=== PATIENT | male | born 1950 | race Two or more races ===

== ENCOUNTER 2023-02-08 10:30 | Outpatient (REF) | payer MEDICARE, SELFPAY ==
[2023-02-08 14:46] LABS: SARS-CoV-2 Ag NEGATIVE (NEGATIVE)
[2023-02-08 15:37] LABS: SARS-CoV-2 NAA NOT DETECTED (NOT DETECTE)
== END 2023-02-08 10:31 ==
LOC: LAB 10:30
PROVIDERS: PCP Internal Medicine; Visit Provider Internal Medicine
DX: Z20.822 Contact with and (suspected) exposure to COVID-19 (principal)
CPT/HCPCS: 87635; 87811

== ENCOUNTER 2023-02-23 19:07 | Inpatient (IN) | payer MEDICARE, SELFPAY ==
[2023-02-23 19:13] VITALS: BP 133/87; PULSE 98; RESP 20; TEMP 37.3; O2SAT 98; BMI 31.6
--- NOTE | 2023-02-23 19:54 | ED_ITS ---
HPI - Abdominal Pain General Chief Complaint: Abdominal Pain Stated Complaint: ABDOMINAL PAIN Time Seen by Provider: 02/23/23 19:45 Source: patient Mode of arrival: walk-in History of Present Illness HPI narrative: presents complaining of a headache. States similar headaches at least once a week for past several months. states upcoming appointment with his physician for the headache. today complains of abdominal pain and uncontrolled shaking chills. States chills finally stop enroute to the hospital. Emesis once enroute as well. Headache continues but has improved. Still has abdominal pain. No diarrhea. No definite fever .Does feel weak MD elicited complaint: Reports abdominal pain Onset (ago): hour(s) Related Data Home Medications Medication Instructions Recorded Confirmed latanoprost 0.005 % eye drops 1 drp ophthalmic (eye) .QHS 02/23/23 02/23/23 losartan 100 1 tab PO DAILY 02/23/23 02/23/23 mg-hydrochlorothiazide 25 mg tablet Allergies Allergy/AdvReac Type Severity Reaction Status Date / Time No Known Drug Allergies Allergy Verified 02/23/23 19:13 Review of Systems ROS Status of ROS 10 or more systems reviewed and unremarkable except as noted in history and below Exam Constitutional Vital Signs - 24 hr 02/23/23 19:13 02/23/23 19:28 02/23/23 21:21 Temperature 99.2 F 99.4 F Pulse Rate [Monitor] 98 H 101 H Respiratory Rate 20 16 Blood Pressure [Left Arm] 133/87 H 100/58 L Pulse Oximetry 98 94 L Oxygen Delivery Method Room Air Room Air Room Air 02/23/23 22:16 Temperature Pulse Rate [Monitor] 105 H Respiratory Rate 16 Blood Pressure [Left Arm] 124/72 H Pulse Oximetry 94 L Oxygen Delivery Method Room Air Common normals: average body habitus, oriented x3, no limitations and well nourished HENDE Common normals: normocephalic and head/scalp atraumatic Eye Common normals: EOMs intact bilaterally and conjunctivae normal Respiratory Common normals: normal respiratory effort, no retractions, no use of accessory muscles and clear to auscultation bilaterally Cardio Common normals: regular rhythm, S1 normal heart sound and S2 normal heart sound GI Other: epigastric tenderness. No guarding or rebound Extremity Common normals: normal to inspection, full ROM and no joint enlargement Neuro Common normals: oriented x3, CN's II-XII intact bilaterally, moves all extremities, no focal motor deficits and no sensory deficits noted Psych Appearance: grossly normal Course Vital Signs Vital signs: Vital Signs Temperature 99.2 F 02/23/23 19:13 Pulse Rate 98 H 02/23/23 19:13 Respiratory Rate 20 02/23/23 19:13 Blood Pressure 133/87 H 02/23/23 19:13 Pulse Oximetry 98 02/23/23 19:13 Oxygen Delivery Method Room Air 02/23/23 19:13 Temperature 99.4 F 02/23/23 21:21 Pulse Rate 105 H 02/23/23 22:16 Respiratory Rate 16 02/23/23 22:16 Blood Pressure 124/72 H 02/23/23 22:16 Pulse Oximetry 94 L 02/23/23 22:16 Oxygen Delivery Method Room Air 02/23/23 22:16 MDM - Abdominal Pain MDM Narrative Medical decision making narrative: patient presents with acute onset of epigastric abdominal pain. Workup reveal acute pancreatitis and also elevation of LFT including alk phos and T. bili. 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 Discussed with Surgery Dr Elam and he recommended the patient be transferred to a facility that could perform an ERCP. Patient accepted in transfer to [facility]. Discussed with the hospitalist and GI Lab Data Labs: Lab Results 02/23/23 Range/Units 19:50 WBC 8.2 (4.0-11.0) 10^3/uL RBC 4.88 (4.70-6.10) 10^6/uL Hgb 15.0 (14.0-18.0) g/dL Hct 41.6 L (42.0-54.0) % MCV 85.2 (80.0-94.0) fL MCH 30.7 (25.9-34.0) pg MCHC 36.1 H (29.9-35.2) g/dL RDW 13.0 (11.0-15.0) % Plt Count 164 (150-450) 10^3/uL MPV 10.4 (9.5-13.5) fL Neut % (Auto) 89.1 H (43.0-75.0) % Lymph % (Auto) 6.5 L (20.5-60.0) % [place] % (Auto) 3.1 (1.7-12.0) % Eos % (Auto) 0.4 L (0.9-7.0) % Baso % (Auto) 0.4 (0.2-2.0) % Neut # (Auto) 7.3 H (1.4-6.5) 10^3/uL Lymph # (Auto) 0.5 L (1.2-3.8) 10^3/uL [place] # (Auto) 0.3 (0.3-0.8) 10^3/uL Eos # (Auto) 0.0 (0.0-0.7) 10^3/uL Baso # (Auto) 0.0 (0.0-0.1) 10^3/uL Abs Immat Gran (auto) 0.04 H (0.00-0.03) 10^3/uL Imm/Tot Granulo (auto) 0.5 (0.0-0.5) % Sodium 137 (136-145) mmol/L Potassium 3.5 (3.5-5.1) mmol/L Chloride 102 (98-107) mmol/L Carbon Dioxide 27.5 (21.0-32.0) mmol/L Anion Gap 11.0 BUN 26.0 H (7.0-18.0) mg/dL Creatinine 1.20 (0.70-1.30) mg/dL Est GFR ( Amer) >60 (>=60) Est GFR (Non-Af Amer) 59 L (>=60) BUN/Creatinine Ratio 21.7 Glucose 139 H (74-106) mg/dL Lactate 1.7 (0.4-2.0) mmol/L Calcium 8.8 (8.5-10.1) mg/dL Total Bilirubin 4.7 H (0.2-1.0) mg/dL AST 107 H (15-37) U/L ALT 149 H (16-63) U/L Alkaline Phosphatase 298 H (46-116) U/L Total Protein 7.1 (6.4-8.2) g/dL Albumin 3.7 (3.4-5.0) g/dL Globulin 3.4 g/dL Albumin/Globulin Ratio 1.1 Lipase 3823.0 H* (73.0-393.0) U/L Urine Color Dk. orange (YELLOW) Urine Clarity Clear (CLEAR) Urine pH 6.0 (5.0-9.0) Ur Specific [place] >=1.030 A (1.005-1.025) Urine Protein Trace (NEG/TRACE) mg/dL Urine Glucose (UA) Negative (NEGATIVE) mg/dL Urine Ketones Trace A (NEGATIVE) mg/dL Urine Occult Blood Negative (NEGATIVE) Urine Nitrite Negative (NEGATIVE) Urine Bilirubin Moderate A (NEGATIVE) Urine Urobilinogen >=8.0 (0.2-1.0) EU/dL Ur Leukocyte Esterase Negative (NEGATIVE) Urine RBC 0-2 (0-2) #/HPF Urine WBC 0-2 A (NONE SEEN) #/HPF Ur Squamous Epith Cells Few A (NONE/RARE) #/LPF Urine Crystals None seen (None Seen) #/HPF Urine Bacteria Trace A (NONE SEEN) #/HPF Urine Casts None seen (NONE SEEN) #/LPF Urine Mucus Small A (NONE SEEN) Ur Culture Indicated? No Discharge Plan Discharge Chief Complaint: Abdominal Pain Clinical Impression: Acute pancreatitis Patient Disposition: [facility] Discharge Location: [facility] Condition: Fair Mode of Transportation: EMS
--- NOTE | 2023-02-23 19:57 | CT_ITS ---
[address] [address] Patient Name: YAEL POE MRN: [id number] date: 1950 Sex: M Assigned Patient Location: ER Current Patient Location: ER Accession/Order Number: [id number] Exam Date: 02/23/2023 20:45 Report Date: 02/23/2023 21:36 At the request of: SANTY ROBIN Procedure: CT abdomen pelvis w con EXAM: CT abdomen pelvis w con HISTORY: abdominal pain COMPARISON: 04/06/2022 TECHNIQUE: CT of abdomen and pelvis with intravenous contrast FINDINGS: TUBES AND IMPLANTS: None. LOWER CHEST: Mild cystic changes which may represent paraseptal emphysema. Mild cardiomegaly. Small hiatal hernia. ABDOMEN and PELVIS ABDOMINAL WALL AND SOFT TISSUES: Unremarkable. BONES: No suspicious lesions. Multilevel degenerative changes of the spine. ARTERIES: Mild aortoiliac atherosclerosis without aneurysm VEINS: Unremarkable. LYMPH NODES: Unremarkable. PERITONEUM/ RETROPERITONEUM: Unremarkable. BOWEL: No obstruction. Redemonstration of small bowel diverticula. Mild colonic diverticula APPENDIX: Unremarkable LIVER: No focal lesions within the [id number] GALLBLADDER: Unremarkable. BILE DUCTS: Not dilated SPLEEN: Enlarged measuring 15.5 centimeters PANCREAS: Unremarkable. ADRENALS: Unremarkable. KIDNEYS/ URETERS: Unremarkable. REPRODUCTIVE ORGANS: Unremarkable URINARY BLADDER: Unremarkable. IMPRESSION: 1. No evidence of acute abdominopelvic process. 2. Splenomegaly. 3. Mild colonic diverticulosis. Redemonstration of small bowel diverticula. 4. Small hiatal hernia. 5. Mild cardiomegaly. Electronically authenticated by: ERIKA WRIGHT Date: 02/23/2023 21:36
--- NOTE | 2023-02-23 19:57 | CT_ITS ---
The [address] [address] Patient Name: YAEL POE MRN: [id number] date: 1950 Sex: M Assigned Patient Location: ER Current Patient Location: ER Accession/Order Number: [id number] Exam Date: 02/23/2023 20:45 Report Date: 02/23/2023 21:14 At the request of: SANTY ROBIN Procedure: CT head/brain wo con EXAMINATION: CT head/brain wo con, 02/23/2023 8:45 PM EDT HISTORY: Headache COMPARISON: None. TECHNIQUE: CT scan of the head was performed without IV contrast. CT dose reduction technique was used, including Automated Exposure Control. FINDINGS: BRAIN PARENCHYMA/CSF SPACES: Ventricles are normal in size for age. There is no hemorrhage, mass effect or midline shift. Mild low attenuation in the white matter consistent with chronic microvascular ischemia. PARANASAL SINUSES: Clear. SKULL BASE AND CALVARIUM: Normal. EXTRACRANIAL SOFT TISSUES: There is scalp soft tissue swelling at the vertex. IMPRESSION: 1. No acute intracranial abnormality. 2. Scalp soft tissue swelling at the vertex. Electronically authenticated by: JIMBO RITTER Date: 02/23/2023 21:14
[2023-02-23 20:10] LABS: Basophils Percent Auto 0.4 % (0.2-2.0); Bilirubin Urine MODERATE (NEGATIVE); Blood Urine NEGATIVE (NEGATIVE); Clarity Urine CLEAR (CLEAR); Color Urine DK. ORANGE (YELLOW); Eosinophils Percent Auto 0.4 % (0.9-7.0); Glucose Urine UA NEGATIVE (NEGATIVE); Hematocrit 41.6 % (42.0-54.0); Immature Granulocytes Abs Auto 0.04 10^3/uL (0.00-0.03); Immature Granulocytes Pct Auto 0.5 % (0.0-0.5); Ketones Urine TRACE mg/dL (NEGATIVE); Leukocyte Esterase Urine NEGATIVE (NEGATIVE); Lymphocytes Absolute Auto 0.5 10^3/uL (1.2-3.8); Lymphocytes Percent Auto 6.5 % (20.5-60.0); Mean Corpuscular HGB Conc 36.1 g/dL (29.9-35.2); Mean Corpuscular Hemoglobin 30.7 pg (25.9-34.0); Mean Corpuscular Volume 85.2 fL (80.0-94.0); Mean Platelet Volume 10.4 fL (9.5-13.5); Monocytes Absolute Auto 0.3 10^3/uL (0.3-0.8); Monocytes Percent Auto 3.1 % (1.7-12.0); Neutrophils Absolute Auto 7.3 10^3/uL (1.4-6.5); Neutrophils Percent Auto 89.1 % (43.0-75.0); Nitrite Urine NEGATIVE (NEGATIVE); Platelet Count 164 10^3/uL (150-450); Protein Urine TRACE mg/dL (NEG/TRACE); Red Blood Count 4.88 10^6/uL (4.70-6.10); Specific Gravity Urine >=1.030 (1.005-1.025); Urobilinogen Urine >=8.0 EU/dL (0.2-1.0); White Blood Count 8.2 10^3/uL (4.0-11.0)
[2023-02-23 20:11] LABS: Urine Microscopic Indicated YES
[2023-02-23] MEDS: 0.9 % SODIUM CHLORIDE 1,000 ML 999 ML IV ×2 (20:16→22:33)
[2023-02-23] MEDS: METOCLOPRAMIDE HCL 10 MG/2 ML VIAL IVP (20:17)
[2023-02-23] MEDS: MORPHINE SULFATE 4 MG/ML VIAL IV (20:17)
[2023-02-23 20:31] LABS: Lactate/Lactic Acid 1.7 mmol/L (0.4-2.0)
[2023-02-23 20:33] LABS: Bacteria Urine TRACE #/HPF (NONE SEEN); Cast Seen? NONE SEEN #/LPF (NONE SEEN); Crystals Seen? None Seen #/HPF (None Seen); Mucus Urine SMALL (NONE SEEN); RBC Urine 0-2 #/HPF (0-2); Squamous Epithelial Cell Urine FEW #/LPF (NONE/RARE); WBC Urine 0-2 #/HPF (NONE SEEN)
[2023-02-23 20:34] LABS: Urine Culture Indicated NO
[2023-02-23 20:38] LABS: Alanine Aminotransferase 149 U/L (16-63); Albumin Globulin Ratio 1.1; Albumin Level 3.7 g/dL (3.4-5.0); Alkaline Phosphatase 298 U/L (46-116); Aspartate Amino Transferase 107 U/L (15-37); BUN Creatinine Ratio 21.7; Bilirubin Total 4.7 mg/dL (0.2-1.0); Calcium 8.8 mg/dL (8.5-10.1); Carbon Dioxide 27.5 mmol/L (21.0-32.0); Chloride 102 mmol/L (98-107); Estimated GFR (African America >60 (>=60); Estimated GFR (Non-African Ame 59 (>=60); Globulin 3.4 g/dL; Glucose 139 mg/dL (74-106); Potassium 3.5 mmol/L (3.5-5.1); Sodium 137 mmol/L (136-145); Total Protein 7.1 g/dL (6.4-8.2)
--- NOTE | 2023-02-23 20:55 | PC.NURSE ---
aware of the Lipase of 3823 called by Beth in lab at 2036
[2023-02-23 21:21] VITALS: BP 100/58; PULSE 101; RESP 16; TEMP 37.4; O2SAT 94
[2023-02-23 22:16] VITALS: BP 124/72; PULSE 105; RESP 16; O2SAT 94
[2023-02-23] MEDS: PIPERACILLIN SODIUM/TAZOBACTAM 3.375 GM in 0.9 % SODIUM CHLORIDE 50 ML IV (23:39)
[2023-02-24] VITALS (12 sets, daily range): BP systolic 86–131; BP diastolic 49–79; PULSE 74–103; RESP 18–20; TEMP 36.8–37.1; O2SAT 92–94; BMI 31.5
--- NOTE | 2023-02-24 10:53 | ED_ITS ---
HPI - Abdominal Pain General Chief Complaint: Abdominal Pain Stated Complaint: ABDOMINAL PAIN Time Seen by Provider: 02/23/23 19:45 Source: patient Mode of arrival: walk-in History of Present Illness HPI narrative: please see Dr. Gaitan full history and physical MD elicited complaint: Reports abdominal pain Related Data Home Medications Medication Instructions Recorded Confirmed latanoprost 0.005 % eye drops 1 drp ophthalmic (eye) .QHS 02/23/23 02/23/23 losartan 100 1 tab PO DAILY 02/23/23 02/23/23 mg-hydrochlorothiazide 25 mg tablet Allergies Allergy/AdvReac Type Severity Reaction Status Date / Time No Known Drug Allergies Allergy Verified 02/23/23 19:13 Exam Constitutional Vital Signs - 24 hr 02/23/23 19:28 02/23/23 21:21 02/23/23 22:16 Temperature 99.4 F Pulse Rate [Monitor] 101 H 105 H Respiratory Rate 16 16 Blood Pressure Blood Pressure [Left Arm] 100/58 L 124/72 H Pulse Oximetry 94 L 94 L Oxygen Delivery Method Room Air Room Air Room Air 02/24/23 01:12 02/24/23 03:01 02/24/23 04:00 Temperature 98.8 F Pulse Rate [Monitor] 103 H 96 H Respiratory Rate 20 20 Blood Pressure Blood Pressure [Left Arm] 98/65 114/71 108/66 Pulse Oximetry 94 L 94 L 92 L Oxygen Delivery Method Room Air Room Air Room Air 02/24/23 05:50 02/24/23 05:50 02/24/23 06:19 Temperature Pulse Rate [Monitor] 86 Respiratory Rate 18 Blood Pressure Blood Pressure [Left Arm] 106/64 116/66 Pulse Oximetry 94 L 94 L Oxygen Delivery Method Room Air Room Air 02/24/23 07:00 02/24/23 08:00 02/24/23 09:00 Temperature Pulse Rate [Monitor] Respiratory Rate Blood Pressure 116/49 L 113/71 86/58 L Blood Pressure [Left Arm] Pulse Oximetry 92 L 93 L 93 L Oxygen Delivery Method 02/24/23 09:00 02/24/23 09:40 02/24/23 10:00 Temperature Pulse Rate [Monitor] Respiratory Rate Blood Pressure 86/58 L 117/66 111/66 Blood Pressure [Left Arm] Pulse Oximetry 93 L 92 L 94 L Oxygen Delivery Method Course Vital Signs Vital signs: Vital Signs Temperature 99.2 F 02/23/23 19:13 Pulse Rate 98 H 02/23/23 19:13 Respiratory Rate 20 02/23/23 19:13 Blood Pressure 133/87 H 02/23/23 19:13 Pulse Oximetry 98 02/23/23 19:13 Oxygen Delivery Method Room Air 02/23/23 19:13 Temperature 98.3 F 02/24/23 18:47 Pulse Rate 79 02/24/23 18:47 Respiratory Rate 18 02/24/23 18:47 Blood Pressure 117/72 02/24/23 18:47 Pulse Oximetry 94 L 02/24/23 18:47 Oxygen Delivery Method Room Air 02/24/23 18:47 MDM - Abdominal Pain MDM Narrative Medical decision making narrative: the plan is to transfer the patient to [facility] but at this point I do not have a bed. He will be admitted here until a bed is available at [facility]. The patient is being transferred because he needs ERCP. Differential Diagnosis Differential diagnosis: Likely abdominal pain, constipation, gastroenteritis and pancreatitis Lab Data Attestation: I reviewed the patient's lab results. Labs: Lab Results 02/23/23 Range/Units 19:50 WBC 8.2 (4.0-11.0) 10^3/uL RBC 4.88 (4.70-6.10) 10^6/uL Hgb 15.0 (14.0-18.0) g/dL Hct 41.6 L (42.0-54.0) % MCV 85.2 (80.0-94.0) fL MCH 30.7 (25.9-34.0) pg MCHC 36.1 H (29.9-35.2) g/dL RDW 13.0 (11.0-15.0) % Plt Count 164 (150-450) 10^3/uL MPV 10.4 (9.5-13.5) fL Neut % (Auto) 89.1 H (43.0-75.0) % Lymph % (Auto) 6.5 L (20.5-60.0) % [place] % (Auto) 3.1 (1.7-12.0) % Eos % (Auto) 0.4 L (0.9-7.0) % Baso % (Auto) 0.4 (0.2-2.0) % Neut # (Auto) 7.3 H (1.4-6.5) 10^3/uL Lymph # (Auto) 0.5 L (1.2-3.8) 10^3/uL [place] # (Auto) 0.3 (0.3-0.8) 10^3/uL Eos # (Auto) 0.0 (0.0-0.7) 10^3/uL Baso # (Auto) 0.0 (0.0-0.1) 10^3/uL Abs Immat Gran (auto) 0.04 H (0.00-0.03) 10^3/uL Imm/Tot Granulo (auto) 0.5 (0.0-0.5) % Sodium 137 (136-145) mmol/L Potassium 3.5 (3.5-5.1) mmol/L Chloride 102 (98-107) mmol/L Carbon Dioxide 27.5 (21.0-32.0) mmol/L Anion Gap 11.0 BUN 26.0 H (7.0-18.0) mg/dL Creatinine 1.20 (0.70-1.30) mg/dL Est GFR ( Amer) >60 (>=60) Est GFR (Non-Af Amer) 59 L (>=60) BUN/Creatinine Ratio 21.7 Glucose 139 H (74-106) mg/dL Lactate 1.7 (0.4-2.0) mmol/L Calcium 8.8 (8.5-10.1) mg/dL Total Bilirubin 4.7 H (0.2-1.0) mg/dL AST 107 H (15-37) U/L ALT 149 H (16-63) U/L Alkaline Phosphatase 298 H (46-116) U/L Total Protein 7.1 (6.4-8.2) g/dL Albumin 3.7 (3.4-5.0) g/dL Globulin 3.4 g/dL Albumin/Globulin Ratio 1.1 Lipase 3823.0 H* (73.0-393.0) U/L Urine Color Dk. orange (YELLOW) Urine Clarity Clear (CLEAR) Urine pH 6.0 (5.0-9.0) Ur Specific [place] >=1.030 A (1.005-1.025) Urine Protein Trace (NEG/TRACE) mg/dL Urine Glucose (UA) Negative (NEGATIVE) mg/dL Urine Ketones Trace A (NEGATIVE) mg/dL Urine Occult Blood Negative (NEGATIVE) Urine Nitrite Negative (NEGATIVE) Urine Bilirubin Moderate A (NEGATIVE) Urine Urobilinogen >=8.0 (0.2-1.0) EU/dL Ur Leukocyte Esterase Negative (NEGATIVE) Urine RBC 0-2 (0-2) #/HPF Urine WBC 0-2 A (NONE SEEN) #/HPF Ur Squamous Epith Cells Few A (NONE/RARE) #/LPF Urine Crystals None seen (None Seen) #/HPF Urine Bacteria Trace A (NONE SEEN) #/HPF Urine Casts None seen (NONE SEEN) #/LPF Urine Mucus Small A (NONE SEEN) Ur Culture Indicated? No Discharge Plan Discharge Chief Complaint: Abdominal Pain Clinical Impression: Acute pancreatitis Patient Disposition: Admitted As Inpatient Time of Disposition Decision: 10:55 Condition: Fair Discharge Date/Time: 02/24/23 11:36
[2023-02-24] MEDS: 0.9 % SODIUM CHLORIDE 1,000 ML 100 ML IV (13:39)
[2023-02-24] MEDS: PIPERACILLIN SODIUM/TAZOBACTAM 3.375 GM in 0.9 % SODIUM CHLORIDE 50 ML IV (14:59)
--- NOTE | 2023-02-24 18:12 | P.HP_ITS ---
H&P: HPI History of Present Illness Chief complaint: Abdominal pain Narrative: 72 y/o male to ER with abdominal pain. Developed diffuse abdominal pain and in epigastric region. No radiation to other parts of abdomen or back. Severe nausea and started to have emesis. C/o cold chills but no fever. Developed s evere GU. Symptoms persisted and to ER. WBC normal and low grade temp. LFTs and TB elevated. Lipase very high at 3823. CT abdomen normal. Case discussed with surgeon who felt patient needed transferred for ERCP. Accepted for transfer but no beds available and admitted. Review of Systems ROS Constitutional Reports: chills; Denies: fever, fatigue or night sweats Cardiovascular Denies: chest pain, palpitations or edema Respiratory Denies: shortness of breath, cough or wheezing Gastrointestinal Reports: abdominal pain, nausea and vomiting; Denies: diarrhea Genitourinary Denies: painful urination Meds Home Medications and Allergies Home Medications Medication Instructions Recorded Confirmed Type latanoprost 0.005 % eye drops 1 drp ophthalmic (eye) .QHS 02/23/23 02/23/23 History losartan 100 1 tab PO DAILY 02/23/23 02/23/23 History mg-hydrochlorothiazide 25 mg tablet Allergies Allergy/AdvReac Type Severity Reaction Status Date / Time No Known Drug Allergies Allergy Verified 02/23/23 19:13 Exam Constitutional Vital Signs - 24 hr 02/23/23 19:13 02/23/23 19:28 02/23/23 21:21 Temperature 99.2 F 99.4 F Pulse Rate Pulse Rate [Monitor] 98 H 101 H Respiratory Rate 20 16 Blood Pressure Blood Pressure [Left Arm] 133/87 H 100/58 L Pulse Oximetry 98 94 L Oxygen Delivery Method Room Air Room Air Room Air 02/23/23 22:16 02/24/23 01:12 02/24/23 03:01 Temperature 98.8 F Pulse Rate Pulse Rate [Monitor] 105 H 103 H 96 H Respiratory Rate 16 20 20 Blood Pressure Blood Pressure [Left Arm] 124/72 H 98/65 114/71 Pulse Oximetry 94 L 94 L 94 L Oxygen Delivery Method Room Air Room Air Room Air 02/24/23 04:00 02/24/23 05:50 02/24/23 05:50 Temperature Pulse Rate Pulse Rate [Monitor] Respiratory Rate Blood Pressure Blood Pressure [Left Arm] 108/66 106/64 Pulse Oximetry 92 L 94 L Oxygen Delivery Method Room Air Room Air 02/24/23 06:19 02/24/23 07:00 02/24/23 08:00 Temperature Pulse Rate Pulse Rate [Monitor] 86 Respiratory Rate 18 Blood Pressure 116/49 L 113/71 Blood Pressure [Left Arm] 116/66 Pulse Oximetry 94 L 92 L 93 L Oxygen Delivery Method Room Air 02/24/23 09:00 02/24/23 09:00 02/24/23 09:40 Temperature Pulse Rate Pulse Rate [Monitor] Respiratory Rate Blood Pressure 86/58 L 86/58 L 117/66 Blood Pressure [Left Arm] Pulse Oximetry 93 L 93 L 92 L Oxygen Delivery Method 02/24/23 10:00 02/24/23 11:44 Temperature 98.3 F Pulse Rate 74 Pulse Rate [Monitor] Respiratory Rate 18 Blood Pressure 111/66 Blood Pressure [Left Arm] 131/79 H Pulse Oximetry 94 L 94 L Oxygen Delivery Method Room Air Documenting provider has reviewed patient's vital signs: yes Common normals: no apparent distress, oriented x3 and alert HENMT Common normals: normocephalic Eye Common normals: PERRL and EOMs intact bilaterally Respiratory Common normals: clear to auscultation bilaterally Cardio Common normals: regular rate, regular rhythm, no gallops, no murmurs and no rub GI Common normals: soft to palpation Auscultation: normoactive bowel sounds Palpation: tender (Diffuse TTP); no guarding and no rebound tenderness present Extremity General: no edema Results Labs Labs: Short CBC 02/23/23 Range/Units 19:50 WBC 8.2 (4.0-11.0) 10^3/uL Hgb 15.0 (14.0-18.0) g/dL Hct 41.6 L (42.0-54.0) % Plt Count 164 (150-450) 10^3/uL BMP 02/23/23 19:50 Sodium 137 Potassium 3.5 Chloride 102 Carbon Dioxide 27.5 BUN 26.0 H Creatinine 1.20 Glucose 139 H Calcium 8.8 Liver Function 02/23/23 Range/Units 19:50 Total Bilirubin 4.7 H (0.2-1.0) mg/dL AST 107 H (15-37) U/L ALT 149 H (16-63) U/L Alkaline Phosphatase 298 H (46-116) U/L Albumin 3.7 (3.4-5.0) g/dL Urine 02/23/23 Range/Units 19:50 Urine Color Dk. orange (YELLOW) Urine Clarity Clear (CLEAR) Urine pH 6.0 (5.0-9.0) Ur Specific [place] >=1.030 A (1.005-1.025) Urine Protein Trace (NEG/TRACE) mg/dL Urine Glucose (UA) Negative (NEGATIVE) mg/dL Imaging CT scan - abdomen: Attestation: I have reviewed the pertinent imaging results. Assessment and Plan Assessment and Plan (1) Acute pancreatitis: (2) Elevated liver enzymes: (3) Benign essential hypertension: Plan Start zosyn for concern of sepsis due to ascending cholangitis. Likely stone causing pancreatitis as evidenced by elevated LFTs and bilirubin. Patient likely needs ERCP. Continue IV fluids. Will transfer to [facility] once bed available.
[2023-02-24] MEDS: ENOXAPARIN SODIUM 40 MG/0.4 ML SYRINGE SUBQ (19:24)
== END 2023-02-24 19:57 | disposition short-term general hospital (02) | DRG 439 ==
LOC: ER 02-24 10:55 → MS 02-24 11:02
PROVIDERS: Admitting Provider Family Medicine; Emergency Provider Internal Medicine; PCP Internal Medicine; Visit Provider Family Medicine
DX: K85.90 Acute pancreatitis without necrosis or infection, unspecified (principal); K80.30 Calculus of bile duct with cholangitis, unspecified, without obstruction; R74.01 Elevation of levels of liver transaminase levels; I10 Essential (primary) hypertension; Z79.899 Other long term (current) drug therapy
CPT/HCPCS: 36415; 70450; 74177; 80053; 81003; 81015; 83605; 83690; 85025; 96365; 96366; 96372; 96375; 99285; Q9967

== ENCOUNTER 2023-06-29 14:27 | Outpatient (OUT) | payer MEDICARE, SELFPAY ==
[2023-06-29 14:54] LABS: Basophils Percent Auto 0.6 % (0.2-2.0); Eosinophils Absolute Auto 0.1 10^3/uL (0.0-0.7); Eosinophils Percent Auto 1.5 % (0.9-7.0); Hematocrit 44.2 % (42.0-54.0); Hemoglobin 15.3 g/dL (14.0-18.0); Immature Granulocytes Abs Auto 0.02 10^3/uL (0.00-0.03); Immature Granulocytes Pct Auto 0.3 % (0.0-0.5); Lymphocytes Absolute Auto 1.9 10^3/uL (1.2-3.8); Lymphocytes Percent Auto 28.7 % (20.5-60.0); Mean Corpuscular HGB Conc 34.6 g/dL (29.9-35.2); Mean Corpuscular Hemoglobin 30.9 pg (25.9-34.0); Mean Corpuscular Volume 89.3 fL (80.0-94.0); Mean Platelet Volume 10.6 fL (9.5-13.5); Monocytes Absolute Auto 0.4 10^3/uL (0.3-0.8); Monocytes Percent Auto 5.8 % (1.7-12.0); Neutrophils Absolute Auto 4.1 10^3/uL (1.4-6.5); Neutrophils Percent Auto 63.1 % (43.0-75.0); Platelet Count 158 10^3/uL (150-450); Red Blood Count 4.95 10^6/uL (4.70-6.10); Red Cell Distribution Width 12.7 % (11.0-15.0); White Blood Count 6.5 10^3/uL (4.0-11.0)
[2023-06-29 14:58] LABS: BUN Creatinine Ratio 20.6; Calcium 8.7 mg/dL (8.5-10.1); Carbon Dioxide 31.4 mmol/L (21.0-32.0); Chloride 104 mmol/L (98-107); Estimated GFR (African America >60 (>=60); Estimated GFR (Non-African Ame >60 (>=60); Glucose 124 mg/dL (74-106); Potassium 3.4 mmol/L (3.5-5.1); Sodium 142 mmol/L (136-145)
[2023-06-29 15:18] LABS: Percent Iron Saturation 19.1 %
[2023-06-30 12:12] LABS: Transferrin 267 mg/dL (177-329)
--- OUTSIDE RECORDS SUMMARY | 2023-08-09 15:47 | XMS_ITS | CCD ---
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 Name Role Phone MD Frank Rivas Attending Provider MD Kindra Rosales Primary Care Provider [phone] SHAIKH Colby ROSALES Primary Care Unavailable KIMBERLY, DR GALEAS Admitting Unavailable KIMBERLY, DR GALEAS Attending Unavailable AVEL, DR RAFAELA Pierson Consulting Unavailable KIMBERLY, DR GALEAS Consulting Unavailable BOBBY, JIMENES H Admitting Unavailable FASHAIKH Colby BUENO Attending Unavailable BOBBY, JIMENES H Primary Care Unavailable RAFAELA CALL Consulting Unavailable FAMYLES, SHAIKH Colby Consulting Unavailable FAMYLES, JIMENES H Admitting Unavailable SHAIKH Colby ROSALES Attending Unavailable BOBBY, JIMENES H Primary Care Unavailable FAWGRETCEHN, JIMENES H Consulting Unavailable FAMYLES, JIMENES H Primary Care Unavailable KIMBERLY, DR GALEAS Admitting Unavailable KIMBERLY, DR GALEAS Attending Unavailable SANDY COBOS Consulting Unavailable Gordo Pinto Unavailable Unavailable Primary Care Provider UnavailLUCAS Palmer Consulting Unavailable NORA DE ANDA Attending Unavailable TOMÁS LOPEZ Admitting Unavailable SANTY DO Referring Unavailable ARLIN HANNHA Consulting Unavailable NATASHA WHITNEY Consulting Unavailable SANTO WOODRUFF Consulting Unavail able Allergies Allergy Classification Reported Allergen(s) Allergy Type Date of Onset Reaction(s) Facility (1 source) Penicillin Drug Allergy 12-13-2021 [facility] Repository Medications Current Medications Medication Drug Class(es) Dates Sig (Normalized) Sig (Original) acetaminophen 500 mg oral tablet (2 sources) Start: 3 End: 3 acetaminophen (TYLENOL) tablet 1,000 mg dicyclomine hydrochloride 10 mg oral capsule (1 source) Anticholinergic Start: 3 dicyclomine (BENTYL) capsule 20 mg 0.4 ml enoxaparin sodium 100 mg/ml prefilled syringe (1 source) Low Molecular Weight Heparin Start: 3 enoxaparin (LOVENOX) injection 40 mg hydroCHLOROthiazide 25 mg / losartan potassium 100 mg oral tablet (1 source) Thiazide Diuretic, Angiotensin 2 Receptor Shaji Start: 2 take 1 tablet by mouth once daily Losartan-Hydrochlo rothiazide Active 25 - 100 TAB PO Daily January 13, 2022 1:46pm 100 ml magnesium sulfate 10 mg/ml injection (1 source) Start: 3 magnesium sulfate 1000 mg in dextrose 5% 100 mL IVPB methocarbamol 750 mg oral tablet (1 source) Muscle Relaxant Start: 3 methocarbamol (ROBAXIN) tablet 750 mg ondansetron 4 mg disintegrating oral tablet (1 source) Serotonin-3 Receptor Antagonist Start: 2 Ondansetron Active 4 MG PO As Directed January 13, 2022 1:46pm ondansetron (ZOFRAN-ODT) disintegrating tablet 4 mg (1 source) Start: 3 ondansetron (ZOFRAN-ODT) disintegrating tablet 4 mg oxyCODONE hydrochloride 5 mg oral tablet (2 sources) Opioid Agonist Start: 3 End: 3 take 1 tablet by mouth every six hours as needed for pain oxyCODONE (ROXICODONE) 5 MG immediate release tablet Indications: Acute cholecystitis due to biliary calculus Take 1 tablet by mouth every 6 hours as needed for Pain for up to 5 days. Max Daily Amount: 20 mg 20 tablet 0 03/02/2023 03/07/2023 Active Completed/Discontinued Medications Medication Drug Class(es) Dates Sig (Normalized) Sig (Original) hydroCHLOROthiazide 25 mg oral tablet (2 sources) Thiazide Diuretic Start: 02-27-2023 take 25 mg by mouth once daily 25 mg, Oral, DAILY, First dose on 02/27/23 at 2115, Until Discontinued 1 ml HYDROmorphone hydrochloride 1 mg/ml cartridge (2 sources) Opioid Agonist Start: 02-28-2023 End: 02-28-2023 HYDROmorphone (DILAUDID) injection 0.5 mg Start: 02-28-2023 End: 02-28-2023 HYDROmorphone (DILAUDID) inj ection 0.25 mg losartan potassium 50 mg oral tablet (2 sources) Angiotensin 2 Receptor Shaji Start: 02-27-2023 take 100 mg by mouth once daily 100 mg, Oral, DAILY, First dose on 02/27/23 at 2115, Until Discontinued take 1 tablet by mouth once samantha y losartan (COZAAR) 100 MG tablet Take 1 tablet by mouth daily 0 Active piperacillin-tazobactam (ZOS YN) 3,375 mg in sodium chloride 0.9 % 50 mL IVPB (mini-bag) (1 source) Start: 02-28-2023 End: 03-03-2023 piperacillin-tazobactam (ZOS YN) 3,375 mg in sodium chloride 0.9 % 50 mL IVPB (mini-bag) microencapsulated potassium chloride 20 meq extended release oral tablet (4 sources) Start: 02-27-2023 End: 02-27-2023 potassium chloride (KLOR-CON M) extended release tablet 20 mEq Start: 02-24-2023 End: 02-27-2023 potassium chloride 10 mEq/10 0 mL IVPB (Peripheral Line) 1000 ml sodium chloride 9 mg /ml injection (4 sources) Start: 02-24-2023 sodium chlorid e flush 0.9 % injection 5-40 mL Start: 02-24-2023 End: 03-01-2023 0.9 % sodium chloride infusi on Problems Active Problems Problem Classification Problem Date Documented Date Episodic/Chronic Abdominal pain (4 sources) Unspecified abdominal pain; Translations: [UNSPECIFIED ABDOMINAL PAIN] Onset: 04-06-2022 Episodic Biliary tract disease (3 sources) Acute cholecystitis due to biliary calculus; Translations: [Calculus of gallbladder with acute cholecystitis without obstruction] Onset: 02-24-2023 Episodic Essential hypertension (2 sources) Essential hypertension; Translations: [Essential (primary) hypertension] Onset: 02-25-2023 Chronic Fluid and electrolyte disorders (2 sources) Hypokalemia; Translations: [Dehydration] Onset: 12-15-2021 Episodic Other ear and sense organ disorders (2 sources) Hearing loss; Translations: [Unspecified hearing loss, unspecified ear] Onset: 02-25-2023 Chronic Other liver diseases (4 sources) Abnormal levels of other serum enzymes; Translations: [ABNORMAL LEVELS OTHER SERUM ENZYMES] Onset: 04-15-2022 Episodic Other liver diseases (2 sources) Enzyme level - finding; Translations: [Transaminitis] Onset: 02-25-2023 Episodic Other liver diseases (2 sources) Alkaline phosphatase raised; Translations: [Abnormal levels of other serum enzymes] Onset: 02-25-2023 Episodic Other nutritional; endocrine; and metabolic disorders (2 sources) Hyperbilirubinemia; Translations: [Other disorders of bilirubin metabolism] Onset: 02-25-2023 Chronic Pancreatic disorders (not diabetes) (2 sources) Acute pancreatitis; Translations: [Acute pancreatitis without necrosis or infection, unspecified] Onset: 02-24-2023 Episodic Past or Other Problems Problem Classification Problem Date Documented Da te Episodic/Chronic Acute and unspecified renal failure (4 sources) Acute kidney failure, unspecified; Translations: [ACUTE KIDNEY FAILURE UNSPECIFIED] Onset: 12-16-2021 Episodic Malaise and fatigue (3 sources) Weakness; Translations: [WEAKNESS] Onset: 12-13-2021 Episodic Other aftercare (1 source) Other buttermaker helper (current) drug therapy; Translations: [OTH GROUP HOME CURRENT DRUG THERAPY] Onset: 12-15-2021 Episodic Screening and history of mental health and substance abuse codes (1 source) Personal history of nicotine dependence; Translations: [PERSONAL HISTORY OF NICOTINE DEPEND] Onset: 12-15-2021 Episodic Urinary tract infections (1 source) Urinary tract infection, site not specified; Translations: [UTI SITE NOT SPECIFIED] Onset: 12-15-2021 Episodic Results Test Name Value Interpretation Reference Range [facility] Hepatic Function Panelon Albumin [Mass/Vol] 2.8 g/dL Low 3.5 - 5.2 g/dL [facility] [employer] Albumin/Globulin [Mass ratio] 0.8 {ratio} Low 1.0 - 2.5 [facility] ALP [Catalytic activity/Vol] 182 U/L High 40 - 12 9 U/L [facility] ALT [Catalytic activity/Vol] 92 U/L High 5 - 41 U/L [facility] AST [Catalytic activity/Vol] 54 U/L High NINF - 40 U/L [facility] Bilirubin [Mass/Vol] 4.4 mg/dL High 0.3 - 1.2 mg/dL [facility] Bilirubin.direct [Mass/Vol] 2.9 mg/dL High NINF - 0 .3 mg/dL [facility] Bilirubin.indirect [Mass/Vol] 1.5 mg/dL High 0.0 - 1.0 mg/dL [facility] Interpretation and review of laboratory results Abnormal [facility] Protein [Mass/Vol] 6.1 g/dL Low 6.4 - 8.3 g/dL [facility] Liver Profileon 03-03-2023 Albumin [Mass/Vol] 2.8 g/dL Low 3.5-5.2 [facility] Comment on above: Performed By: #### C P, PJ, IOCAL, PT, TRIG, MG, LIP, CDP #### [facility] [address] [place] [id number] Iron Caster: Prabhjot Gross MD Albumin/Glob Ratio 0.8 Low 1.0-2.5 [facility] Comment on above: Performed By: #### C P, PJ, IOCAL, PT, TRIG, MG, LIP, CDP #### [facility] [employer] [address] [place] [address] [id number] Iron Caster: Prabhjot Gross MD Alkaline Phos 182 U/L High 40-129 [facility] Comment on above: Performed By: #### C P, PJ, IOCAL, PT, TRIG, MG, LIP, CDP #### [facility] [employer] [address] [place] [id number] Iron Caster: Prabhjot Gross MD ALT [Catalytic activity/Vol] 92 U/L High 5-41 [facility] Comment on above: Performed By: #### C P, PJ, IOCAL, PT, TRIG, MG, LIP, CDP #### [address] [address] Iron Caster: Prabhjot Gross MD AST [Catalytic activity/Vol] 54 U/L High <40 [facility] Comment on above: Performed By: #### C P, PJ, IOCAL, PT, TRIG, MG, LIP, CDP #### [address] [address] Iron Caster: Prabhjot Gross MD Bilirubin [Mass/Vol] 4.4 mg/dL High 0.3-1.2 [facility] Comment on above: Performed By: #### C P, PJ, IOCAL, PT, TRIG, MG, LIP, CDP #### [address] [address] Iron Caster: Prabhjot Gross MD Bilirubin, Indirect 1.5 mg/dL High 0.0-1.0 [facility] Comment on above: Performed By: #### C P, PJ, IOCAL, PT, TRIG, MG, LIP, CDP #### [address] [address] Iron Caster: Prabhjot Gross MD Bilirubin.indirect [Mass/Vol] 2.9 mg/dL High <0.3 [facility] Comment on above: Performed By: #### C P, PJ, IOCAL, PT, TRIG, MG, LIP, CDP #### [address] [address] Iron Caster: Prabhjot Gross MD Protein [Mass/Vol] 6.1 g/dL Low 6.4-8.3 [facility] Comment on above: Performed By: #### C P, PJ, IOCAL, PT, TRIG, MG, LIP, CDP #### [address] [address] Iron Caster: Prabhjot Gross MD CBC with Auto Differentialon 03-02-2023 Basophils (Bld) [#/Vol] 0.03 10*3/uL [facility] Basophils/100 WBC (Bld) 0 % 0 - 2 % B [facility] Eosinophils (Bld) [#/Vol] 0.11 10*3/uL [facility] Eosinophils/100 WBC (Bld) 2 % 1 - 4 % [facility] Erythrocyte distribution width (RBC) [Ratio] 13.7 % 11.8 - 14.4 % [facility] Hematocrit (Bld) [Volume fraction] 36.5 % Low 40.7 - 50.3 % [facility] Hemoglobin (Bld) [Mass/Vol] 12.7 g/dL Low 13.0 - 17.0 g/dL [facility] Immature granulocytes (Bld) [#/Vol] 0.06 10*3/uL [facility] Immature granulocytes/100 WBC (Bld) 1 % High 0 [facility] Interpretation and review of laboratory results Abnormal [facility] Lymphocytes/100 WBC (Bld) 18 % Low 24 - 43 % [facility] Lymphocytes/100 WBC (Bld) 1.34 % [facility] MCH (RBC) [Entitic mass] 30.6 pg 25.2 - 33.5 pg [facility] MCHC (RBC) [Mass/Vol] 34.8 g/dL 28.4 - 34.8 g/dL [facility] MCV (RBC) [Entitic vol] 88.0 fL 82.6 - 102.9 fL [facility] Monocytes/100 WBC (Bld) 9 % 3 - 12 % [facility] Monocytes/100 WBC (Bld) 0.69 % [facility] Neutrophils/100 WBC (Bld) 70 % High 36 - 65 % [facility] Nucleated RBC/100 WBC (Bld) [Ratio] 0.0 % 0.0 per 100 WBC [facility] Platelet, Fluorescence 129 Low [facility] Platelets (Bld) [#/Vol] See Reflexed IPF Result [facility] Platelets reticulated/100 platelets Auto (Bld) 4.5 % 1.1 - 10.3 % [facility] RBC (Bld) [#/Vol] 4.15 10*6/uL Low 4.21 - 5.7 7 m/uL [facility] Segmented neutrophils/100 WBC (Bld) 5.18 % [facility] WBC other (Bld) [#/Vol] 7.4 B ON [facility] CBC with Diffon 03-02-2023 Platelet, Fluoresc. 129 k/uL Low 138-453 [facility] Comment on above: Performed By: #### C P, PJ, IOCAL, PT, TRIG, MG, LIP, CDP #### [place] [address] Iron Caster: Prabhjot Gross MD PLT, Immature Fract. 4.5 % Normal 1.1-10.3 [facility] Comment on above: Performed By: #### C P, PJ, IOCAL, PT, TRIG, MG, LIP, CDP #### [place] [address] Iron Caster: Prabhjot Gross MD Abs. Basophil 0.03 k/uL Normal 0.00-0.20 [facility] Comment on above: Performed By: #### C P, PJ, IOCAL, PT, TRIG, MG, LIP, CDP #### [facility] [employer] [address] [place] [address] Iron Caster: Prabhjot Gross MD Abs.Imm.Granulocyte 0.06 k/uL Normal 0.00-0.30 [facility] Comment on above: Performed By: #### C P, PJ, IOCAL, PT, TRIG, MG, LIP, CDP #### [facility] [employer] [address] [place] [address] Iron Caster: Prabhjot Gross MD Abs.Neutrophil (Seg) 5.18 k/uL Normal 1.50-8.10 [facility] Comment on above: Performed By: #### C P, PJ, IOCAL, PT, TRIG, MG, LIP, CDP #### [address] [address] Iron Caster: Prabhjot Gross MD Basophils/100 WBC (Bld) 0 % Normal 0-2 M [facility] Comment on above: Performed By: #### C P, PJ, IOCAL, PT, TRIG, MG, LIP, CDP #### [address] [address] Iron Caster: Prabhjot Gross MD Eosinophils (Bld) [#/Vol] 0.11 10*3/uL Normal 0.00-0.4 4 [facility] Comment on above: Performed By: #### C P, PJ, IOCAL, PT, TRIG, MG, LIP, CDP #### [address] [address] Iron Caster: Prabhjot Gross MD Eosinophils/100 WBC (Bld) 2 % Normal 1-4 [facility] Comment on above: Performed By: #### C P, PJ, IOCAL, PT, TRIG, MG, LIP, CDP #### [address] [address] Iron Caster: Prabhjot Gross MD Erythrocyte distribution wid th (RBC) [Ratio] 13.7 % Normal 11.8-14.4 [facility] Comment on above: Performed By: #### C P, PJ, IOCAL, PT, TRIG, MG, LIP, CDP #### [address] [address] Iron Caster: Prabhjot Gross MD Hematocrit (Bld) [Volume fraction] 36.5 % Low 4 0.7-50.3 [facility] Comment on above: Performed By: #### C P, PJ, IOCAL, PT, TRIG, MG, LIP, CDP #### [address] [address] Iron Caster: Prabhjot Gross MD Hemoglobin (Bld) [Mass/Vol] 12.7 g/dL Low 13.0-17. 0 [facility] Comment on above: Performed By: #### C P, PJ, IOCAL, PT, TRIG, MG, LIP, CDP #### [address] [address] Iron Caster: Prabhjot Gross MD Immature granulocytes/100 WBC (Bld) 1 % High 0 [facility] Comment on above: Performed By: #### C P, PJ, IOCAL, PT, TRIG, MG, LIP, CDP #### [place] [address] Iron Caster: Prabhjot Gross MD Lymphocytes (Bld) [#/Vol] 1.34 10*3/uL Normal 1.10-3.7 0 [facility] Comment on above: Performed By: #### C P, PJ, IOCAL, PT, TRIG, MG, LIP, CDP #### [place] [address] Iron Caster: Prabhjot Gross MD Lymphocytes/100 WBC (Bld) 18 % Low 24-43 [facility] Comment on above: Performed By: #### C P, PJ, IOCAL, PT, TRIG, MG, LIP, CDP #### [place] [address] Iron Caster: Prabhjot Gross MD MCH (RBC) [Entitic mass] 30.6 pg Normal 25.2-33.5 [facility] Comment on above: Performed By: #### C P, PJ, IOCAL, PT, TRIG, MG, LIP, CDP #### [address] [address] Iron Caster: Prabhjot Gross MD MCHC (RBC) [Mass/Vol] 34.8 g/dL Normal 28.4-34.8 [facility] Comment on above: Performed By: #### C P, PJ, IOCAL, PT, TRIG, MG, LIP, CDP #### [address] [address] Iron Caster: Prabhjot Gross MD MCV (RBC) [Entitic vol] 88.0 fL Normal 82.6-102.9 M [facility] Comment on above: Performed By: #### C P, PJ, IOCAL, PT, TRIG, MG, LIP, CDP #### [address] [address] Iron Caster: Prabhjot Gross MD Monocytes (Bld) [#/Vol] 0.69 10*3/uL Normal 0.10-1.20 [facility] Comment on above: Performed By: #### C P, PJ, IOCAL, PT, TRIG, MG, LIP, CDP #### [address] [address] Iron Caster: Prabhjot Gross MD Monocytes/100 WBC (Bld) 9 % Normal 3-12 M [facility] Comment on above: Performed By: #### C P, PJ, IOCAL, PT, TRIG, MG, LIP, CDP #### [address] [address] Iron Caster: Prabhjot Gross MD Neutrophil (Seg) 70 % High 36-65 [facility] Comment on above: Performed By: #### C P, PJ, IOCAL, PT, TRIG, MG, LIP, CDP #### [address] [address] Iron Caster: Prabhjot Gross MD NRBC Automated 0.0 per 100 WBC Normal 0.0 [facility] Comment on above: Performed By: #### C P, PJ, IOCAL, PT, TRIG, MG, LIP, CDP #### [address] [address] Iron Caster: Prabhjot Gross MD Platelet Count See Reflexed IPF Result Normal 138-453 [facility] Comment on above: Performed By: #### C P, PJ, IOCAL, PT, TRIG, MG, LIP, CDP #### [address] [address] Iron Caster: Prabhjot Gross MD RBC (Bld) [#/Vol] 4.15 10*6/uL Low 4.21-5.77 [facility] Comment on above: Performed By: #### C P, PJ, IOCAL, PT, TRIG, MG, LIP, CDP #### [address] [id number] Iron Caster: Prabhjot Gross MD WBC (Bld) [#/Vol] 7.4 10*3/uL Normal 3.5-11.3 [facility] Comment on above: Performed By: #### C P, PJ, IOCAL, PT, TRIG, MG, LIP, CDP #### [address] [address] Iron Caster: Prabhjot Gross MD Comp Met+Bili/rfx MGon 03-02 Creatinine [Mass/Vol] 0.8 mg/dL Normal 0.7-1.2 [facility] Comment on above: Result Comment: ICTE FORTINO SPECIMEN Performed By: #### C P, PJ, IOCAL, PT, TRIG, MG, LIP, CDP #### [address] [address] Iron Caster: Prabhjot Gross MD GFR/1.73 sq M.predicted umer g non-blacks MDRD (S/P/Bld) [Vol rate/Area] mL/min/{1.73_m2} Normal >60 [facility] Comment on above: Result Comment: These results are not intended for use in patients <18 years of age. eGFR results are calculated without a race factor using the 2020 CKD-EPI equation. Careful clinical correlation is recommended, particularly when comparing to results calculated using previous equations. The CKD-EPI equation is less accurate in patients with extremes of muscle mass, extra-renal metabolism of creatine, excessive creatine ingestion, or following therapy that affects renal tubular secretion. Performed By: #### C P, PJ, IOCAL, PT, TRIG, MG, LIP, CDP #### [address] [address] Iron Caster: Prabhjot Gross MD Potassium [Moles/Vol] 3.5 mmol/L Low 3.7-5.3 [facility] Comment on above: Performed By: #### C P, PJ, IOCAL, PT, TRIG, MG, LIP, CDP #### [place] [address] Iron Caster: Prabhjot Gross MD Albumin [Mass/Vol] 3.1 g/dL Low 3.5-5.2 [facility] Comment on above: Performed By: #### C P, PJ, IOCAL, PT, TRIG, MG, LIP, CDP #### [facility] [employer] [address] [place] [address] Iron Caster: Prabhjot Gross MD Albumin/Glob Ratio 1.3 Normal 1.0-2.5 [facility] Comment on above: Performed By: #### C P, PJ, IOCAL, PT, TRIG, MG, LIP, CDP #### [place] [address] Iron Caster: Prabhjot Gross MD Alkaline Phos 181 U/L High 40-129 [facility] Comment on above: Performed By: #### C P, PJ, IOCAL, PT, TRIG, MG, LIP, CDP #### [address] [address] Iron Caster: Prabhjot Gross MD ALT [Catalytic activity/Vol] 117 U/L High 5-41 [facility] Comment on above: Performed By: #### C P, PJ, IOCAL, PT, TRIG, MG, LIP, CDP #### [address] [address] Iron Caster: Prabhjot Gross MD Anion gap [Moles/Vol] 10 mmol/L Normal 9-17 [facility] Comment on above: Performed By: #### C P, PJ, IOCAL, PT, TRIG, MG, LIP, CDP #### [address] [address] Iron Caster: Prabhjot Gross MD AST [Catalytic activity/Vol] 89 U/L High <40 [facility] Comment on above: Performed By: #### C P, PJ, IOCAL, PT, TRIG, MG, LIP, CDP #### [address] [address] Iron Caster: Prabhjot Gross MD Bilirubin [Mass/Vol] 5.3 mg/dL High 0.3-1.2 [facility] Comment on above: Performed By: #### C P, PJ, IOCAL, PT, TRIG, MG, LIP, CDP #### [address] [address] Iron Caster: Prabhjot Gross MD Bilirubin, Indirect 1.5 mg/dL High 0.0-1.0 [facility] Comment on above: Performed By: #### C P, PJ, IOCAL, PT, TRIG, MG, LIP, CDP #### [address] [address] Iron Caster: Prabhjot Gross MD Bilirubin.indirect [Mass/Vol] 3.8 mg/dL High <0.3 [facility] Comment on above: Performed By: #### C P, PJ, IOCAL, PT, TRIG, MG, LIP, CDP #### [address] [address] Iron Caster: Prabhjot Gross MD Calcium [Mass/Vol] 8.6 mg/dL Normal 8.6-10.4 [facility] Comment on above: Performed By: #### C P, PJ, IOCAL, PT, TRIG, MG, LIP, CDP #### [address] [address] Iron Caster: Prabhjot Gross MD Chloride [Moles/Vol] 100 mmol/L Normal 98-107 [facility] Comment on above: Performed By: #### C P, PJ, IOCAL, PT, TRIG, MG, LIP, CDP #### [address] [address] Iron Caster: Prabhjot Gross MD CO2 [Moles/Vol] 27 mmol/L Normal 20-31 [facility] Comment on above: Performed By: #### C P, PJ, IOCAL, PT, TRIG, MG, LIP, CDP #### [address] [address] Iron Caster: Prabhjot Gross MD Glucose [Mass/Vol] 106 mg/dL High 70-99 [facility] Comment on above: Performed By: #### C P, PJ, IOCAL, PT, TRIG, MG, LIP, CDP #### [address] [address] Iron Caster: Prabhjot Gross MD Protein [Mass/Vol] 5.5 g/dL Low 6.4-8.3 [facility] Comment on above: Performed By: #### C P, PJ, IOCAL, PT, TRIG, MG, LIP, CDP #### [address] [address] Iron Caster: Prabhjot Gross MD Sodium [Moles/Vol] 137 mmol/L Normal 135-144 [facility] Comment on above: Performed By: #### C P, PJ, IOCAL, PT, TRIG, MG, LIP, CDP #### [address] [id number] Iron Caster: Prbahjot Gross MD Urea nitrogen [Mass/Vol] 10 mg/dL Normal 8-23 [facility] Comment on above: Performed By: #### C P, PJ, IOCAL, PT, TRIG, MG, LIP, CDP #### [facility] [address] [place], [place] [id number] Iron Caster: Prabhjot Gross MD Comprehensive Metabolic w/ B valeri Profile w/ Reflex to MGon 03-02-2023 Albumin [Mass/Vol] 3.1 g/dL Low 3.5 - 5.2 g/dL [facility] Albumin/Globulin [Mass ratio] 1.3 {ratio} 1.0 - 2.5 [facility] ALP [Catalytic activity/Vol] 181 U/L High 40 - 129 U/L [facility] ALT [Catalytic activity/Vol] 117 U/L High 5 - 41 U/L [facility] Anion gap [Moles/Vol] 10 mmol/L 9 - 17 mmol/L [facility] AST [Catalytic activity/Vol] 89 U/L High NINF - 40 U/L [facility] Bilirubin [Mass/Vol] 5.3 mg/dL High 0.3 - 1.2 mg/dL [facility] Bilirubin.direct [Mass/Vol] 3.8 mg/dL High NINF - 0 .3 mg/dL [facility] Bilirubin.indirect [Mass/Vol] 1.5 mg/dL High 0.0 - 1.0 mg/dL [facility] Calcium [Mass/Vol] 8.6 mg/dL 8.6 - 10.4 mg/dL [facility] Chloride [Moles/Vol] 100 mmol/L 98 - 107 mmol/L [facility] CO2 [Moles/Vol] 27 mmol/L 20 - 31 mmol/L [facility] Creatinine [Mass/Vol] 0.8 mg/dL 0.7 - 1.2 mg/d L [facility] Comment on above: ICTERIC SPECIMEN GFR/1.73 sq M.predicted MDRD (S/P/Bld) [Vol rate/Area] - PINF [facility] Comment on above: These results are not intended for use in patients <18 years of age. eGFR results are calculated without a race factor using the 2020 CKD-EPI equation. Careful clinical correlation is recommended, particularly when comparing to results calculated using previous equations. The CKD-EPI equation is less accurate in patients with extremes of muscle mass, extra-renal metabolism of creatine, excessive creatine ingestion, or following therapy that affects renal tubular secretion. Glucose [Mass/Vol] 106 mg/dL High 70 - 99 mg/dL [facility] Interpretation and review of laboratory results Abnormal [facility] Potassium [Moles/Vol] 3.5 mmol/L Low 3.7 - 5.3 mmol /L [facility] Protein [Mass/Vol] 5.5 g/dL Low 6.4 - 8.3 g/dL [facility] Sodium [Moles/Vol] 137 mmol/L 135 - 144 mmol/L [facility] Urea nitrogen [Mass/Vol] 10 mg/dL 8 - 23 mg/d L [facility] Magnesiumon 03-02-2023 Magnesium [Mass/Vol] 1.9 mg/dL Normal 1.6-2.6 [facility] Comment on above: Performed By: #### C P, PJ, IOCAL, PT, TRIG, MG, LIP, CDP #### [facility] [place] [address] Iron Caster: Prabhjot Gross MD Magnesium [Mass/Vol] 1.9 mg/dL 1.6 - 2.6 mg/dL [facility] SURGICAL PATHOLOGY REPORTon 03-02-2023 Surgical Pathology Report Path Number: [id number] -- Diagnosis -- GALLBLADDER, CHOLECYSTECTOMY:-CHRONIC CHOLECYSTITIS WITH CHOLELITHIASIS. Ale Ponce Electronically Signed Out /03/02/2023 Clinical Information Pre-Op Diagnosis: ACUTE CHOLECYSTITIS DUE TO BILIARY CALCULUS Operative Findings: GALLBLADDER AND CONTENTS Operation Performed: CHOLECYSTECTOMY LAPAROSCOPIC ROBOTIC, CHOLANGIOGRAM cd Source of Specimen A: GALLBLADDER Gross Description YAEL CONTRERAS, GALLBLADDER AND CONTENTS Received in formalin is a 6.5 x 4.2 x 2.5 cm intact gallbladder with a 1.8 cm long x 0.5 cm in diameter cystic duct. The serosa is fatty, and the liver bed is coarse delong-brown. The wall is 0.1 cm in thickness, and the lumen contains approximately 15 cc of tenacious green bile with gritty brown-black calculi flecks. The mucosa is delong and velvety. Cystic duct margin and sections of gallbladder mucosa 1cs. tm Microscopic Description Microscopic examination performed. Processing Lab: [address] [id number] Interpretation Performed at [address] [id number] SURGICAL PATHOLOGY CONSULTATION Patient Name: YAEL CONTRERAS [facility] Rec: [id number] [facility] ANATOMIC PATHOLOGY [address] [place] [address]. [place], [place] [address] [facility] Basic Metab w/rfx MGon 03-01 Creatinine [Mass/Vol] 0.8 mg/dL Normal 0.7-1.2 [facility] Comment on above: Result Comment: ICTE FORTINO SPECIMEN Performed By: #### C P, PJ, IOCAL, PT, TRIG, MG, LIP, CDP #### [facility] [address] [place] [address] Iron Caster: Prabhjot Gross MD GFR/1.73 sq M.predicted umer g non-blacks MDRD (S/P/Bld) [Vol rate/Area] mL/min/{1.73_m2} Normal >60 [facility] Comment on above: Result Comment: These results are not intended for use in patients <18 years of age. eGFR results are calculated without a race factor using the 2020 CKD-EPI equation. Careful clinical correlation is recommended, particularly when comparing to results calculated using previous equations. The CKD-EPI equation is less accurate in patients with extremes of muscle mass, extra-renal metabolism of creatine, excessive creatine ingestion, or following therapy that affects renal tubular secretion. Performed By: #### C P, PJ, IOCAL, PT, TRIG, MG, LIP, CDP #### [address] [address] Iron Caster: Prabhjot Gross MD Anion gap [Moles/Vol] 9 mmol/L Normal 9-17 [facility] Comment on above: Performed By: #### C P, PJ, IOCAL, PT, TRIG, MG, LIP, CDP #### [address] [address] Iron Caster: Prabhjot Gross MD Calcium [Mass/Vol] 8.8 mg/dL Normal 8.6-10.4 [facility] Comment on above: Performed By: #### C P, PJ, IOCAL, PT, TRIG, MG, LIP, CDP #### [address] [address] Iron Caster: Prabhjot Gross MD Chloride [Moles/Vol] 101 mmol/L Normal 98-107 [facility] Comment on above: Performed By: #### C P, PJ, IOCAL, PT, TRIG, MG, LIP, CDP #### [address] [address] Iron Caster: Prabhjot Gross MD CO2 [Moles/Vol] 26 mmol/L Normal 20-31 [facility] Comment on above: Performed By: #### C P, PJ, IOCAL, PT, TRIG, MG, LIP, CDP #### [address] [address] Iron Caster: Prabhjot Gross MD Glucose [Mass/Vol] 111 mg/dL High 70-99 [facility] Comment on above: Performed By: #### C P, PJ, IOCAL, PT, TRIG, MG, LIP, CDP #### [address] [address] Iron Caster: Prabhjot Gross MD Potassium [Moles/Vol] 4.0 mmol/L Normal 3.7-5.3 [facility] Comment on above: Performed By: #### C P, PJ, IOCAL, PT, TRIG, MG, LIP, CDP #### [facility] [place] [address] Iron Caster: Prabhjot Gross MD Sodium [Moles/Vol] 136 mmol/L Normal 135-144 [facility] Comment on above: Performed By: #### C P, PJ, IOCAL, PT, TRIG, MG, LIP, CDP #### [facility] [place], [place] [id number] Iron Caster: Prabhjot Gross MD Urea nitrogen [Mass/Vol] 10 mg/dL Normal 8-23 [facility] Comment on above: Performed By: #### C P, PJ, IOCAL, PT, TRIG, MG, LIP, CDP #### [employer] [address] [place] [address] Iron Caster: Prabhjot Gross MD Basic Metabolic Panel w/ Ref aurelio to MGon 03-01-2023 Anion gap [Moles/Vol] 9 mmol/L 9 - 17 mmol/L [facility] Calcium [Mass/Vol] 8.8 mg/dL 8.6 - 10.4 mg/dL [facility] Chloride [Moles/Vol] 101 mmol/L 98 - 107 mmol/L [facility] CO2 [Moles/Vol] 26 mmol/L 20 - 31 mmol/L [facility] Creatinine [Mass/Vol] 0.8 mg/dL 0.7 - 1.2 mg/d L [facility] Comment on above: ICTERIC SPECIMEN GFR/1.73 sq M.predicted MDRD (S/P/Bld) [Vol rate/Area] - PINF [facility] Comment on above: These results are not intended for use in patients <18 years of age. eGFR results are calculated without a race factor using the 2020 CKD-EPI equation. Careful clinical correlation is recommended, particularly when comparing to results calculated using previous equations. The CKD-EPI equation is less accurate in patients with extremes of muscle mass, extra-renal metabolism of creatine, excessive creatine ingestion, or following therapy that affects renal tubular secretion. Glucose [Mass/Vol] 111 mg/dL High 70 - 99 mg/dL [facility] Interpretation and review of laboratory results Abnormal [facility] Potassium [Moles/Vol] 4.0 mmol/L 3.7 - 5.3 mmol /L [facility] Sodium [Moles/Vol] 136 mmol/L 135 - 144 mmol/L [facility] Urea nitrogen [Mass/Vol] 10 mg/dL 8 - 23 mg/d L [facility] CBC with Auto Differentialon 03-01-2023 Basophils (Bld) [#/Vol] [facility] Basophils/100 WBC (Bld) 0 % 0 - 2 % [facility] Eosinophils (Bld) [#/Vol] [facility] Eosinophils/100 WBC (Bld) 0 % Low 1 - 4 % [facility] Erythrocyte distribution width (RBC) [Ratio] 13.6 % 11.8 - 14.4 % [facility] Hematocrit (Bld) [Volume fraction] 39.3 % Low 40.7 - 50.3 % [facility] Hemoglobin (Bld) [Mass/Vol] 13.4 g/dL 13.0 - 17.0 g/dL [facility] Immature granulocytes (Bld) [#/Vol] 0.05 10*3/uL [facility] Immature granulocytes/100 WBC (Bld) 1 % High 0 [facility] Interpretation and review of laboratory results Abnormal [facility] Lymphocytes/100 WBC (Bld) 13 % Low 24 - 43 % [facility] Lymphocytes/100 WBC (Bld) 1.04 % Low [facility] MCH (RBC) [Entitic mass] 30.9 pg 25.2 - 33.5 pg [facility] MCHC (RBC) [Mass/Vol] 34.1 g/dL 28.4 - 34.8 g/dL [facility] MCV (RBC) [Entitic vol] 90.6 fL 82.6 - 102.9 fL [facility] Monocytes/100 WBC (Bld) 10 % 3 - 12 % [facility] Monocytes/100 WBC (Bld) 0.81 % [facility] Neutrophils/100 WBC (Bld) 77 % High 36 - 65 % [facility] Nucleated RBC/100 WBC (Bld) [Ratio] 0.0 % 0.0 per 100 WBC [facility] Platelet, Fluorescence 130 Low [facility] Platelets (Bld) [#/Vol] See Reflexed IPF Result [facility] Platelets reticulated/100 platelets Auto (Bld) 4.7 % 1.1 - 10.3 % [facility] RBC (Bld) [#/Vol] 4.34 10*6/uL 4.21 - 5.7 7 m/uL [facility] Segmented neutrophils/100 WBC (Bld) 6.35 % [facility] WBC other (Bld) [#/Vol] 8.3 [facility] CBC with Diffon 03-01-2023 Platelet, Fluoresc. 130 k/uL Low 138-453 [facility] Comment on above: Performed By: #### C P, PJ, IOCAL, PT, TRIG, MG, LIP, CDP #### [facility] [address] [place] [address] Iron Caster: Prabhjot Gross MD PLT, Immature Fract. 4.7 % Normal 1.1-10.3 [facility] Comment on above: Performed By: #### C P, PJ, IOCAL, PT, TRIG, MG, LIP, CDP #### [facility] [address] [place] [address] Iron Caster: Prabhjot Gross MD Abs. Basophil <0.03 Normal 0.00-0.20 [facility] Comment on above: Performed By: #### C P, PJ, IOCAL, PT, TRIG, MG, LIP, CDP #### [facility] [address] [place] [address] Iron Caster: Prabhjot Gross MD Abs. Eosinophil <0.03 Normal 0.00-0.44 [facility] Comment on above: Performed By: #### C P, PJ, IOCAL, PT, TRIG, MG, LIP, CDP #### [address] [address] Iron Caster: Prabhjot Gross MD Abs.Imm.Granulocyte 0.05 k/uL Normal 0.00-0.30 [facility] Comment on above: Performed By: #### C P, PJ, IOCAL, PT, TRIG, MG, LIP, CDP #### [place] [address] Iron Caster: Prabhjot Gross MD Abs.Neutrophil (Seg) 6.35 k/uL Normal 1.50-8.10 [facility] Comment on above: Performed By: #### C P, PJ, IOCAL, PT, TRIG, MG, LIP, CDP #### [place] [address] Iron Caster: Prabhjot Gross MD Basophils/100 WBC (Bld) 0 % Normal 0-2 M [facility] Comment on above: Performed By: #### C P, PJ, IOCAL, PT, TRIG, MG, LIP, CDP #### [place] [address] Iron Caster: Prabhjot Gross MD Eosinophils/100 WBC (Bld) 0 % Low 1-4 [facility] Comment on above: Performed By: #### C P, PJ, IOCAL, PT, TRIG, MG, LIP, CDP #### [address] [address] Iron Caster: Prabhjot Gross MD Erythrocyte distribution wid th (RBC) [Ratio] 13.6 % Normal 11.8-14.4 [facility] Comment on above: Performed By: #### C P, PJ, IOCAL, PT, TRIG, MG, LIP, CDP #### [address] [address] Iron Caster: Prabhjot Gross MD Hematocrit (Bld) [Volume fraction] 39.3 % Low 4 0.7-50.3 [facility] Comment on above: Performed By: #### C P, PJ, IOCAL, PT, TRIG, MG, LIP, CDP #### [place] [address] Iron Caster: Prabhjot Gross MD Hemoglobin (Bld) [Mass/Vol] 13.4 g/dL Normal 13.0-17. 0 [facility] Comment on above: Performed By: #### C P, PJ, IOCAL, PT, TRIG, MG, LIP, CDP #### [place] [address] Iron Caster: Prabhjot Gross MD Immature granulocytes/100 WBC (Bld) 1 % High 0 [facility] Comment on above: Performed By: #### C P, PJ, IOCAL, PT, TRIG, MG, LIP, CDP #### [place] [address] Iron Caster: Prabhjot Gross MD Lymphocytes (Bld) [#/Vol] 1.04 10*3/uL Low 1.10-3.7 0 [facility] Comment on above: Performed By: #### C P, PJ, IOCAL, PT, TRIG, MG, LIP, CDP #### [address] [address] Iron Caster: Prabhjot Gross MD Lymphocytes/100 WBC (Bld) 13 % Low 24-43 [facility] Comment on above: Performed By: #### C P, PJ, IOCAL, PT, TRIG, MG, LIP, CDP #### [place] [address] Iron Caster: Prabhjot Gross MD MCH (RBC) [Entitic mass] 30.9 pg Normal 25.2-33.5 [facility] Comment on above: Performed By: #### C P, PJ, IOCAL, PT, TRIG, MG, LIP, CDP #### [address] [address] Iron Caster: Prabhjot Gross MD MCHC (RBC) [Mass/Vol] 34.1 g/dL Normal 28.4-34.8 [facility] Comment on above: Performed By: #### C P, PJ, IOCAL, PT, TRIG, MG, LIP, CDP #### [address] [address] Iron Caster: Prabhjot Gross MD MCV (RBC) [Entitic vol] 90.6 fL Normal 82.6-102.9 [facility] Comment on above: Performed By: #### C P, PJ, IOCAL, PT, TRIG, MG, LIP, CDP #### [address] [address] Iron Caster: Prabhjot Gross MD Monocytes (Bld) [#/Vol] 0.81 10*3/uL Normal 0.10-1.20 [facility] Comment on above: Performed By: #### C P, PJ, IOCAL, PT, TRIG, MG, LIP, CDP #### [place] [address] Iron Caster: Prabhjot Gross MD Monocytes/100 WBC (Bld) 10 % Normal 3-12 [facility] Comment on above: Performed By: #### C P, PJ, IOCAL, PT, TRIG, MG, LIP, CDP #### [address] [address] Iron Caster: Prabhjot Gross MD Neutrophil (Seg) 77 % High 36-65 [facility] Comment on above: Performed By: #### C P, PJ, IOCAL, PT, TRIG, MG, LIP, CDP #### [facility] [address] [place] [address] Iron Caster: Prabhjot Gross MD NRBC Automated 0.0 per 100 WBC Normal 0.0 [facility] Comment on above: Performed By: #### C P, PJ, IOCAL, PT, TRIG, MG, LIP, CDP #### [facility] [address] [place] [address] Iron Caster: Prabhjot Gross MD Platelet Count See Reflexed IPF Result Normal 138-453 [facility] Comment on above: Performed By: #### C P, PJ, IOCAL, PT, TRIG, MG, LIP, CDP #### [facility] [address] [place] [address] Iron Caster: Prabhjot Gross MD RBC (Bld) [#/Vol] 4.34 10*6/uL Normal 4.21-5.77 [facility] Comment on above: Performed By: #### C P, PJ, IOCAL, PT, TRIG, MG, LIP, CDP #### [facility] [address] [place] [address] Iron Caster: Prabhjot Gross MD WBC (Bld) [#/Vol] 8.3 10*3/uL Normal 3.5-11.3 [facility] Comment on above: Performed By: #### C P, PJ, IOCAL, PT, TRIG, MG, LIP, CDP #### [facility] [address] [place] [address] Iron Caster: Prabhjot Gross MD Hepatic Function Panelon Albumin [Mass/Vol] 3.3 g/dL Low 3.5 - 5.2 g/dL [facility] Albumin/Globulin [Mass ratio] 1.3 {ratio} 1.0 - 2.5 [facility] ALP [Catalytic activity/Vol] 207 U/L High 40 - 12 9 U/L [facility] ALT [Catalytic activity/Vol] 145 U/L High 5 - 41 U/L [facility] AST [Catalytic activity/Vol] 139 U/L High NINF - 40 U/L [facility] Bilirubin [Mass/Vol] 5.7 mg/dL High 0.3 - 1.2 mg/dL [facility] Bilirubin.direct [Mass/Vol] 4.1 mg/dL High NINF - 0 .3 mg/dL [facility] Bilirubin.indirect [Mass/Vol] 1.6 mg/dL High 0.0 - 1.0 mg/dL [facility] Interpretation and review of laboratory results Abnormal [facility] Protein [Mass/Vol] 5.8 g/dL Low 6.4 - 8.3 g/dL [facility] Lipaseon 03-01-2023 Lipase [Catalytic activity/Vol] 28 U/L Normal 13-6 0 [facility] Comment on above: Performed By: #### C P, PJ, IOCAL, PT, TRIG, MG, LIP, CDP #### [employer] [address] [place] [phone] Iron Caster: Prabhjot Gross MD Lipase [Catalytic activity/Vol] 28 U/L 13 - 60 U/L [facility] Liver Profileon 03-01-2023 Albumin [Mass/Vol] 3.3 g/dL Low 3.5-5.2 [facility] Comment on above: Performed By: #### C P, PJ, IOCAL, PT, TRIG, MG, LIP, CDP #### [facility] [facility] [place] [address] Iron Caster: Prabhjot Gross MD Albumin/Glob Ratio 1.3 Normal 1.0-2.5 [facility] Comment on above: Performed By: #### C P, PJ, IOCAL, PT, TRIG, MG, LIP, CDP #### [employer] [address] [place] [address] Iron Caster: Prabhjot Gross MD Alkaline Phos 207 U/L High 40-129 [facility] Comment on above: Performed By: #### C P, PJ, IOCAL, PT, TRIG, MG, LIP, CDP #### [address] [address] Iron Caster: Prabhjot Gross MD ALT [Catalytic activity/Vol] 145 U/L High 5-41 [facility] Comment on above: Performed By: #### C P, PJ, IOCAL, PT, TRIG, MG, LIP, CDP #### [address] [address] Iron Caster: Prabhjot Gross MD AST [Catalytic activity/Vol] 139 U/L High <40 [facility] Comment on above: Performed By: #### C P, PJ, IOCAL, PT, TRIG, MG, LIP, CDP #### [address] [address] Iron Caster: Prabhjot Gross MD Bilirubin [Mass/Vol] 5.7 mg/dL High 0.3-1.2 [facility] Comment on above: Performed By: #### C P, PJ, IOCAL, PT, TRIG, MG, LIP, CDP #### [address] [address] Iron Caster: Prabhjot Gross MD Bilirubin, Indirect 1.6 mg/dL High 0.0-1.0 [facility] Comment on above: Performed By: #### C P, PJ, IOCAL, PT, TRIG, MG, LIP, CDP #### [address] [address] Iron Caster: Prabhjot Gross MD Bilirubin.indirect [Mass/Vol] 4.1 mg/dL High <0.3 [facility] Comment on above: Performed By: #### C P, PJ, IOCAL, PT, TRIG, MG, LIP, CDP #### [facility] [address] [place], [place] [id number] Iron Caster: Prabhjot Gross MD Protein [Mass/Vol] 5.8 g/dL Low 6.4-8.3 [facility] Comment on above: Performed By: #### C P, PJ, IOCAL, PT, TRIG, MG, LIP, CDP #### [facility] [address] [place], [place] [phone] Iron Caster: Prabhjot Gross MD CBC with Auto Differentialon 02-28-2023 Basophils (Bld) [#/Vol] 0.03 10*3/uL [facility] Basophils/100 WBC (Bld) 1 % 0 - 2 % [facility] Eosinophils (Bld) [#/Vol] 0.13 10*3/uL [facility] Eosinophils/100 WBC (Bld) 3 % 1 - 4 % [facility] Erythrocyte distribution width (RBC) [Ratio] 13.0 % 11.8 - 14.4 % [facility] Hematocrit (Bld) [Volume fraction] 40.2 % Low 40.7 - 50.3 % [facility] Hemoglobin (Bld) [Mass/Vol] 14.2 g/dL 13.0 - 17.0 g/dL [facility] Immature granulocytes (Bld) [#/Vol] 0.05 10*3/uL [facility] Immature granulocytes/100 WBC (Bld) 1 % High 0 [facility] Interpretation and review of laboratory results Abnormal [facility] Lymphocytes/100 WBC (Bld) 33 % 24 - 43 % [facility] Lymphocytes/100 WBC (Bld) 1.53 % [facility] MCH (RBC) [Entitic mass] 30.3 pg 25.2 - 33.5 pg [facility] MCHC (RBC) [Mass/Vol] 35.3 g/dL High 28.4 - 34.8 g/dL [facility] MCV (RBC) [Entitic vol] 85.7 fL 82.6 - 102.9 fL [facility] Monocytes/100 WBC (Bld) 9 % 3 - 12 % [facility] Monocytes/100 WBC (Bld) 0.40 % [facility] Neutrophils/100 WBC (Bld) 54 % 36 - 65 % [facility] Nucleated RBC/100 WBC (Bld) [Ratio] 0.0 % 0.0 per 100 WBC [facility] Platelet, Fluorescence 139 [facility] Platelets (Bld) [#/Vol] See Reflexed IPF Result [facility] Platelets reticulated/100 platelets Auto (Bld) 4.9 % 1.1 - 10.3 % [facility] RBC (Bld) [#/Vol] 4.69 10*6/uL 4.21 - 5.7 7 m/uL [facility] Segmented neutrophils/100 WBC (Bld) 2.48 % [facility] WBC other (Bld) [#/Vol] 4.6 [facility] CBC with Diffon 02-28-2023 Platelet, Fluoresc. 139 k/uL Normal 138-453 [facility] Comment on above: Performed By: #### C P, PJ, IOCAL, PT, TRIG, MG, LIP, CDP #### [facility] [address] [place] [address] Iron Caster: Prabhjot Gross MD PLT, Immature Fract. 4.9 % Normal 1.1-10.3 [facility] Comment on above: Performed By: #### C P, PJ, IOCAL, PT, TRIG, MG, LIP, CDP #### [employer] [address] [place] [address] Iron Caster: Prabhjot Gross MD Abs. Basophil 0.03 k/uL Normal 0.00-0.20 [facility] Comment on above: Performed By: #### C P, PJ, IOCAL, PT, TRIG, MG, LIP, CDP #### [employer] [facility] [address] [place] [address] Iron Caster: Prabhjot Gross MD Abs.Imm.Granulocyte 0.05 k/uL Normal 0.00-0.30 [facility] Comment on above: Performed By: #### C P, PJ, IOCAL, PT, TRIG, MG, LIP, CDP #### [place] [address] Iron Caster: Prabhjot Gross MD Abs.Neutrophil (Seg) 2.48 k/uL Normal 1.50-8.10 [facility] Comment on above: Performed By: #### C P, PJ, IOCAL, PT, TRIG, MG, LIP, CDP #### [place] [address] Iron Caster: Prabhjot Gross MD Basophils/100 WBC (Bld) 1 % Normal 0-2 [facility] Comment on above: Performed By: #### C P, PJ, IOCAL, PT, TRIG, MG, LIP, CDP #### [place] [address] Iron Caster: Prabhjot Gross MD Eosinophils (Bld) [#/Vol] 0.13 10*3/uL Normal 0.00-0.4 4 [facility] Comment on above: Performed By: #### C P, PJ, IOCAL, PT, TRIG, MG, LIP, CDP #### [address] [address] Iron Caster: Prabhjot Gross MD Eosinophils/100 WBC (Bld) 3 % Normal 1-4 [facility] Comment on above: Performed By: #### C P, PJ, IOCAL, PT, TRIG, MG, LIP, CDP #### [address] [address] Iron Caster: Prabhjot Gross MD Erythrocyte distribution wid th (RBC) [Ratio] 13.0 % Normal 11.8-14.4 [facility] Comment on above: Performed By: #### C P, PJ, IOCAL, PT, TRIG, MG, LIP, CDP #### [place] [address] Iron Caster: Prabhjot Gross MD Hematocrit (Bld) [Volume fraction] 40.2 % Low 4 0.7-50.3 [facility] Comment on above: Performed By: #### C P, PJ, IOCAL, PT, TRIG, MG, LIP, CDP #### [place] [address] Iron Caster: Prabhjot Gross MD Hemoglobin (Bld) [Mass/Vol] 14.2 g/dL Normal 13.0-17. 0 [facility] Comment on above: Performed By: #### C P, PJ, IOCAL, PT, TRIG, MG, LIP, CDP #### [place] [address] Iron Caster: Prabhjot Gross MD Immature granulocytes/100 WBC (Bld) 1 % High 0 [facility] Comment on above: Performed By: #### C P, PJ, IOCAL, PT, TRIG, MG, LIP, CDP #### [place] [address] Iron Caster: Prabhjot Gross MD Lymphocytes (Bld) [#/Vol] 1.53 10*3/uL Normal 1.10-3.7 0 [facility] Comment on above: Performed By: #### C P, PJ, IOCAL, PT, TRIG, MG, LIP, CDP #### [place] [address] Iron Caster: Prabhjot Gross MD Lymphocytes/100 WBC (Bld) 33 % Normal 24-43 [facility] Comment on above: Performed By: #### C P, PJ, IOCAL, PT, TRIG, MG, LIP, CDP #### [address] [address] Iron Caster: Prabhjot Gross MD MCH (RBC) [Entitic mass] 30.3 pg Normal 25.2-33.5 [facility] Comment on above: Performed By: #### C P, PJ, IOCAL, PT, TRIG, MG, LIP, CDP #### [address] [address] Iron Caster: Prabhjot Gross MD MCHC (RBC) [Mass/Vol] 35.3 g/dL High 28.4-34.8 [facility] Comment on above: Performed By: #### C P, PJ, IOCAL, PT, TRIG, MG, LIP, CDP #### [address] [address] Iron Caster: Prabhjot Gross MD MCV (RBC) [Entitic vol] 85.7 fL Normal 82.6-102.9 [facility] Comment on above: Performed By: #### C P, PJ, IOCAL, PT, TRIG, MG, LIP, CDP #### [place] [address] Iron Caster: Prabhjot Gross MD Monocytes (Bld) [#/Vol] 0.40 10*3/uL Normal 0.10-1.20 [facility] Comment on above: Performed By: #### C P, PJ, IOCAL, PT, TRIG, MG, LIP, CDP #### [address] [address] Iron Caster: Prabhjot Gross MD Monocytes/100 WBC (Bld) 9 % Normal 3-12 M [facility] Comment on above: Performed By: #### C P, PJ, IOCAL, PT, TRIG, MG, LIP, CDP #### [address] [address] Iron Caster: Prabhjot Gross MD Neutrophil (Seg) 54 % Normal 36-65 [facility] Comment on above: Performed By: #### C P, PJ, IOCAL, PT, TRIG, MG, LIP, CDP #### [address] [address] Iron Caster: Prabhjot Gross MD NRBC Automated 0.0 per 100 WBC Normal 0.0 [facility] Comment on above: Performed By: #### C P, PJ, IOCAL, PT, TRIG, MG, LIP, CDP #### [address] [address] Iron Caster: Prabhjot Gross MD Platelet Count See Reflexed IPF Result Normal 138-453 [facility] Comment on above: Performed By: #### C P, PJ, IOCAL, PT, TRIG, MG, LIP, CDP #### [address] [address] Iron Caster: Prabhjot Gross MD RBC (Bld) [#/Vol] 4.69 10*6/uL Normal 4.21-5.77 [facility] [facility] Comment on above: Performed By: #### C P, PJ, IOCAL, PT, TRIG, MG, LIP, CDP #### [address] [address] Iron Caster: Prabhjot Gross MD WBC (Bld) [#/Vol] 4.6 10*3/uL Normal 3.5-11.3 [facility] Comment on above: Performed By: #### C P, PJ, IOCAL, PT, TRIG, MG, LIP, CDP #### [address] [address] Iron Caster: Prabhjot Gross MD Comp Met+Bili/rfx MGon 02-28 Creatinine [Mass/Vol] 0.7 mg/dL Normal 0.70-1.20 [facility] Comment on above: Result Comment: ICTE FORTINO SPECIMEN Performed By: #### C P, PJ, IOCAL, PT, TRIG, MG, LIP, CDP #### [address] [id number] Iron Caster: Prabhjot Gross MD GFR/1.73 sq M.predicted umer g non-blacks MDRD (S/P/Bld) [Vol rate/Area] mL/min/{1.73_m2} Normal >60 [facility] Comment on above: Result Comment: These results are not intended for use in patients <18 years of age. eGFR results are calculated without a race factor using the 2020 CKD-EPI equation. Careful clinical correlation is recommended, particularly when comparing to results calculated using previous equations. The CKD-EPI equation is less accurate in patients with extremes of muscle mass, extra-renal metabolism of creatine, excessive creatine ingestion, or following therapy that affects renal tubular secretion. Performed By: #### C P, PJ, IOCAL, PT, TRIG, MG, LIP, CDP #### [place] [address] Iron Caster: Prabhjot Gross MD Albumin [Mass/Vol] 3.4 g/dL Low 3.5-5.2 [facility] Comment on above: Performed By: #### C P, PJ, IOCAL, PT, TRIG, MG, LIP, CDP #### [place] [address] Iron Caster: Prabhjot Gross MD Albumin/Glob Ratio 1.3 Normal 1.0-2.5 [facility] Comment on above: Performed By: #### C P, PJ, IOCAL, PT, TRIG, MG, LIP, CDP #### [address] [phone] Iron Caster: Prabhjot Gross MD Alkaline Phos 228 U/L High 40-129 [facility] Comment on above: Performed By: #### C P, PJ, IOCAL, PT, TRIG, MG, LIP, CDP #### [address] [place] [address] Iron Caster: Prabhjot Gross MD ALT [Catalytic activity/Vol] 80 U/L High 5-41 [facility] Comment on above: Performed By: #### C P, PJ, IOCAL, PT, TRIG, MG, LIP, CDP #### [address] [address] Iron Caster: Prabhjot Gross MD Anion gap [Moles/Vol] 12 mmol/L Normal 9-17 [facility] Comment on above: Performed By: #### C P, PJ, IOCAL, PT, TRIG, MG, LIP, CDP #### [address] [address] Iron Caster: Prabhjot Gross MD AST [Catalytic activity/Vol] 64 U/L High <40 [facility] Comment on above: Performed By: #### C P, PJ, IOCAL, PT, TRIG, MG, LIP, CDP #### [address] [address] Iron Caster: Prabhjot Gross MD Bilirubin [Mass/Vol] 5.4 mg/dL High 0.3-1.2 [facility] Comment on above: Performed By: #### C P, PJ, IOCAL, PT, TRIG, MG, LIP, CDP #### [address] [address] Iron Caster: Prabhjot Gross MD Bilirubin, Indirect 1.6 mg/dL High 0.0-1.0 [facility] Comment on above: Performed By: #### C P, PJ, IOCAL, PT, TRIG, MG, LIP, CDP #### [address] [address] Iron Caster: Prabhjot Gross MD Bilirubin.indirect [Mass/Vol] 3.8 mg/dL High <0.3 [facility] Comment on above: Performed By: #### C P, PJ, IOCAL, PT, TRIG, MG, LIP, CDP #### [address] [address] Iron Caster: Prabhjot Gross MD Calcium [Mass/Vol] 9.0 mg/dL Normal 8.6-10.4 [facility] Comment on above: Performed By: #### C P, PJ, IOCAL, PT, TRIG, MG, LIP, CDP #### [address] [address] Iron Caster: Prabhjot Gross MD Chloride [Moles/Vol] 103 mmol/L Normal 98-107 [facility] Comment on above: Performed By: #### C P, PJ, IOCAL, PT, TRIG, MG, LIP, CDP #### [address] [address] Iron Caster: Prabhjot Gross MD CO2 [Moles/Vol] 21 mmol/L Normal 20-31 [facility] Comment on above: Performed By: #### C P, PJ, IOCAL, PT, TRIG, MG, LIP, CDP #### [address] [address] Iron Caster: Prabhjot Gross MD Glucose [Mass/Vol] 100 mg/dL High 70-99 [facility] Comment on above: Performed By: #### C P, PJ, IOCAL, PT, TRIG, MG, LIP, CDP #### [address] [address] Iron Caster: Prabhjot Gross MD Potassium [Moles/Vol] 3.9 mmol/L Normal 3.7-5.3 [facility] Comment on above: Performed By: #### C P, PJ, IOCAL, PT, TRIG, MG, LIP, CDP #### [address] [address] Iron Caster: Prabhjot Gross MD Protein [Mass/Vol] 6.1 g/dL Low 6.4-8.3 [facility] Comment on above: Performed By: #### C P, PJ, IOCAL, PT, TRIG, MG, LIP, CDP #### [facility] [address] [place], [place] [phone] Iron Caster: Prabhjot Gross MD Sodium [Moles/Vol] 136 mmol/L Normal 135-144 [facility] Comment on above: Performed By: #### C P, PJ, IOCAL, PT, TRIG, MG, LIP, CDP #### [facility] [address], [place] [id number] Iron Caster: Prabhjot Gross MD Urea nitrogen [Mass/Vol] 9 mg/dL Normal 8-23 [facility] Comment on above: Performed By: #### C P, PJ, IOCAL, PT, TRIG, MG, LIP, CDP #### [facility] [address] [place], [place] [id number] Iron Caster: Prabhjot Gross MD Comprehensive Metabolic w/ B valeri Profile w/ Reflex to on 02-28-2023 Albumin [Mass/Vol] 3.4 g/dL Low 3.5 - 5.2 g/dL [facility] Albumin/Globulin [Mass ratio] 1.3 {ratio} 1.0 - 2.5 [facility] [employer] ALP [Catalytic activity/Vol] 228 U/L High 40 - 129 U/L [facility] ALT [Catalytic activity/Vol] 80 U/L High 5 - 41 U/L [facility] Anion gap [Moles/Vol] 12 mmol/L 9 - 17 mmol/L [facility] [employer] AST [Catalytic activity/Vol] 64 U/L High NINF - 40 U/L [facility] [employer] Bilirubin [Mass/Vol] 5.4 mg/dL High 0.3 - 1.2 mg/dL [facility] Bilirubin.direct [Mass/Vol] 3.8 mg/dL High NINF - 0 .3 mg/dL [facility] Bilirubin.indirect [Mass/Vol] 1.6 mg/dL High 0.0 - 1.0 mg/dL [facility] Calcium [Mass/Vol] 9.0 mg/dL 8.6 - 10.4 mg/dL [facility] Chloride [Moles/Vol] 103 mmol/L 98 - 107 mmol/L [facility] CO2 [Moles/Vol] 21 mmol/L 20 - 31 mmol/L [facility] Creatinine [Mass/Vol] 0.7 mg/dL 0.70 - 1.20 mg /dL [facility] Comment on above: ICTERIC SPECIMEN GFR/1.73 sq M.predicted MDRD (S/P/Bld) [Vol rate/Area] - PINF [facility] Comment on above: These results are not intended for use in patients <18 years of age. eGFR results are calculated without a race factor using the 2020 CKD-EPI equation. Careful clinical correlation is recommended, particularly when comparing to results calculated using previous equations. The CKD-EPI equation is less accurate in patients with extremes of muscle mass, extra-renal metabolism of creatine, excessive creatine ingestion, or following therapy that affects renal tubular secretion. Glucose [Mass/Vol] 100 mg/dL High 70 - 99 mg/dL [facility] Interpretation and review of laboratory results Abnormal [facility] Potassium [Moles/Vol] 3.9 mmol/L 3.7 - 5.3 mmol /L [facility] Protein [Mass/Vol] 6.1 g/dL Low 6.4 - 8.3 g/dL [facility] Sodium [Moles/Vol] 136 mmol/L 135 - 144 mmol/L [facility] Urea nitrogen [Mass/Vol] 9 mg/dL 8 - 23 mg/d L [facility] FLUORO FOR SURGICAL PROCEDUR ESon 02-28-2023 FLUORO FOR SURGICAL PROCEDURES Radiology exam is complete. No Radiologist dictation. Please follow up with ordering provider. Final result Normal [facility] FLUORO FOR SURGICAL PROCEDURES Radiology exam is complete. No Radiologist dictation. Please follow up with ordering provider. Final result Normal [facility] Radiology exam is complete. No Radiologist dictation. Please follow up with ordering provider. [facility] RIS CONSOLIDATE D Radiology exam is complete. No Radiologist dictation. Please follow up with ordering provider. [facility] D Surgical Pathologyon 023 Surgical Pathology (NOTE) Path Number: [id number] -- Diagnosis -- GALLBLADDER, CHOLECYSTECTOMY:-CHRONIC CHOLECYSTITIS WITH CHOLELITHIASIS. Ale Ponce Electronically Signed Out ag/03/02/2023 Clinical Information Pre-Op Diagnosis: ACUTE CHOLECYSTITIS DUE TO BILIARY CALCULUS Operative Findings: GALLBLADDER AND CONTENTS Operation Performed: CHOLECYSTECTOMY LAPAROSCOPIC ROBOTIC, CHOLANGIOGRAM cd Source of Specimen A: GALLBLADDER Gross Description YAEL CONTRERAS GALLBLADDER AND CONTENTS Received in formalin is a 6.5 x 4.2 x 2.5 cm intact gallbladder with a 1.8 cm long x 0.5 cm in diameter cystic duct. The serosa is fatty, and the liver bed is coarse delong-brown. The wall is 0.1 cm in thickness, and the lumen contains approximately 15 cc of tenacious green bile with gritty brown-black calculi flecks. The mucosa is delong and velvety. Cystic duct margin and sections of gallbladder mucosa 1cs. tm Microscopic Description Microscopic examination performed. Processing Lab: [address] [id number] Interpretation Performed at [address] [phone] SURGICAL PATHOLOGY CONSULTATION Patient Name: YAEL CONTRERAS [facility] Rec: [id number] [employer] [facility] ANATOMIC PATHOLOGY [address] [place] [phone] Normal [facility] Comment on above: Performed By: #### C P, PJ, IOCAL, PT, TRIG, MG, LIP, CDP #### [employer] [address] [place] [id number] Iron Caster: Prabhjot Gross MD CBC with Auto Differentialon 02-27-2023 Basophils (Bld) [#/Vol] B ON [employer] Basophils/100 WBC (Bld) 0 % 0 - 2 % B ON [facility] Eosinophils (Bld) [#/Vol] 0.10 10*3/uL [facility] Eosinophils/100 WBC (Bld) 3 % 1 - 4 % [facility] Erythrocyte distribution width (RBC) [Ratio] 13.1 % 11.8 - 14.4 % [facility] Hematocrit (Bld) [Volume fraction] 36.3 % Low 40.7 - 50.3 % [facility] Hemoglobin (Bld) [Mass/Vol] 12.7 g/dL Low 13.0 - 17.0 g/dL [facility] Immature granulocytes (Bld) [#/Vol] 0.03 10*3/uL [facility] Immature granulocytes/100 WBC (Bld) 1 % High 0 [facility] Interpretation and review of laboratory results Abnormal [facility] Lymphocytes/100 WBC (Bld) 28 % 24 - 43 % [facility] Lymphocytes/100 WBC (Bld) 1.08 % Low [facility] MCH (RBC) [Entitic mass] 30.8 pg 25.2 - 33.5 pg [facility] MCHC (RBC) [Mass/Vol] 35.0 g/dL High 28.4 - 34.8 g/dL [facility] MCV (RBC) [Entitic vol] 88.1 fL 82.6 - 102.9 fL [facility] Monocytes/100 WBC (Bld) 11 % 3 - 12 % B ON [facility] Monocytes/100 WBC (Bld) 0.42 % B ON [facility] Neutrophils/100 WBC (Bld) 58 % 36 - 65 % [facility] Nucleated RBC/100 WBC (Bld) [Ratio] 0.0 % 0.0 per 100 WBC [facility] Platelet, Fluorescence 121 Low [facility] Platelets (Bld) [#/Vol] See Reflexed IPF Result [facility] Platelets reticulated/100 platelets Auto (Bld) 4.0 % 1.1 - 10.3 % [facility] RBC (Bld) [#/Vol] 4.12 10*6/uL Low 4.21 - 5.7 7 m/uL [facility] Segmented neutrophils/100 WBC (Bld) 2.29 % [facility] WBC other (Bld) [#/Vol] 3.9 B ON [facility] CBC with Diffon 02-27-2023 Platelet, Fluoresc. 121 k/uL Low 138-453 [facility] Comment on above: Performed By: #### C DP, MG, CPBILX #### [facility] [employer] [address] [place] [address] Iron Caster: Prabhjot Gross MD PLT, Immature Fract. 4.0 % Normal 1.1-10.3 [facility] Comment on above: Performed By: #### C DP, MG, CPBILX #### [facility] [employer] [address] [place] [address] Iron Caster: Prabhjot Gross MD Abs. Basophil <0.03 Normal 0.00-0.20 [facility] Comment on above: Performed By: #### C DP, MG, CPBILX #### [facility] [employer] [address] [place] [address] Iron Caster: Prabhjot Gross MD Abs.Imm.Granulocyte 0.03 k/uL Normal 0.00-0.30 [facility] Comment on above: Performed By: #### C DP, MG, CPBILX #### [facility] [employer] [address] [place] [address] Iron Caster: Prabhjot Gross MD Abs.Neutrophil (Seg) 2.29 k/uL Normal 1.50-8.10 [facility] Comment on above: Performed By: #### C DP, MG, CPBILX #### [facility] [employer] [address] [place] [address] Iron Caster: Prabhjot Gross MD Basophils/100 WBC (Bld) 0 % Normal 0-2 M [facility] Comment on above: Performed By: #### C DP, MG, CPBILX #### [address] [address] Iron Caster: Prabhjot Gross MD Eosinophils (Bld) [#/Vol] 0.10 10*3/uL Normal 0.00-0.4 4 [facility] Comment on above: Performed By: #### C DP, MG, CPBILX #### [address] [address] Iron Caster: Prabhjot Gross MD Eosinophils/100 WBC (Bld) 3 % Normal 1-4 [facility] Comment on above: Performed By: #### C DP, MG, CPBILX #### [address] [address] Iron Caster: Prabhjot Gross MD Erythrocyte distribution wid th (RBC) [Ratio] 13.1 % Normal 11.8-14.4 [facility] Comment on above: Performed By: #### C DP, MG, CPBILX #### [address] [address] Iron Caster: Prabhjot Gross MD Hematocrit (Bld) [Volume fraction] 36.3 % Low 4 0.7-50.3 [facility] Comment on above: Performed By: #### C DP, MG, CPBILX #### [place] [address] Iron Caster: Prabhjot Gross MD Hemoglobin (Bld) [Mass/Vol] 12.7 g/dL Low 13.0-17. 0 [facility] Comment on above: Performed By: #### C DP, MG, CPBILX #### [address] [address] Iron Caster: Prabhjot Gross MD Immature granulocytes/100 WBC (Bld) 1 % High 0 [facility] Comment on above: Performed By: #### C DP, MG, CPBILX #### [address] [address] Iron Caster: Prabhjot Gross MD Lymphocytes (Bld) [#/Vol] 1.08 10*3/uL Low 1.10-3.7 0 [facility] Comment on above: Performed By: #### C DP, MG, CPBILX #### [place] [address] Iron Caster: Prabhjot Gross MD Lymphocytes/100 WBC (Bld) 28 % Normal 24-43 [facility] Comment on above: Performed By: #### C DP, MG, CPBILX #### [place] [address] Iron Caster: Prabhjot Gross MD MCH (RBC) [Entitic mass] 30.8 pg Normal 25.2-33.5 [facility] Comment on above: Performed By: #### C DP, MG, CPBILX #### [place] [address] Iron Caster: Prabhjot Gross MD MCHC (RBC) [Mass/Vol] 35.0 g/dL High 28.4-34.8 [facility] Comment on above: Performed By: #### C DP, MG, CPBILX #### [place] [address] Iron Caster: Prabhjot Gross MD MCV (RBC) [Entitic vol] 88.1 fL Normal 82.6-102.9 M [facility] Comment on above: Performed By: #### C DP, MG, CPBILX #### [place] [address] Iron Caster: Prabhjot Gross MD Monocytes (Bld) [#/Vol] 0.42 10*3/uL Normal 0.10-1.20 [facility] Comment on above: Performed By: #### C DP, MG, CPBILX #### [address] [address] Iron Caster: Prabhjot Gross MD Monocytes/100 WBC (Bld) 11 % Normal 3-12 M [facility] Comment on above: Performed By: #### C DP, MG, CPBILX #### [address] [address] Iron Caster: Prabhjot Gross MD Neutrophil (Seg) 58 % Normal 36-65 [facility] Comment on above: Performed By: #### C DP, MG, CPBILX #### [address] [address] Iron Caster: Prabhjot Gross MD NRBC Automated 0.0 per 100 WBC Normal 0.0 [facility] Comment on above: Performed By: #### C DP, MG, CPBILX #### [address] [address] Iron Caster: Prabhjot Gross MD Platelet Count See Reflexed IPF Result Normal 138-453 [facility] Comment on above: Performed By: #### C DP, MG, CPBILX #### [address] [address] Iron Caster: Prabhjot Gross MD RBC (Bld) [#/Vol] 4.12 10*6/uL Low 4.21-5.77 [facility] Comment on above: Performed By: #### C DP, MG, CPBILX #### [address] [address] Iron Caster: Prabhjot Gross MD WBC (Bld) [#/Vol] 3.9 10*3/uL Normal 3.5-11.3 [facility] Comment on above: Performed By: #### C DP, MG, CPBILX #### [address] [place] [address] Iron Caster: Prabhjot Gross MD Comp Met+Bili/rfx MGon 02-27 Creatinine [Mass/Vol] 0.60 mg/dL Low 0.70-1.20 [facility] Comment on above: Result Comment: ICTE FORTINO SPECIMEN Performed By: #### C DP, MG, CPBILX #### [facility] [employer] [address] [place] [address] Iron Caster: Prabhjot Gross MD GFR/1.73 sq M.predicted umer g non-blacks MDRD (S/P/Bld) [Vol rate/Area] mL/min/{1.73_m2} Normal >60 [facility] Comment on above: Result Comment: These results are not intended for use in patients <18 years of age. eGFR results are calculated without a race factor using the 2020 CKD-EPI equation. Careful clinical correlation is recommended, particularly when comparing to results calculated using previous equations. The CKD-EPI equation is less accurate in patients with extremes of muscle mass, extra-renal metabolism of creatine, excessive creatine ingestion, or following therapy that affects renal tubular secretion. Performed By: #### C DP, MG, CPBILX #### [address] [address] Iron Caster: Prabhjot Gross MD Albumin [Mass/Vol] 2.8 g/dL Low 3.5-5.2 [facility] Comment on above: Performed By: #### C DP, MG, CPBILX #### [facility] [employer] [address] [place] [address] Iron Caster: Prabhjot Gross MD Albumin/Glob Ratio 1.2 Normal 1.0-2.5 [facility] Comment on above: Performed By: #### C DP, MG, CPBILX #### [facility] [employer] [address] [place] [address] Iron Caster: Prabhjot Gross MD Alkaline Phos 199 U/L High 40-129 [facility] Comment on above: Performed By: #### C DP, MG, CPBILX #### [facility] [employer] [address] [place] [address] Iron Caster: Prabhjot Gross MD ALT [Catalytic activity/Vol] 71 U/L High 5-41 [facility] Comment on above: Performed By: #### C DP, MG, CPBILX #### [facility] [employer] [address] [place] [address] Iron Caster: Prabhjot Gross MD Anion gap [Moles/Vol] 9 mmol/L Normal 9-17 [facility] Comment on above: Performed By: #### C DP, MG, CPBILX #### [facility] [employer] [address] [place] [address] Iron Caster: Prabhjot Gross MD AST [Catalytic activity/Vol] 52 U/L High <40 [facility] Comment on above: Performed By: #### C DP, MG, CPBILX #### [facility] [employer] [address] [place] [address] Iron Caster: Prabhjot Gross MD Bilirubin [Mass/Vol] 5.1 mg/dL High 0.3-1.2 [facility] Comment on above: Performed By: #### C DP, MG, CPBILX #### [facility] [employer] [address] [place] [address] Iron Caster: Prabhjot Gross MD Bilirubin, Indirect 1.5 mg/dL High 0.0-1.0 [facility] Comment on above: Performed By: #### C DP, MG, CPBILX #### [facility] [address] [place] [address] Iron Caster: Prabhjot Gross MD Bilirubin.indirect [Mass/Vol] 3.6 mg/dL High <0.3 [facility] Comment on above: Performed By: #### C DP, MG, CPBILX #### [address] [address] Iron Caster: Prabhjot Gross MD Calcium [Mass/Vol] 8.2 mg/dL Low 8.6-10.4 [facility] Comment on above: Performed By: #### C DP, MG, CPBILX #### [address] [address] Iron Caster: Prabhjot Gross MD Chloride [Moles/Vol] 108 mmol/L High 98-107 [facility] Comment on above: Performed By: #### C DP, MG, CPBILX #### [facility] [employer] [address] [place] [address] Iron Caster: Prabhjot Gross MD CO2 [Moles/Vol] 19 mmol/L Low 20-31 [facility] Comment on above: Performed By: #### C DP, MG, CPBILX #### [facility] [address] [place] [address] Iron Caster: Prabhjot Gross MD Glucose [Mass/Vol] 107 mg/dL High 70-99 [facility] Comment on above: Performed By: #### C DP, MG, CPBILX #### [facility] [address] [place] [address] Iron Caster: Prabhjot Gross MD Potassium [Moles/Vol] 3.5 mmol/L Low 3.7-5.3 [facility] Comment on above: Performed By: #### C DP, MG, CPBILX #### [facility] [employer] [address] [place] [address] Iron Caster: Prabhjot Gross MD Protein [Mass/Vol] 5.2 g/dL Low 6.4-8.3 [facility] Comment on above: Performed By: #### C DP, MG, CPBILX #### [facility] [address] [place], [place] [id number] Iron Caster: Prabhjot Gross MD Sodium [Moles/Vol] 136 mmol/L Normal 135-144 [facility] Comment on above: Performed By: #### C DP, MG, CPBILX #### [facility] [address] [place] [address] Iron Caster: Prabhjot Gross MD Urea nitrogen [Mass/Vol] 11 mg/dL Normal 8-23 [facility] Comment on above: Performed By: #### C DP, MG, CPBILX #### [facility] [address] [place], [place] [phone] Iron Caster: Prabhjot Gross MD Comprehensive Metabolic w/ B valeri Profile w/ Reflex to MGon 02-27-2023 Albumin [Mass/Vol] 2.8 g/dL Low 3.5 - 5.2 g/dL [facility] [employer] Albumin/Globulin [Mass ratio] 1.2 {ratio} 1.0 - 2.5 [facility] ALP [Catalytic activity/Vol] 199 U/L High 40 - 129 U/L [facility] ALT [Catalytic activity/Vol] 71 U/L High 5 - 41 U/L [facility] Anion gap [Moles/Vol] 9 mmol/L 9 - 17 mmol/L [facility] AST [Catalytic activity/Vol] 52 U/L High NINF - 40 U/L [facility] Bilirubin [Mass/Vol] 5.1 mg/dL High 0.3 - 1.2 mg/dL [facility] Bilirubin.direct [Mass/Vol] 3.6 mg/dL High NINF - 0 .3 mg/dL [facility] [employer] Bilirubin.indirect [Mass/Vol] 1.5 mg/dL High 0.0 - 1.0 mg/dL [facility] Calcium [Mass/Vol] 8.2 mg/dL Low 8.6 - 10.4 mg/dL [facility] Chloride [Moles/Vol] 108 mmol/L High 98 - 107 mmol/L [facility] CO2 [Moles/Vol] 19 mmol/L Low 20 - 31 mmol/L [facility] Creatinine [Mass/Vol] 0.60 mg/dL Low 0.70 - 1.20 mg /dL [facility] Comment on above: ICTERIC SPECIMEN GFR/1.73 sq M.predicted MDRD (S/P/Bld) [Vol rate/Area] - PINF [facility] Comment on above: These results are not intended for use in patients <18 years of age. eGFR results are calculated without a race factor using the 2020 CKD-EPI equation. Careful clinical correlation is recommended, particularly when comparing to results calculated using previous equations. The CKD-EPI equation is less accurate in patients with extremes of muscle mass, extra-renal metabolism of creatine, excessive creatine ingestion, or following therapy that affects renal tubular secretion. Glucose [Mass/Vol] 107 mg/dL High 70 - 99 mg/dL [facility] Interpretation and review of laboratory results Abnormal [facility] Potassium [Moles/Vol] 3.5 mmol/L Low 3.7 - 5.3 mmol /L [facility] Protein [Mass/Vol] 5.2 g/dL Low 6.4 - 8.3 g/dL [facility] Sodium [Moles/Vol] 136 mmol/L 135 - 144 mmol/L [facility] Urea nitrogen [Mass/Vol] 11 mg/dL 8 - 23 mg/d L [facility] Magnesiumon 02-27-2023 Magnesium [Mass/Vol] 2.0 mg/dL Normal 1.6-2.6 [facility] Comment on above: Performed By: #### C P, PJ, IOCAL, PT, TRIG, MG, LIP, CDP #### [facility] [facility] [id number] Iron Caster: Prabhjot Gross MD Magnesium [Mass/Vol] 2.0 mg/dL 1.6 - 2.6 mg/dL [facility] CBC with Auto Differentialon 02-26-2023 Basophils (Bld) [#/Vol] B ON [facility] Basophils/100 WBC (Bld) 0 % 0 - 2 % B ON [facility] Eosinophils (Bld) [#/Vol] 0.08 10*3/uL [facility] Eosinophils/100 WBC (Bld) 2 % 1 - 4 % [facility] Erythrocyte distribution width (RBC) [Ratio] 13.2 % 11.8 - 14.4 % [facility] Hematocrit (Bld) [Volume fraction] 38.2 % Low 40.7 - 50.3 % [facility] Hemoglobin (Bld) [Mass/Vol] 13.2 g/dL 13.0 - 1 7.0 g/dL [facility] Immature granulocytes (Bld) [#/Vol] [facility] Immature granulocytes/100 WB C (Bld) 0 % 0 [facility] Interpretation and review of laboratory results Abnormal [facility] Lymphocytes/100 WBC (Bld) 21 % Low 24 - 43 % [facility] Lymphocytes/100 WBC (Bld) 0.99 % Low [facility] MCH (RBC) [Entitic mass] 30.5 pg 25.2 - 33.5 pg [facility] MCHC (RBC) [Mass/Vol] 34.6 g/dL 28.4 - 34.8 g/ dL [facility] MCV (RBC) [Entitic vol] 88.2 fL 82.6 - 102.9 fL [facility] Monocytes/100 WBC (Bld) 8 % 3 - 12 % B ON [facility] Monocytes/100 WBC (Bld) 0.36 % B ON [facility] Neutrophils/100 WBC (Bld) 69 % High 36 - 65 % [facility] Nucleated RBC/100 WBC (Bld) [Ratio] 0.0 % 0.0 per 100 WBC [facility] Platelet, Fluorescence 124 Low [facility] Comment on above: CDP Platelets (Bld) [#/Vol] See Reflexed IPF Result [facility] Platelets reticulated/100 platelets Auto (Bld) 4.3 % 1.1 - 10.3 % [facility] Comment on above: CDP RBC (Bld) [#/Vol] 4.33 10*6/uL 4.21 - 5.77 m/uL [facility] Segmented neutrophils/100 WBC (Bld) 3.16 % [facility] WBC other (Bld) [#/Vol] 4.6 B ON [facility] CBC with Diffon 02-26-2023 Platelet, Fluoresc. 124 k/uL Low 138-453 [facility] Comment on above: Result Comment: CDP Performed By: #### C P, PJ, IOCAL, PT, TRIG, MG, LIP, CDP #### [place] [address] Iron Caster: Prabhjot Gross MD PLT, Immature Fract. 4.3 % Normal 1.1-10.3 [facility] Comment on above: Result Comment: CDP Performed By: #### C P, PJ, IOCAL, PT, TRIG, MG, LIP, CDP #### [place] [address] Iron Caster: Prabhjot Gross MD Abs. Basophil <0.03 Normal 0.00-0.20 [facility] Comment on above: Performed By: #### C P, PJ, IOCAL, PT, TRIG, MG, LIP, CDP #### [facility] [employer] [address] [place] [address] Iron Caster: Prabhjot Gross MD Abs.Imm.Granulocyte <0.03 Normal 0.00-0.30 [facility] Comment on above: Performed By: #### C P, PJ, IOCAL, PT, TRIG, MG, LIP, CDP #### [facility] [address] [place] [address] Iron Caster: Prabhjot Gross MD Abs.Neutrophil (Seg) 3.16 k/uL Normal 1.50-8.10 [facility] Comment on above: Performed By: #### C P, PJ, IOCAL, PT, TRIG, MG, LIP, CDP #### [address] [address] Iron Caster: Prabhjot Gross MD Basophils/100 WBC (Bld) 0 % Normal 0-2 M [facility] Comment on above: Performed By: #### C P, PJ, IOCAL, PT, TRIG, MG, LIP, CDP #### [address] [address] Iron Caster: Prabhjot Gross MD Eosinophils (Bld) [#/Vol] 0.08 10*3/uL Normal 0.00-0.4 4 [facility] Comment on above: Performed By: #### C P, PJ, IOCAL, PT, TRIG, MG, LIP, CDP #### [address] [address] Iron Caster: Prabhjot Gross MD Eosinophils/100 WBC (Bld) 2 % Normal 1-4 [facility] Comment on above: Performed By: #### C P, PJ, IOCAL, PT, TRIG, MG, LIP, CDP #### [address] [address] Iron Caster: Prabhjot Gross MD Erythrocyte distribution wid th (RBC) [Ratio] 13.2 % Normal 11.8-14.4 [facility] Comment on above: Performed By: #### C P, PJ, IOCAL, PT, TRIG, MG, LIP, CDP #### [address] [address] Iron Caster: Prabhjot Gross MD Hematocrit (Bld) [Volume fraction] 38.2 % Low 4 0.7-50.3 [facility] Comment on above: Performed By: #### C P, PJ, IOCAL, PT, TRIG, MG, LIP, CDP #### [address] [address] Iron Caster: Prabhjot Gross MD Hemoglobin (Bld) [Mass/Vol] 13.2 g/dL Normal 13.0-17. 0 [facility] Comment on above: Performed By: #### C P, PJ, IOCAL, PT, TRIG, MG, LIP, CDP #### [address] [address] Iron Caster: Prabhjot Gross MD Immature granulocytes/100 WBC (Bld) 0 % Normal 0 [facility] Comment on above: Performed By: #### C P, PJ, IOCAL, PT, TRIG, MG, LIP, CDP #### [address] [address] Iron Caster: Prabhjot Gross MD Lymphocytes (Bld) [#/Vol] 0.99 10*3/uL Low 1.10-3.7 0 [facility] Comment on above: Performed By: #### C P, PJ, IOCAL, PT, TRIG, MG, LIP, CDP #### [place] [address] Iron Caster: Prabhjot Gross MD Lymphocytes/100 WBC (Bld) 21 % Low 24-43 [facility] Comment on above: Performed By: #### C P, PJ, IOCAL, PT, TRIG, MG, LIP, CDP #### [address] [address] Iron Caster: Prabhjot Gross MD MCH (RBC) [Entitic mass] 30.5 pg Normal 25.2-33.5 [facility] Comment on above: Performed By: #### C P, PJ, IOCAL, PT, TRIG, MG, LIP, CDP #### [address] [address] Iron Caster: Prabhjot Gross MD [facility] [Mass/Vol] 34.6 g/dL Normal 28.4-34.8 [facility] Comment on above: Performed By: #### C P, PJ, IOCAL, PT, TRIG, MG, LIP, CDP #### [address] [address] Iron Caster: Prabhjot Gross MD MCV (RBC) [Entitic vol] 88.2 fL Normal 82.6-102.9 M [facility] Comment on above: Performed By: #### C P, PJ, IOCAL, PT, TRIG, MG, LIP, CDP #### [address] [address] Iron Caster: Prabhjot Gross MD Monocytes (Bld) [#/Vol] 0.36 10*3/uL Normal 0.10-1.20 [facility] Comment on above: Performed By: #### C P, PJ, IOCAL, PT, TRIG, MG, LIP, CDP #### [address] [address] Iron Caster: Prabhjot Gross MD Monocytes/100 WBC (Bld) 8 % Normal 3-12 M [facility] Comment on above: Performed By: #### C P, PJ, IOCAL, PT, TRIG, MG, LIP, CDP #### [address] [address] Iron Caster: Prabhjot Gross MD Neutrophil (Seg) 69 % High 36-65 [facility] Comment on above: Performed By: #### C P, PJ, IOCAL, PT, TRIG, MG, LIP, CDP #### [address] [address] Iron Caster: Prabhjot Gross MD NRBC Automated 0.0 per 100 WBC Normal 0.0 [facility] Comment on above: Performed By: #### C P, PJ, IOCAL, PT, TRIG, MG, LIP, CDP #### [address] [address] Iron Caster: Prabhjot Gross MD Platelet Count See Reflexed IPF Result Normal 138-453 [facility] Comment on above: Performed By: #### C P, PJ, IOCAL, PT, TRIG, MG, LIP, CDP #### [address] [address] Iron Caster: Prabhjot Gross MD RBC (Bld) [#/Vol] 4.33 10*6/uL Normal 4.21-5.77 [facility] Comment on above: Performed By: #### C P, PJ, IOCAL, PT, TRIG, MG, LIP, CDP #### [address] [address] Iron Caster: Prabhjot Gross MD WBC (Bld) [#/Vol] 4.6 10*3/uL Normal 3.5-11.3 [facility] Comment on above: Performed By: #### C P, PJ, IOCAL, PT, TRIG, MG, LIP, CDP #### [address] [address] Iron Caster: Prabhjot Gross MD Comp Metabolic Pr/rfx MGon 0 02-26-2023 Creatinine [Mass/Vol] 0.54 mg/dL Low 0.70-1.20 [facility] Comment on above: Result Comment: ICTE FORTINO SPECIMEN Performed By: #### C P, PJ, IOCAL, PT, TRIG, MG, LIP, CDP #### [address] [address] Iron Caster: Prabhjot Gross MD GFR/1.73 sq M.predicted umer g non-blacks MDRD (S/P/Bld) [Vol rate/Area] mL/min/{1.73_m2} Normal >60 [facility] Comment on above: Result Comment: These results are not intended for use in patients <18 years of age. eGFR results are calculated without a race factor using the 2020 CKD-EPI equation. Careful clinical correlation is recommended, particularly when comparing to results calculated using previous equations. The CKD-EPI equation is less accurate in patients with extremes of muscle mass, extra-renal metabolism of creatine, excessive creatine ingestion, or following therapy that affects renal tubular secretion. Performed By: #### C P, PJ, IOCAL, PT, TRIG, MG, LIP, CDP #### [address] [address] Iron Caster: Prabhjot Gross MD Albumin [Mass/Vol] 3.0 g/dL Low 3.5-5.2 [facility] Comment on above: Performed By: #### C P, PJ, IOCAL, PT, TRIG, MG, LIP, CDP #### [address] [address] Iron Caster: Prabhjot Gross MD Albumin/Glob Ratio 1.2 Normal 1.0-2.5 [facility] Comment on above: Performed By: #### C P, PJ, IOCAL, PT, TRIG, MG, LIP, CDP #### [address] [address] Iron Caster: Prabhjot Gross MD Alkaline Phos 219 U/L High 40-129 [facility] Comment on above: Performed By: #### C P, PJ, IOCAL, PT, TRIG, MG, LIP, CDP #### [address] [address] Iron Caster: Prabhjot Gross MD ALT [Catalytic activity/Vol] 88 U/L High 5-41 [facility] Comment on above: Performed By: #### C P, PJ, IOCAL, PT, TRIG, MG, LIP, CDP #### [address] [address] Iron Caster: Prabhjot Gross MD Anion gap [Moles/Vol] 12 mmol/L Normal 9-17 [facility] Comment on above: Performed By: #### C P, PJ, IOCAL, PT, TRIG, MG, LIP, CDP #### [facility] [employer] [address] [place] [address] Iron Caster: Prabhjot Gross MD AST [Catalytic activity/Vol] 62 U/L High <40 [facility] Comment on above: Performed By: #### C P, PJ, IOCAL, PT, TRIG, MG, LIP, CDP #### [address] [address] Iron Caster: Prabhjot rGoss MD Bilirubin [Mass/Vol] 7.5 mg/dL High 0.3-1.2 [facility] Comment on above: Performed By: #### C P, PJ, IOCAL, PT, TRIG, MG, LIP, CDP #### [address] [address] Iron Caster: Prabhjot Gross MD Calcium [Mass/Vol] 8.3 mg/dL Low 8.6-10.4 [facility] Comment on above: Performed By: #### C P, PJ, IOCAL, PT, TRIG, MG, LIP, CDP #### [address] [address] Iron Caster: Prabhjot Gross MD Chloride [Moles/Vol] 107 mmol/L Normal 98-107 [facility] Comment on above: Performed By: #### C P, PJ, IOCAL, PT, TRIG, MG, LIP, CDP #### [address] [address] Iron Caster: Prabhjot Gross MD CO2 [Moles/Vol] 18 mmol/L Low 20-31 [facility] Comment on above: Performed By: #### C P, PJ, IOCAL, PT, TRIG, MG, LIP, CDP #### [address] [address] Iron Caster: Prabhjot Gross MD Glucose [Mass/Vol] 78 mg/dL Normal 70-99 [facility] Comment on above: Performed By: #### C P, PJ, IOCAL, PT, TRIG, MG, LIP, CDP #### [facility] [employer] [address] [place] [address] Iron Caster: Prabhjot Gross MD Potassium [Moles/Vol] 3.6 mmol/L Low 3.7-5.3 [facility] Comment on above: Performed By: #### C P, PJ, IOCAL, PT, TRIG, MG, LIP, CDP #### [facility] [address] [place] [address] Iron Caster: Prabhjot Gross MD Protein [Mass/Vol] 5.6 g/dL Low 6.4-8.3 [facility] Comment on above: Performed By: #### C P, PJ, IOCAL, PT, TRIG, MG, LIP, CDP #### [address] [address] Iron Caster: Prabhjot Gross MD Sodium [Moles/Vol] 137 mmol/L Normal 135-144 [facility] Comment on above: Performed By: #### C P, PJ, IOCAL, PT, TRIG, MG, LIP, CDP #### [facility] [address] [place] [address] Iron Caster: Prabhjot Gross MD Urea nitrogen [Mass/Vol] 17 mg/dL Normal 8-23 [facility] Comment on above: Performed By: #### C P, PJ, IOCAL, PT, TRIG, MG, LIP, CDP #### [facility] [address] [place] [address] Iron Caster: Prabhjot Gross MD Comprehensive Metabolic Pane l w/ Reflex to MGon 02-26-2023 Albumin [Mass/Vol] 3.0 g/dL Low 3.5 - 5.2 g/dL [facility] Albumin/Globulin [Mass ratio] 1.2 {ratio} 1.0 - 2.5 [facility] ALP [Catalytic activity/Vol] 219 U/L High 40 - 129 U/L [facility] ALT [Catalytic activity/Vol] 88 U/L High 5 - 41 U/L [facility] Anion gap [Moles/Vol] 12 mmol/L 9 - 17 mmol/L [facility] AST [Catalytic activity/Vol] 62 U/L High NINF - 40 U/L [facility] Bilirubin [Mass/Vol] 7.5 mg/dL High 0.3 - 1.2 mg/dL [facility] Calcium [Mass/Vol] 8.3 mg/dL Low 8.6 - 10.4 mg/dL [facility] Chloride [Moles/Vol] 107 mmol/L 98 - 107 mmol/L [facility] CO2 [Moles/Vol] 18 mmol/L Low 20 - 31 mmol/L [facility] Creatinine [Mass/Vol] 0.54 mg/dL Low 0.70 - 1.20 mg /dL [facility] Comment on above: ICTERIC SPECIMEN GFR/1.73 sq M.predicted MDRD (S/P/Bld) [Vol rate/Area] - PINF [facility] Comment on above: These results are not intended for use in patients <18 years of age. eGFR results are calculated without a race factor using the 2020 CKD-EPI equation. Careful clinical correlation is recommended, particularly when comparing to results calculated using previous equations. The CKD-EPI equation is less accurate in patients with extremes of muscle mass, extra-renal metabolism of creatine, excessive creatine ingestion, or following therapy that affects renal tubular secretion. Glucose [Mass/Vol] 78 mg/dL 70 - 99 mg/dL [facility] Interpretation and review of laboratory results Abnormal [facility] Potassium [Moles/Vol] 3.6 mmol/L Low 3.7 - 5.3 mmol /L [facility] Protein [Mass/Vol] 5.6 g/dL Low 6.4 - 8.3 g/dL [facility] Sodium [Moles/Vol] 137 mmol/L 135 - 144 mmol/L [facility] Urea nitrogen [Mass/Vol] 17 mg/dL 8 - 23 mg/d L [facility] PTon 02-26-2023 INR Coag (PPP) [Relative time] 1.0 {INR} Normal [facility] Comment on above: Result Comment: Therapeutic Range: Moderate Anticoagulant Intensity: INR = 2.0-3.0 High Anticoagulant Intensity: INR = 2.5-3.5 Performed By: #### C P, PJ, IOCAL, PT, TRIG, MG, LIP, CDP #### [employer] [facility] [place] [address] Iron Caster: Prabhjot Gross MD PT Coag (PPP) [Time] 13.1 s Normal 11.7-14.9 [facility] Comment on above: Performed By: #### C P, PJ, IOCAL, PT, TRIG, MG, LIP, CDP #### [facility] [place] [address] Iron Caster: Prabhjot Gross MD Protime-INRon 02-26-2023 INR Coag (PPP) [Relative time] 1.0 {INR} [facility] Comment on above: Therapeutic Range: Moderate Anticoagulant Intensity: INR = 2.0-3.0 High Anticoagulant Intensity: INR = 2.5-3.5 PT Coag (PPP) [Time] 13.1 s [facility] CBC with Auto Differentialon 02-25-2023 Basophils (Bld) [#/Vol] 0.00 10*3/uL [facility] Basophils/100 WBC (Bld) 0 % 0 - 2 % B [facility] Eosinophils (Bld) [#/Vol] 0.00 10*3/uL [facility] Eosinophils/100 WBC (Bld) 0 % Low 1 - 4 % [facility] Erythrocyte distribution width (RBC) [Ratio] 13.2 % 11.8 - 14.4 % [facility] Hematocrit (Bld) [Volume fraction] 37.4 % Low 40.7 - 50.3 % [facility] Hemoglobin (Bld) [Mass/Vol] 12.8 g/dL Low 13.0 - 1 7.0 g/dL [facility] Immature granulocytes (Bld) [#/Vol] 0.06 10*3/uL [facility] Immature granulocytes/100 WB C (Bld) 1 % High 0 [facility] Interpretation and review of laboratory results Abnormal [facility] Lymphocytes/100 WBC (Bld) 11 % Low 24 - 43 % [facility] Lymphocytes/100 WBC (Bld) 0.69 % Low [facility] MCH (RBC) [Entitic mass] 30.9 pg 25.2 - 33.5 pg [facility] MCHC (RBC) [Mass/Vol] 34.2 g/dL 28.4 - 34.8 g/ dL [facility] MCV (RBC) [Entitic vol] 90.3 fL 82.6 - 102.9 fL [facility] Monocytes/100 WBC (Bld) 8 % 3 - 12 % B ON [facility] Monocytes/100 WBC (Bld) 0.50 % B ON [facility] Morphology Too (Bld) [Interp] Normal [facility] Neutrophils/100 WBC (Bld) 80 % High 36 - 65 % [facility] Nucleated RBC/100 WBC (Bld) [Ratio] 0.0 % 0.0 per 100 WBC [facility] Platelet mean volume (Bld) [Entitic vol] 11.6 fL 8.1 - 13.5 fL [facility] Platelets (Bld) [#/Vol] 124 10*3/uL Low [facility] RBC (Bld) [#/Vol] 4.14 10*6/uL Low 4.21 - 5.77 m/uL [facility] Segmented neutrophils/100 WB C (Bld) 5.05 % [facility] WBC other (Bld) [#/Vol] 6.3 B ON [facility] CBC with Diffon 02-25-2023 Abs. Basophil 0.00 k/uL Normal 0.00-0.20 [facility] Comment on above: Performed By: #### C P, PJ, IOCAL, PT, TRIG, MG, LIP, CDP #### [address] [address] Iron Caster: Prabhjot Gross MD Abs.Imm.Granulocyte 0.06 k/uL Normal 0.00-0.30 [facility] Comment on above: Performed By: #### C P, PJ, IOCAL, PT, TRIG, MG, LIP, CDP #### [address] [address] Iron Caster: Prabhjot Gross MD Abs.Neutrophil (Seg) 5.05 k/uL Normal 1.50-8.10 [facility] Comment on above: Performed By: #### C P, PJ, IOCAL, PT, TRIG, MG, LIP, CDP #### [place] [address] Iron Caster: Prabhjot Gross MD Basophils/100 WBC (Bld) 0 % Normal 0-2 [facility] Comment on above: Performed By: #### C P, PJ, IOCAL, PT, TRIG, MG, LIP, CDP #### [place] [address] Iron Caster: Prabhjot Gross MD Eosinophils (Bld) [#/Vol] 0.00 10*3/uL Normal 0.00-0.4 4 [facility] Comment on above: Performed By: #### C P, PJ, IOCAL, PT, TRIG, MG, LIP, CDP #### [address] [address] Iron Caster: Prabhjot Gross MD Eosinophils/100 WBC (Bld) 0 % Low 1-4 [facility] Comment on above: Performed By: #### C P, PJ, IOCAL, PT, TRIG, MG, LIP, CDP #### [address] [address] Iron Caster: Prabhjot Gross MD Immature granulocytes/100 WBC (Bld) 1 % High 0 [facility] Comment on above: Performed By: #### C P, PJ, IOCAL, PT, TRIG, MG, LIP, CDP #### [address] [address] Iron Caster: Prabhjot Gross MD Lymphocytes (Bld) [#/Vol] 0.69 10*3/uL Low 1.10-3.7 0 [facility] Comment on above: Performed By: #### C P, PJ, IOCAL, PT, TRIG, MG, LIP, CDP #### [address] [address] Iron Caster: Prabhjot Gross MD Lymphocytes/100 WBC (Bld) 11 % Low 24-43 [facility] Comment on above: Performed By: #### C P, PJ, IOCAL, PT, TRIG, MG, LIP, CDP #### [address] [address] Iron Caster: Prabhjot Gross MD Monocytes (Bld) [#/Vol] 0.50 10*3/uL Normal 0.10-1.20 [facility] Comment on above: Performed By: #### C P, PJ, IOCAL, PT, TRIG, MG, LIP, CDP #### [address] [address] Iron Caster: Prabhjot Gross MD Monocytes/100 WBC (Bld) 8 % Normal 3-12 M [facility] Comment on above: Performed By: #### C P, PJ, IOCAL, PT, TRIG, MG, LIP, CDP #### [address] [address] Iron Caster: Prabhjot Gross MD Morphology Too (Bld) [Interp] Normal Normal [facility] Comment on above: Performed By: #### C P, PJ, IOCAL, PT, TRIG, MG, LIP, CDP #### [address] [address] Iron Caster: Prabhjot Gross MD Neutrophil (Seg) 80 % High 36-65 [facility] Comment on above: Performed By: #### C P, PJ, IOCAL, PT, TRIG, MG, LIP, CDP #### [address] [address] Iron Caster: Prabhjot Gross MD Erythrocyte distribution wid th (RBC) [Ratio] 13.2 % Normal 11.8-14.4 [facility] Comment on above: Performed By: #### C P, PJ, IOCAL, PT, TRIG, MG, LIP, CDP #### [address] [address] Iron Caster: Prabhjot Gross MD Hematocrit (Bld) [Volume fraction] 37.4 % Low 4 0.7-50.3 [facility] Comment on above: Performed By: #### C P, PJ, IOCAL, PT, TRIG, MG, LIP, CDP #### [facility] [employer] [address] [place] [address] Iron Caster: Prabhjot Gross MD Hemoglobin (Bld) [Mass/Vol] 12.8 g/dL Low 13.0-17. 0 [facility] Comment on above: Performed By: #### C P, PJ, IOCAL, PT, TRIG, MG, LIP, CDP #### [facility] [employer] [address] [place] [address] Iron Caster: Prabhjot Gross MD MCH (RBC) [Entitic mass] 30.9 pg Normal 25.2-33.5 [facility] Comment on above: Performed By: #### C P, PJ, IOCAL, PT, TRIG, MG, LIP, CDP #### [facility] [employer] [address] [place] [address] Iron Caster: Prabhjot Gross MD MCHC (RBC) [Mass/Vol] 34.2 g/dL Normal 28.4-34.8 [facility] Comment on above: Performed By: #### C P, PJ, IOCAL, PT, TRIG, MG, LIP, CDP #### [address] [address] Iron Caster: Prabhjot Gross MD MCV (RBC) [Entitic vol] 90.3 fL Normal 82.6-102.9 [facility] Comment on above: Performed By: #### C P, PJ, IOCAL, PT, TRIG, MG, LIP, CDP #### [place] [address] Iron Caster: Prabhjot Gross MD NRBC Automated 0.0 per 100 WBC Normal 0.0 [facility] Comment on above: Performed By: #### C P, PJ, IOCAL, PT, TRIG, MG, LIP, CDP #### [place] [address] Iron Caster: Prabhjot Gross MD Platelet mean volume (Bld) [Entitic vol] 11.6 fL Normal 8.1-13.5 [facility] Comment on above: Performed By: #### C P, PJ, IOCAL, PT, TRIG, MG, LIP, CDP #### [place] [address] Iron Caster: Prabhjot Gross MD Platelets (Bld) [#/Vol] 124 10*3/uL Low 138-453 [facility] Comment on above: Performed By: #### C P, PJ, IOCAL, PT, TRIG, MG, LIP, CDP #### [place] [address] Iron Caster: Prabhjot Gross MD RBC (Bld) [#/Vol] 4.14 10*6/uL Low 4.21-5.77 [facility] Comment on above: Performed By: #### C P, PJ, IOCAL, PT, TRIG, MG, LIP, CDP #### [address] [id number] Iron Caster: Prabhjot Gross MD WBC (Bld) [#/Vol] 6.3 10*3/uL Normal 3.5-11.3 [facility] Comment on above: Performed By: #### C P, PJ, IOCAL, PT, TRIG, MG, LIP, CDP #### [address] [address] Iron Caster: Prabhjot Gross MD Calcium, Ionicon 0 Calcium [Moles/Vol] 1.05 mmol/L Low 1.13-1.33 [facility] Comment on above: Performed By: #### C P, PJ, IOCAL, PT, TRIG, MG, LIP, CDP #### [address] [address] Iron Caster: Prabhjot Gross MD Calcium, Ionizedon 3 Calcium.ionized (Bld) [Moles/Vol] 1.05 mmol/L Low 1.13 - 1.33 mmol/L [facility] Interpretation and review of laboratory results Abnormal [facility] Comp Metabolic Profon 2022 Creatinine [Mass/Vol] 0.64 mg/dL Low 0.70-1.20 [facility] Comment on above: Result Comment: ICTE FORTINO SPECIMEN Performed By: #### C P, PJ, IOCAL, PT, TRIG, MG, LIP, CDP #### [address] [id number] [employer] Caster: Prabhjot Gross MD GFR/1.73 sq M.predicted umer g non-blacks MDRD (S/P/Bld) [Vol rate/Area] mL/min/{1.73_m2} Normal >60 [facility] Comment on above: Result Comment: These results are not intended for use in patients <18 years of age. eGFR results are calculated without a race factor using the 2020 CKD-EPI equation. Careful clinical correlation is recommended, particularly when comparing to results calculated using previous equations. The CKD-EPI equation is less accurate in patients with extremes of muscle mass, extra-renal metabolism of creatine, excessive creatine ingestion, or following therapy that affects renal tubular secretion. Performed By: #### C P, PJ, IOCAL, PT, TRIG, MG, LIP, CDP #### [address] [id number] [employer] Caster: Prabhjot Gross MD Albumin [Mass/Vol] 3.0 g/dL Low 3.5-5.2 [facility] Comment on above: Performed By: #### C P, PJ, IOCAL, PT, TRIG, MG, LIP, CDP #### [address] [id number] [employer] Caster: Prabhjot Gross MD Albumin/Glob Ratio 1.3 Normal 1.0-2.5 [facility] Comment on above: Performed By: #### C P, PJ, IOCAL, PT, TRIG, MG, LIP, CDP #### [address] [id number] [place] Caster: Prabhjot Gross MD Alkaline Phos 208 U/L High 40-129 [facility] Comment on above: Performed By: #### C P, PJ, IOCAL, PT, TRIG, MG, LIP, CDP #### [address] [address] Iron Caster: Prabhjot Gross MD ALT [Catalytic activity/Vol] 105 U/L High 5-41 [facility] Comment on above: Performed By: #### C P, PJ, IOCAL, PT, TRIG, MG, LIP, CDP #### [address] [address] Iron Caster: Prabhjot Gross MD Anion gap [Moles/Vol] 10 mmol/L Normal 9-17 [facility] Comment on above: Performed By: #### C P, PJ, IOCAL, PT, TRIG, MG, LIP, CDP #### [address] [address] Iron Caster: Prabhjot Gross MD AST [Catalytic activity/Vol] 71 U/L High <40 [facility] Comment on above: Performed By: #### C P, PJ, IOCAL, PT, TRIG, MG, LIP, CDP #### [address] [address] Iron Caster: Prabhjot Gross MD Bilirubin [Mass/Vol] 8.1 mg/dL High 0.3-1.2 [facility] Comment on above: Performed By: #### C P, PJ, IOCAL, PT, TRIG, MG, LIP, CDP #### [address] [address] Iron Caster: Prabhjot Gross MD Calcium [Mass/Vol] 8.1 mg/dL Low 8.6-10.4 [facility] Comment on above: Performed By: #### C P, JP, IOCAL, PT, TRIG, MG, LIP, CDP #### [address] [address] Iron Caster: Prabhjot Gross MD Chloride [Moles/Vol] 105 mmol/L Normal 98-107 [facility] Comment on above: Performed By: #### C P, PJ, IOCAL, PT, TRIG, MG, LIP, CDP #### [address] [address] Iron Caster: Prabhjot Gross MD CO2 [Moles/Vol] 21 mmol/L Normal 20-31 [facility] Comment on above: Performed By: #### C P, PJ, IOCAL, PT, TRIG, MG, LIP, CDP #### [address] [address] Iron Caster: Prabhjot Gross MD Glucose [Mass/Vol] 112 mg/dL High 70-99 [facility] Comment on above: Performed By: #### C P, PJ, IOCAL, PT, TRIG, MG, LIP, CDP #### [facility] [address] [place] [id number] Iron Caster: Prabhjot Gross MD Potassium [Moles/Vol] 3.7 mmol/L Normal 3.7-5.3 [facility] Comment on above: Performed By: #### C P, PJ, IOCAL, PT, TRIG, MG, LIP, CDP #### [facility] [employer] [address] [place] [id number] Iron Caster: Prabhjot Gross MD Protein [Mass/Vol] 5.3 g/dL Low 6.4-8.3 [facility] Comment on above: Performed By: #### C P, PJ, IOCAL, PT, TRIG, MG, LIP, CDP #### [facility] [employer] [address] [place] [id number] Iron Caster: Prabhjot Gross MD Sodium [Moles/Vol] 136 mmol/L Normal 135-144 [facility] Comment on above: Performed By: #### C P, PJ, IOCAL, PT, TRIG, MG, LIP, CDP #### [facility] [employer] [address] [place] [phone] Iron Caster: Prabhjot Gross MD Urea nitrogen [Mass/Vol] 20 mg/dL Normal 8-23 [facility] Comment on above: Performed By: #### C P, PJ, IOCAL, PT, TRIG, MG, LIP, CDP #### [facility] [employer] [address] [place] [id number] Iron Caster: Prabhjot Gross MD Comprehensive Metabolic Pane [facility] 02-25-2023 Albumin [Mass/Vol] 3.0 g/dL Low 3.5 - 5.2 g/dL [facility] Albumin/Globulin [Mass ratio] 1.3 {ratio} 1.0 - 2.5 [facility] ALP [Catalytic activity/Vol] 208 U/L High 40 - 129 U/L [facility] ALT [Catalytic activity/Vol] 105 U/L High 5 - 41 U/L [facility] Anion gap [Moles/Vol] 10 mmol/L 9 - 17 mmol/L [facility] AST [Catalytic activity/Vol] 71 U/L High NINF - 40 U/L [facility] Bilirubin [Mass/Vol] 8.1 mg/dL High 0.3 - 1.2 mg/dL [facility] Calcium [Mass/Vol] 8.1 mg/dL Low 8.6 - 10.4 mg/dL [facility] Chloride [Moles/Vol] 105 mmol/L 98 - 107 mmol/L [facility] CO2 [Moles/Vol] 21 mmol/L 20 - 31 mmol/L [facility] Creatinine [Mass/Vol] 0.64 mg/dL Low 0.70 - 1.20 mg /dL [facility] Comment on above: ICTERIC SPECIMEN GFR/1.73 sq M.predicted MDRD (S/P/Bld) [Vol rate/Area] - PINF [facility] Comment on above: These results are not intended for use in patients <18 years of age. eGFR results are calculated without a race factor using the 2020 CKD-EPI equation. Careful clinical correlation is recommended, particularly when comparing to results calculated using previous equations. The CKD-EPI equation is less accurate in patients with extremes of muscle mass, extra-renal metabolism of creatine, excessive creatine ingestion, or following therapy that affects renal tubular secretion. Glucose [Mass/Vol] 112 mg/dL High 70 - 99 mg/dL [facility] Interpretation and review of laboratory results Abnormal [facility] Potassium [Moles/Vol] 3.7 mmol/L 3.7 - 5.3 mmol /L [facility] Protein [Mass/Vol] 5.3 g/dL Low 6.4 - 8.3 g/dL [facility] Sodium [Moles/Vol] 136 mmol/L 135 - 144 mmol/L [facility] Urea nitrogen [Mass/Vol] 20 mg/dL 8 - 23 mg/d L [facility] Lipaseon 02-25-2023 Lipase [Catalytic activity/Vol] 902 U/L High 13-6 0 [facility] Comment on above: Performed By: #### C P, PJ, IOCAL, PT, TRIG, MG, LIP, CDP #### [facility] [place] [address] Iron Caster: Prabhjot Gross MD Interpretation and review of laboratory results Abnormal [facility] Lipase [Catalytic activity/Vol] 902 U/L High 13 - 60 U/L [facility] MRI ABDOMEN WO CONTRAST MRCP on 02-25-2023 MRI ABDOMEN WO CONTRAST MRCP EXAMINATION: MRI OF THE ABDOMEN WITHOUT CONTRAST AND MRCP 02/25/2023 11:27 am TECHNIQUE: Multiplanar multisequence MRI of the abdomen was performed without the administration of intravenous contrast. After initial T2 axial and coronal images, thick slab, thin slab and 3D coronal MRCP sequences were obtained without the administration of intravenous contrast. MIP images are provided for review. COMPARISON: None HISTORY: ORDERING SYSTEM PROVIDED HISTORY: Transaminitis/pancreatitis/rule out biliary stone TECHNOLOGIST PROVIDED HISTORY: Transaminitis/pancreatitis/rule out biliary stone Reason for Exam: Transaminitis/pancreatitis/rule out biliary stone FINDINGS: MRCP images are limited due to respiratory motion contributing to artifact on reconstructed sequences. Gallbladder: The gallbladder is normally distended. No evidence of cholelithiasis. No inflammation. Bile Ducts: The intrahepatic biliary ducts appear normal. The common bile duct is also normal measuring 8 mm in diameter. No intraluminal filling defect or underlying stricture. Pancreatic Duct: Normal pancreatic duct. Other: None IMPRESSION: Unremarkable MRCP. Interpreted by: Chaitanya Trevino IV, MD Signed by: Chaitanya Trevino IV, MD 02/25/23 Final result Normal [facility] Unremarkable MRCP. [facility] RIS CONSOLIDATED EXAMINATION: MRI OF THE ABDOMEN WITHOUT CONTRAST AND MRCP 02/25/2023 11:27 am TECHNIQUE: Multiplanar multisequence MRI of the abdomen was performed without the administration of intravenous contrast. After initial T2 axial and coronal images, thick slab, thin slab and 3D coronal MRCP sequences were obtained without the administration of intravenous contrast. MIP images are provided for review. COMPARISON: None HISTORY: ORDERING SYSTEM PROVIDED HISTORY: Transaminitis/pancreatitis/rule out biliary stone TECHNOLOGIST PROVIDED HISTORY: Transaminitis/pancreatitis/rule out biliary stone Reason for Exam: Transaminitis/pancreatitis/rule out biliary stone FINDINGS: MRCP images are limited due to respiratory motion contributing to artifact on reconstructed sequences. Gallbladder: The gallbladder is normally distended. No evidence of cholelithiasis. No inflammation. Bile Ducts: The intrahepatic biliary ducts appear normal. The common bile duct is also normal measuring 8 mm in diameter. No intraluminal filling defect or underlying stricture. Pancreatic Duct: Normal pancreatic duct. Other: None [facility] Chaitanya Omalley IV, MD - 02/25/2023 EXAMINATION: MRI OF THE ABDOMEN WITHOUT CONTRAST AND MRCP 02/25/2023 11:27 am TECHNIQUE: Multiplanar multisequence MRI of the abdomen was performed without the administration of intravenous contrast. After initial T2 axial and coronal images, thick slab, thin slab and 3D coronal MRCP sequences were obtained without the administration of intravenous contrast. MIP images are provided for review. COMPARISON: None HISTORY: ORDERING SYSTEM PROVIDED HISTORY: Transaminitis/pancreatitis/rule out biliary stone TECHNOLOGIST PROVIDED HISTORY: Transaminitis/pancreatitis/rule out biliary stone Reason for Exam: Transaminitis/pancreatitis/rule out biliary stone FINDINGS: MRCP images are limited due to respiratory motion contributing to artifact on reconstructed sequences. Gallbladder: The gallbladder is normally distended. No evidence of cholelithiasis. No inflammation. Bile Ducts: The intrahepatic biliary ducts appear normal. The common bile duct is also normal measuring 8 mm in diameter. No intraluminal filling defect or underlying stricture. Pancreatic Duct: Normal pancreatic duct. Other: None IMPRESSION: Unremarkable MRCP. [facility] Radiology Study observation (narrative) [facility] MRI ABDOMEN WO CONTRAST MRCP Ordered By: Chaitanya Trevino on 02-25-2023 [facility] [employer] Work Phone: Magnesiumon 02-25-2023 Magnesium [Mass/Vol] 2.0 mg/dL Normal 1.6-2.6 [facility] Comment on above: Performed By: #### C P, PJ, IOCAL, PT, TRIG, MG, LIP, CDP #### [facility] [address] [place] [phone] Iron Caster: Prabhjot Gross MD Magnesium [Mass/Vol] 2.0 mg/dL 1.6 - 2.6 mg/dL [facility] No Panel Informationon 02-25 [facility] PTon 02-25-2023 INR Coag (PPP) [Relative time] 1.1 {INR} Normal [facility] Comment on above: Result Comment: Therapeutic Range: Moderate Anticoagulant Intensity: INR = 2.0-3.0 High Anticoagulant Intensity: INR = 2.5-3.5 Performed By: #### C P, PJ, IOCAL, PT, TRIG, MG, LIP, CDP #### [facility] [employer] [address] [place], [place] [id number] Iron Caster: Prabhjot Gross MD PT Coag (PPP) [Time] 14.1 s Normal 11.7-14.9 [facility] Comment on above: Performed By: #### C P, PJ, IOCAL, PT, TRIG, MG, LIP, CDP #### [facility] [employer] [address] [place], [place] [phone] Iron Caster: Prabhjot Gross MD Phosphoruson 02-25-2023 Phosphate [Mass/Vol] 2.6 mg/dL 2.5 - 4.5 mg/dL [facility] Phosphorus, Inorg.on 023 Phosphorus, Inorg. 2.6 mg/dL Normal 2.5-4.5 [facility] Comment on above: Performed By: #### C P, PJ, IOCAL, PT, TRIG, MG, LIP, CDP #### [facility] [employer] [address] [place] [phone] Iron Caster: Prabhjot Gross MD Protime-INRon 02-25-2023 INR Coag (PPP) [Relative time] 1.1 {INR} [facility] Comment on above: Therapeutic Range: Moderate Anticoagulant Intensity: INR = 2.0-3.0 High Anticoagulant Intensity: INR = 2.5-3.5 PT Coag (PPP) [Time] 14.1 s [facility] Triglycerideon 02-25-2023 Interpretation and review of laboratory results Abnormal [facility] Triglyceride [Mass/Vol] 159 mg/dL High NINF - 150 m g/dL [facility] Comment on above: Triglyceride Guidelines: <150 Desirable 150-199 Borderline 200-499 High >499 Very high Based on AHA Guidelines for fasting triglyceride, May 2012. Triglycerideson 02-25-2023 Triglyceride [Mass/Vol] 159 mg/dL High <150 [facility] Comment on above: Result Comment: Triglyceride Guidelines: <150 Desirable 150-199 Borderline 200-499 High >499 Very high Based on AHA Guidelines for fasting triglyceride, May 2012. Performed By: #### C P, PJ, IOCAL, PT, TRIG, MG, LIP, CDP #### [employer] [facility] [place] [id number] Iron Caster: Prabhjot Gross MD ED Note-Physicianon 04-19-20 ED Note-Physician [id number]:[address] [facility] Physician Referralon 022 Physician Referral [id number]:[address] [facility] RAD - CT Reporton 04-19-2022 RAD - CT Report [id number]:[address] [facility] US SINGLE QUAD RT UPPERon US SINGLE QUAD RT UPPER EXAM: Ultrasound of the right upper quadrant HISTORY: High enzyme level in serum . COMPARISON: None. TECHNIQUE: Hahn scale and color imaging was performed FINDINGS: The pancreas appears normal. Scanning of the liver demonstrates mild increased echogenicity of liver consistent with fatty infiltration of liver. Grossly no masses are noted. Color-flow is noted in the portal and hepatic veins. Common bile duct is normal measuring 5 mm. There is a small amount of sludge within the gallbladder. Small subcentimeter hyperechoic foci are noted within the gallbladder with shadowing consistent with small gallstones. Gallbladder wall measures 4 mm. Patient had no pain upon scanning over the gallbladder. Right kidney measures 11.7 x 5.9 x 4.8 cm. Color-flow is noted. No solid renal cortical masses or hydronephrosis is noted. No fluid is noted in the right upper quadrant. IMPRESSION: 1. Small amount of sludge within the gallbladder along with small sand-like gallstones. Gallbladder wall measures 4 mm. Patient had no pain upon scanning over the gallbladder. 2. Slight increased echogenicity of liver suggesting fatty infiltration of the liver. 3. The remainder the right upper quadrant was unremarkable. Electronically authenticated by: RAFAELA CALL Date: 2022-04-15 08:36 Normal [facility] l CBC AUTO DIFFon 04-06-2022 BASO # 0.0 103/ul Normal 0.0-0.1 [facility] Comment on above: Performed By: #### C BC #### [facility] [address] [place] [address] Dr. Nancy Gillis Basophils/100 WBC (Bld) 0.4 % Normal 0.2-2.0 [facility] Comment on above: Performed By: #### C BC #### [facility] [address] [place] [address] Dr. Nancy Gillis EO # 0.2 103/ul Normal 0.0-0.7 The [facility] Comment on above: Performed By: #### C BC #### [facility] [address] [place] [address] Dr. Nancy Gillis Eosinophils/100 WBC (Bld) 2.3 % Normal 0.9-7.0 [facility] Comment on above: Performed By: #### C BC #### [facility] [address] [place] [address] Dr. Nancy Gillis Erythrocyte distribution wid th (RBC) [Ratio] 13.2 % Normal 11.0-15.0 The [facility] Comment on above: Performed By: #### C BC #### [facility] [address] [place] [address] Dr. Nancy Gillis Hematocrit (Bld) [Volume fraction] 46.3 % Normal 4 2.0-54.0 [facility] Comment on above: Performed By: #### C BC #### [facility] [address] [place] [address] Dr. Nancy Gillis Hemoglobin (Bld) [Mass/Vol] 16.5 g/dL Normal 14.0-18. 0 [facility] Comment on above: Performed By: #### C BC #### [facility] [address] [place] [address] Dr. Nancy Gillis IG # 0.01 10e3/ul Normal 0.00-0.03 [facility] Comment on above: Performed By: #### C BC #### [facility] [address] [place] [address] Dr. Nancy Gillis IG % 0.1 % Normal 0.0-0.5 [facility] Comment on above: Performed By: #### C BC #### [facility] [address] [place] [address] Dr. Nancy Gillis LYMPH # 1.7 103/ul Normal 1.2-3.8 [facility] Comment on above: Performed By: #### C BC #### [facility] [address] [place] [address] Dr. Nancy Gillis Lymphocytes/100 WBC (Bld) 22.3 % Normal 20.5-60.0 [facility] Comment on above: Performed By: #### C BC #### [facility] [address] [place] [address] Dr. Nancy Gillis MANUAL DIFF REQ NO Normal [facility] [place] Comment on above: Performed By: #### C BC #### [facility] [address] [place] [address] Dr. Nancy Gillis MCH (RBC) [Entitic mass] 30.0 pg Normal 25.9-34.0 [facility] Comment on above: Performed By: #### C BC #### [facility] [address] [place] [address] Dr. Nancy Gillis MCHC (RBC) [Mass/Vol] 35.6 g/dL Critically high 29.9-35.2 [facility] Comment on above: Performed By: #### C BC #### [facility] [address] [place] [address] Dr. Nancy Gillis MCV (RBC) [Entitic vol] 84.2 fL Normal 80.0-94.0 [facility] Comment on above: Performed By: #### C BC #### [facility] [address] [place] [address] Dr. Nancy Gillis MONO # 0.5 103/ul Normal 0.3-0.8 [facility] Comment on above: Performed By: #### C BC #### [facility] [address] [place] [address] Dr. Nancy Gillis Monocytes/100 WBC (Bld) 6.2 % Normal 1.7-12.0 [facility] Comment on above: Performed By: #### C BC #### [facility] [address] [place] [address] Dr. Nancy Gillis NEUT # 5.2 103/ul Normal 1.4-6.5 [facility] Comment on above: Performed By: #### C BC #### [facility] [address] [place] [address] Dr. Nancy Gillis Neutrophils/100 WBC (Bld) 68.7 % Normal 43.0-75.0 [facility] Comment on above: Performed By: #### C BC #### [facility] [address] [place] [address] Dr. Nancy Gillis Platelet mean volume (Bld) [Entitic vol] 9.9 fL Normal 9.5-13.5 [facility] Comment on above: Performed By: #### C BC #### [facility] [address] [place] [address] Dr. Nancy Gillis PLT 185 103/ul Normal 150-450 [facility] Comment on above: Performed By: #### C BC #### [facility] [address] [place] [address] Dr. Nancy Gillis RBC 5.50 106/ul Normal 4.70-6.10 [facility] Comment on above: Performed By: #### C BC #### [facility] [address] [place], [place] [address] Dr. Nancy Gillis WBC 7.5 103/ul Normal 4.0-11.0 [facility] Comment on above: Performed By: #### C BC #### [facility] [address] [place], [place] [address] ABD/PELV W CONon 04-06-[address] ABD/PELV W CON CT ABDOMEN AND PELVI S WITH CONTRAST: INDICATION: Bilateral upper abdominal pain starting this morning. COMPARISON: None. TECHNIQUE: Helical CT images of the abdomen and pelvis were obtained after the administration of intravenous contrast. Dose reduction techniques were achieved by using automated exposure control and/or adjustment of mA and/or kV according to patient size and/or use of iterative reconstruction technique. FINDINGS: LOWER CHEST: Mild emphysematous changes. LIVER: Normal in size and attenuation. No focal lesions. GALLBLADDER AND BILIARY SYSTEM: Normal. SPLEEN: Mildly enlarged measuring 14 cm craniocaudad. PANCREAS: Normal. ADRENAL GLANDS: Normal. KIDNEYS AND URETERS: Normal. VASCULATURE: Normal. RETROPERITONEUM AND LYMPH NODES: Normal, with no lymphadenopathy. GASTROINTESTINAL TRACT/MESENTERY: There is a small amount of small bowel feces in the right lower abdomen but the bowel is normal in caliber. There is a moderate diverticulum off of a loop of small bowel in the right midabdomen on image 62 measuring 2.8 x 3 cm. A few additional diverticula are seen within the loop of small bowel in the right lower abdomen measuring up to 2.2 cm in size. Multiple diverticula are seen throughout the colon with no acute diverticulitis. Normal mesentery/peritoneum. Normal appendix. BLADDER: Underdistended but no significant abnormality. REPRODUCTIVE SYSTEM: Normal prostate. BODY WALL: Normal. BONES: Moderate to severe multilevel degenerative changes of the thoracolumbar spine. There is evidence of DISH in the lower thoracic and upper lumbar spine with bridging anterior osteophytes. IMPRESSION: 1. No acute process in the abdomen or pelvis. 2. Several small bowel diverticula. Mild small bowel feces is also noted but the small bowel is normal in caliber. 3. Colonic diverticulosis with no acute diverticulitis. 4. Emphysematous changes at the lung bases. 5. Splenomegaly. Electronically authenticated by: GORDO PINTO Date: 2022-04-06 18:02 Normal [facility] ER URINE PROFILEon 2 Bilirubin Ql (U) Negative Normal NEGATIVE [facility] Comment on above: Performed By: #### E RUR #### [facility] [address] [place] [address] Dr. Nancy Gillis Clarity (U) CLEAR Normal CLEAR [facility] Comment on above: Performed By: #### E RUR #### [facility] [address] [place] [address] Dr. Nancy Gillis Color (U) YELLOW Normal YELLOW [facility] Comment on above: Performed By: #### E RUR #### [facility] [address] [place] [address] Dr. Nancy Gillis ERUAHD A micrscopic examina tion will be performed if indicated. Normal [facility] l Comment on above: Performed By: #### E RUR #### [facility] [address] [place] [address] Dr. Nancy Gillis Glucose Ql (U) Negative Normal NEGATIVE [facility] Comment on above: Performed By: #### E RUR #### [facility] [address] [place] [address] Dr. Nancy Gillis Hemoglobin Ql (U) Negative Normal NEGATIVE [facility] Comment on above: Performed By: #### E RUR #### [facility] [address] [place] [address] Dr. Nancy Gillis Ketones Ql (U) Negative Normal NEGATIVE [facility] Comment on above: Performed By: #### E RUR #### [facility] [address] [place] [address] Dr. Nancy Gillis LEUKOCYTES Negative Normal NEGATIVE [facility] Comment on above: Performed By: #### E RUR #### [facility] [address] [place] [address] Dr. Nancy Gillis Nitrite Ql (U) Negative Normal NEGATIVE [facility] Comment on above: Performed By: #### E RUR #### [facility] [address] [place] [address] Dr. Nancy Gillis pH (U) 6.0 [pH] Normal 5-9 [facility] Comment on above: Performed By: #### E RUR #### [facility] [address] [place] [address] Dr. Nancy Gillis SPEC GRAVITY 1.025 Normal 1.005-<=1.025 [facility] Comment on above: Performed By: #### E RUR #### [facility] [address] [place] [address] Dr. Nancy Gillis UA PROTEIN Negative Normal NEGATIVE/ TRACE [facility] Comment on above: Performed By: #### E RUR #### [facility] [address] [place] [address] Dr. Nancy Gillis UR MICRO IND NOT INDICATED Normal [facility] Comment on above: Performed By: #### E RUR #### [facility] [address] [place] [address] Dr. Nancy Gillis Urobilinogen Qn (U) 8 {Lora'U}/dL Abnormal 0.2 - 1.0 [facility] Comment on above: Performed By: #### E RUR #### [facility] [address] [place] [address] Dr. Nancy Gillis LIPASEon 04-06-2022 Lipase [Catalytic activity/Vol] 84.0 U/L Normal 73.0 -393.0 [facility] Comment on above: Performed By: #### C MP, LIPA #### [facility] [address] [place] [address] Dr. Nancy Gillis PROF 14(COMP METB)on Albumin [Mass/Vol] 4.0 g/dL Normal 3.4-5.0 [facility] Comment on above: Performed By: #### C MP, LIPA #### [facility] [address] [place] [address] Dr. Nancy Gillis Albumin/Globulin [Mass ratio] 1.1 {ratio} Normal [facility] Comment on above: Performed By: #### C MP, LIPA #### [facility] [address] [address] [address] Nancy Gillis ALP [Catalytic activity/Vol] 117 U/L Critically high 46 -116 [facility] Comment on above: Performed By: #### C MP, LIPA #### [facility] [address] [address] [address] Nancy Gillis ALT [Catalytic activity/Vol] 30 U/L Normal 16-63 [facility] Comment on above: Performed By: #### C MP, LIPA #### [facility] [address] [place] [address] Dr. Nancy Gillis Anion gap [Moles/Vol] 10.6 mmol/L Normal [facility] Comment on above: Performed By: #### C MP, LIPA #### [facility] [address] [place] [address] Dr. Nancy Gillis AST [Catalytic activity/Vol] 27 U/L Normal 15-37 [facility] Comment on above: Performed By: #### C MP, LIPA #### [facility] [address] [address] [address] Nancy Gillis Bilirubin [Mass/Vol] 1.6 mg/dL Critically high 0.2-1.0 [facility] Comment on above: Performed By: #### C MP, LIPA #### [facility] [address] [place] [address] Dr. Nancy Gillis Calcium [Mass/Vol] 8.7 mg/dL Normal 8.5-10.1 [facility] Comment on above: Performed By: #### C MP, LIPA #### [facility] [address] [place] [address] Dr. Nancy Gillis Chloride [Moles/Vol] 98 mmol/L Normal 98-107 [facility] Comment on above: Performed By: #### C MP, LIPA #### [facility] [address] [place] [address] Dr. Nancy Gillis CO2 [Moles/Vol] 29.6 mmol/L Normal 21.0-32.0 [facility] Comment on above: Performed By: #### C MP, LIPA #### [facility] [address] [address] [address] Nancy Gillis Creatinine [Mass/Vol] 0.97 mg/dL Normal 0.70-1.30 [facility] Comment on above: Performed By: #### C MP, LIPA #### [facility] [address] [address] [address] Nancy Gillis EGFR-AF PERUVIAN >60 Normal >=60 [facility] Comment on above: Performed By: #### C MP, LIPA #### [facility] [address] [address] [address] Nancy Gillis EGFR-NON AF PERUVIAN >60 Normal >=60 [facility] Comment on above: Performed By: #### C MP, LIPA #### [facility] [address] [address] [address] Nancy Gillis Globulin (S) [Mass/Vol] 3.5 g/dL Normal [facility] Comment on above: Performed By: #### C MP, LIPA #### [facility] [address] [address] [address] Nancy Gillis Glucose [Mass/Vol] 158 mg/dL Critically high 74-106 [facility] Comment on above: Performed By: #### C MP, LIPA #### [facility] [address] [address] [address] Nancy Gillis Potassium [Moles/Vol] 3.2 mmol/L Critically low 3.5-5.1 [facility] Comment on above: Performed By: #### C MP, LIPA #### [facility] [address] [address] [address] Nancy Gillis Protein [Mass/Vol] 7.5 g/dL Normal 6.4-8.2 [facility] Comment on above: Performed By: #### C MP, LIPA #### [facility] [address] [address] [address] Nancy Gillis Sodium [Moles/Vol] 135 mmol/L Critically low 136-145 [facility] Comment on above: Performed By: #### C MP, LIPA #### [facility] [address] [place] [address] Dr. Nancy Gillis Urea nitrogen [Mass/Vol] 21.0 mg/dL Critically high 7.0-18 .0 [facility] Comment on above: Performed By: #### C MP, LIPA #### [facility] [address] [address] [address] Nancy Gillis Urea nitrogen/Creatinine [Mass ratio] 21.6 mg/mg Normal [facility] Comment on above: Performed By: #### C MARGAUX, LIPA #### [facility] [address] [address] [address] Nancy Deleon 01-14-2022 L Specimen: [id number] Received: 01/14/22 Status: JONO James Num: [id number] Spec Type: Surgical Subm Dr: Frank Rivas MD Tissues: A Colon - Polyp (SIGMOID POLYPS) Procedures: HE Stain/6, Gross/Micro L4 Patient Age/Sex Location Account Attending Physician Yael Contreras 71/M [id number] Frank Rivas MD SPEC NUM: [id number] RECD: 01/14/22 STATUS: JONO JAMES NUM: [id number] PAULA: 01/14/22 [facility] DR: Frank Rivas MD ENTERED: 01/14/[address] [facility] DR: WILLIAN TYPE: Surgical DEPT: S ORDERED: HE Stain/6, Gross/Micro L4 ORDERED: HE Stain/6, Gross/Micro L4 Pathological Diagnosis Sigmoid colon, biopsy: - Tubular adenoma Clinical Information STACIA Gross Description Received in 10% neutral buffered formalin, labeled with the patient's name, number and sigmoid polyps are 3 red tissue fragments ranging from 0.6 cm to 1.3 cm. The resection margins on the 2 largest tissue fragments are inked black and each fragment is bisected. Entirely submitted in three cassettes labeled A1-A3. (SM/JS) Microscopic Description Six glass slides with H E stained material have been examined. The microscopic findings support the above pathologic diagnosis. [id number] Specimen: [id number] Received: 01/14/22-1240 Status: JONO James Num: [id number] Spec Type: Surgical Subm Dr: Frank Rivas MD Tissues: A Colon - Polyp (SIGMOID POLYPS) Procedures: HE Stain/6, Gross/Micro L4 Patient: Yael Contreras [id number] (Continued) Signed (signature on file) Bhavik Carty MD 01/15/22 1909 [facility] COVID-19 Antigenon 2 COVID-19 Antigen Healthcare Worker?: N Reference Range: Negative Negative results, from patients with symptom onset beyond five days, should be treated as presumptive and confirmation with a molecular assay, if necessary, for patient management, may be performed. Negative results do not rule out COVID-19 and should not be used as the sole basis for treatment or patient management decisions, including infection control decisions. Negative results should be considered in the context of a patient's recent exposures, history and the presence of clinical signs and symptoms consistent with COVID-19. The Chrystal SARS Antigen MELANY does not differentiate between SARS-CoV and SARS-CoV-2. This test was developed and its performance characteristic determined by [employer] and validated at [facility]. This test has not been FDA cleared or approved. This test has been authorized by FDA under an Emergency Use Authorization (EUA). This test has been validated in accordance with the FDA's Guidance Document (Policy for Diagnostics Testing in Laboratories Certified to Perform High Complexity Testing under CLIA prior to Emergency Use Authorization for Coronavirus Disease-2019 during the Public Health Emergency) issued on November 22, 2019. This test is only authorized for the duration of time the declaration that circumstances exist justifying the authorization of the emergency use of in vitro diagnostic tests for detection of SARS-CoV-2 virus and/or diagnosis of COVID-19 infection under section 564(b)(1) of the Act, 21 U.S.C. 360bbb-3(b)(1), unless the authorization is terminated or revoked sooner. SARS-CoV+SARS-CoV-2 (COVID-19) Ag [Presence] in Respiratory specimen by Rapid immunoassay Negative for SARS Antigen by MELANY PERFORMED BY: [place] [address] PATH[employer] BHAVIK CARTY M.D. Normal [facility] Comment on above: Performed By: #### C OVID-19 CHRYSTAL, SOFIANEG #### [address] COVID-19 SOFIAOrdered By: Vida Rivas on 01-12-2022 SARS-CoV+SARS-CoV-2 (COVID-1 9) Ag IA.rapid Ql (Resp) Negative Negative [facility] Comment on above: This is a duplicate Chrystal SARS Antigen (MELANY) result to be used for statistical tracking purpose only. No Panel InformationOrdered By: Frank Rivas on 01-12-2022 SARS Antigen (LFIA) [facility] Chrystal Ag Negativeon 01-13-20 22 Chrystal Ag Negative Negative Normal Negative [facility] Comment on above: Result Comment: This is a duplicate Chrystal SARS Antigen (MELANY) result to be used for statistical tracking purpose only. PERFORMED BY: [place] [address] PATHOLOGIST [employer] BHAVIK CARTY M.D. Performed By: #### C OVID-19 CHRYSTAL, SOFIANEG #### [address] PROF CHEM 8 (BAS METB)on Anion gap [Moles/Vol] 10.2 mmol/L Normal [facility] Comment on above: Performed By: #### B MP #### [facility] [address] [address] [address] Nancy Gillis Calcium [Mass/Vol] 8.8 mg/dL Normal 8.5-10.1 [facility] Comment on above: Performed By: #### B MP #### [facility] [address] [address] [address] Nancy Gillis Chloride [Moles/Vol] 99 mmol/L Normal 98-107 [facility] Comment on above: Performed By: #### B MP #### [facility] [address] [address] [address] Nancy Gillis CO2 [Moles/Vol] 30.4 mmol/L Normal 21.0-32.0 [facility] Comment on above: Performed By: #### B MP #### [facility] [address] [address] [address] Nancy Gillis Creatinine [Mass/Vol] 0.92 mg/dL Normal 0.70-1.30 [facility] Comment on above: Performed By: #### B MP #### [facility] [address] [address] [address] Nancy Gillis EGFR-AF PERUVIAN >60 Normal >=60 [facility] Comment on above: Performed By: #### B MP #### [facility] [address] [address] [address] Nancy Gillis EGFR-NON AF PERUVIAN >60 Normal >=60 [facility] Comment on above: Performed By: #### B MP #### [facility] [address] [address] [address] Nancy Gillis Glucose [Mass/Vol] 128 mg/dL Critically high 74-106 [facility] Comment on above: Performed By: #### B MP #### [facility] [address] [address] [address] Nancy Gillis Potassium [Moles/Vol] 3.6 mmol/L Normal 3.5-5.1 [facility] Comment on above: Performed By: #### B MP #### [facility] [address] [address] [address] Nancy Gillis Sodium [Moles/Vol] 136 mmol/L Normal 136-145 [facility] Comment on above: Performed By: #### B MP #### [facility] [address] [address] [address] Nancy Gillis Urea nitrogen [Mass/Vol] 13.0 mg/dL Normal 7.0-18.0 [facility] Comment on above: Performed By: #### B MP #### [facility] [address] [address] [address] Nancy Gillis Urea nitrogen/Creatinine [Mass ratio] 14.1 mg/mg Normal [facility] Comment on above: Performed By: #### B MP #### [facility] [address] [address] [address] Nancy Gillis CULTURE URINEon 12-15-2021 CULTURE URINE Isolate 1 Klebsiella pneumoniae >100,000 cfu/ml of ORGANISM 1 Klebsiella pneumoniae ANTIBIOTIC M.I.C RX STATUS Ampicillin >=32 R F Ampicillin/Sulbactam 4 S F Piperacillin/Tazobactam <=4 S F Cefazolin <=4 S F Ceftazidime <=1 S F Ceftriaxone <=1 S F Ertapenem <=0.5 S F Imipenem <=0.25 S F Amikacin <=2 S F Gentamicin <=1 S F Tobramycin <=1 S F Ciprofloxacin <=0.25 S F Levofloxacin <=0.12 S F Nitrofurantoin 64 I F Trimethoprim/Sulfamethoxazole <=20 S F Normal [facility] Comment on above: Performed By: #### C MP, LIPA #### [facility] [address] [place] [address] Dr. Nancy Gillis BILIRUBIN CONJUGATED (DIRECT )on 12-13-2021 BILI, CONJUGATED 1.0 mg/dL Critically high 0.0-0.2 [facility] Comment on above: Performed By: #### D NOLVIA #### [facility] [address] [place] [address] Dr. Nancy Gillis BNPon 12-13-2021 Natriuretic peptide B (Bld) [Mass/Vol] 29.0 pg/mL Normal <=900.0 [facility] Comment on above: Performed By: #### C MARGAUX, LIPA #### [facility] [address] [place] [address] Dr. Nancy Gillis CBC AUTO DIFFon 12-13-2021 BASO # 0.0 103/ul Normal 0.0-0.1 [facility] Comment on above: Performed By: #### C MARGAUX, LIPA #### [facility] [address] [place] [address] Dr. Nancy Gillis Basophils/100 WBC (Bld) 0.2 % Normal 0.2-2.0 [facility] Comment on above: Performed By: #### C MARGAUX, LIPA #### [facility] [address] [place] [address] Dr. Nancy Gillis EO # 0.1 103/ul Normal 0.0-0.7 [facility] Comment on above: Performed By: #### C MP, LIPA #### [facility] [address] [place] [address] Dr. Nancy Gillis Eosinophils/100 WBC (Bld) 0.9 % Normal 0.9-7.0 [facility] Comment on above: Performed By: #### C MP, LIPA #### [facility] [address] [place] [address] Dr. Nancy Gillis Erythrocyte distribution wid th (RBC) [Ratio] 13.3 % Normal 11.0-15.0 [facility] Comment on above: Performed By: #### C MP, LIPA #### [facility] [address] [place] [address] Dr. Nancy Gillis Hematocrit (Bld) [Volume fraction] 40.7 % Critically low 42.0-54.0 [facility] Comment on above: Performed By: #### C MP, LIPA #### [facility] [address] [place] [address] Dr. Nancy Gillis Hemoglobin (Bld) [Mass/Vol] 14.4 g/dL Normal 14.0-18. 0 [facility] Comment on above: Performed By: #### C MP, LIPA #### [facility] [address] [place] [address] Dr. Nancy Gillis IG # 0.04 10e3/ul Critically high 0.00-0.03 [facility] Comment on above: Performed By: #### C MP, LIPA #### [facility] [address] [place] [address] Dr. Nancy Gillis IG % 0.3 % Normal 0.0-0.5 The [facility] Comment on above: Performed By: #### C MP, LIPA #### [facility] [address] [place] [address] Dr. Nancy Gillis LYMPH # 1.4 103/ul Normal 1.2-3.8 [facility] Comment on above: Performed By: #### C MP, LIPA #### [facility] [address] [place] [address] Dr. Nancy Gillis Lymphocytes/100 WBC (Bld) 11.3 % Critically low 20.5-6 0.0 [facility] Comment on above: Performed By: #### C MP, LIPA #### [facility] [address] [place] [address] Dr. Nancy Gillis MANUAL DIFF REQ NO Normal [facility] Comment on above: Performed By: #### C MP, LIPA #### [facility] [address] [place] [address] Dr. Nancy Gillis MCH (RBC) [Entitic mass] 30.2 pg Normal 25.9-34.0 [facility] Comment on above: Performed By: #### C MP, LIPA #### [facility] [address] [place] [address] Dr. Nancy Gillis MCHC (RBC) [Mass/Vol] 35.4 g/dL Critically high 29.9-35.2 [facility] Comment on above: Performed By: #### C MP, LIPA #### [facility] [address] [place] [address] Dr. Nancy Gillis MCV (RBC) [Entitic vol] 85.3 fL Normal 80.0-94.0 [facility] Comment on above: Performed By: #### C MP, LIPA #### [facility] [address] [place] [address] Dr. Nancy Gillis MONO # 1.3 103/ul Critically high 0.3-0.8 [facility] Comment on above: Performed By: #### C MP, LIPA #### [facility] [address] [place] [address] Dr. Nancy Gillis Monocytes/100 WBC (Bld) 10.4 % Normal 1.7-12.0 [facility] Comment on above: Performed By: #### C MP, LIPA #### [facility] [address] [place] [address] Dr. Nancy Gillis NEUT # 9.4 103/ul Critically high 1.4-6.5 [facility] Comment on above: Performed By: #### C MP, LIPA #### [facility] [address] [place] [address] Dr. Nancy Gillis Neutrophils/100 WBC (Bld) 76.9 % Critically high 43.0- 75.0 [facility] Comment on above: Performed By: #### C MP, LIPA #### [facility] [address] [place] [address] Dr. Nancy Gillis Platelet mean volume (Bld) [ Entitic vol] 10.6 fL Normal 9.5-13.5 The [facility] Comment on above: Performed By: #### C MP, LIPA #### [facility] [address] [place] [address] Dr. Nancy Gillis PLT 145 103/ul Critically low 150-450 The [facility] Comment on above: Performed By: #### C MP, LIPA #### [facility] [address] [place] [address] Dr. Nancy Gillis RBC 4.77 106/ul Normal 4.70-6.10 [facility] Comment on above: Performed By: #### C MP, LIPA #### [facility] [address] [place] [address] Dr. Nanyc Gillis WBC 12.3 103/ul Critically high 4.0-11.0 The [facility] Comment on above: Performed By: #### C MP, LIPA #### [facility] [address] [place] [address] Dr. Nancy Gillis CULTURE BLOODon 12-13-2021 Microscopic examination of blood, culture Culture Observations: NO GROWTH AT 5 DAYS Normal The [facility] Comment on above: Performed By: #### C MP, LIPA #### [facility] [address] [place] [address] Dr. Nancy Gillis Microscopic examination of blood, culture Culture Observations: NO GROWTH AT 5 DAYS Normal [facility] Comment on above: Performed By: #### C MP, LIPA #### [facility] [address] [place] [address] Dr. Nancy Gillis ER URINE PROFILEon 2 Bilirubin Ql (U) Negative Normal NEGATIVE [facility] Comment on above: Performed By: #### U MICRO, ERUR #### [facility] [address] [place] [address] Dr. Nancy Gillis Clarity (U) CLEAR Normal CLEAR [facility] Comment on above: Performed By: #### U MICRO, ERUR #### [facility] [address] [place] [address] Dr. Nancy Gillis Color (U) YELLOW Normal YELLOW [facility] Comment on above: Performed By: #### U MICRO, ERUR #### [facility] [address] [place], [place] [id number] Dr. Nancy JAVIER A micrscopic examina tion will be performed if indicated. Normal The [facility] l Comment on above: Performed By: #### U MICRO, ERUR #### [facility] [address] [place] [address] Dr. Nancy Gillis Glucose Ql (U) Negative Normal NEGATIVE [facility] Comment on above: Performed By: #### U MICRO, ERUR #### [facility] [address] [address] [address] Nancy Gillis Hemoglobin Ql (U) TRACE-INTACT Abnormal NEGATIVE [facility] Comment on above: Performed By: #### U MICRO, ERUR #### [facility] [address] [place] [address] Dr. Nancy Gillis Ketones Ql (U) Negative Normal NEGATIVE [facility] Comment on above: Performed By: #### U MICRO, ERUR #### [facility] [address] [place] [address] Dr. Nancy Gillis LEUKOCYTES SMALL Abnormal NEGATIVE [facility] Comment on above: Performed By: #### U MICRO, ERUR #### [facility] [address] [place] [address] Dr. Nancy Gillis Nitrite Ql (U) Negative Normal NEGATIVE [facility] Comment on above: Performed By: #### U MICRO, ERUR #### [facility] [address] [place] [address] Dr. Nancy Gillis pH (U) 7.0 [pH] Normal 5-9 [facility] Comment on above: Performed By: #### U MICRO, ERUR #### [facility] [address] [address] [address] Nancy Gillis SPEC GRAVITY 1.010 Normal 1.005-<=1.025 The [facility] Comment on above: Performed By: #### U MICRO, ERUR #### [facility] [address] [place] [address] Dr. Nancy Gillis UA PROTEIN Negative Normal NEGATIVE/ TRACE [facility] Comment on above: Performed By: #### U MICRO, ERUR #### [facility] [address] [place] [address] Dr. Nancy Gillis UR MICRO IND INDICATED Normal [facility] Comment on above: Performed By: #### U MICRO, ERUR #### [facility] [address] [place] [address] Dr. Nancy Gillis Urobilinogen Qn (U) 8 {Lora'U}/dL Abnormal 0.2 - 1.0 [facility] Comment on above: Performed By: #### U MICRO, ERUR #### [facility] [address] [place] [address] Dr. Nancy Gillis LACTATE/LACTIC ACIDon 2021 Lactate [Moles/Vol] 1.4 mmol/L Normal 0.4-2.0 [facility] Comment on above: Performed By: #### L ACT #### [facility] [address] [place] [address] Dr. Nancy Gillis PROF 14(COMP METB)on 022 Albumin [Mass/Vol] 3.2 g/dL Critically low 3.4-5.0 [facility] Comment on above: Performed By: #### C MP, LIPA #### [facility] [address] [place] [address] Dr. Nancy Gillis Albumin/Globulin [Mass ratio] 0.9 {ratio} Normal [facility] Comment on above: Performed By: #### C MP, LIPA #### [facility] [address] [place] [address] Dr. Nancy Gillis ALP [Catalytic activity/Vol] 97 U/L Normal 46-116 [facility] Comment on above: Performed By: #### C MP, LIPA #### [facility] [address] [place] [address] Dr. Nancy Gillis ALT [Catalytic activity/Vol] 26 U/L Normal 16-63 [facility] Comment on above: Performed By: #### C MP, LIPA #### [facility] [address] [place] [address] Dr. Nancy Gillis Anion gap [Moles/Vol] 13.2 mmol/L Normal [facility] Comment on above: Performed By: #### C MP, LIPA #### [facility] [address] [place] [address] Dr. Nancy Gillis AST [Catalytic activity/Vol] 21 U/L Normal 15-37 [facility] Comment on above: Performed By: #### C MP, LIPA #### [facility] [address] [place] [address] Dr. Nancy Gillis Bilirubin [Mass/Vol] 3.8 mg/dL Critically high 0.2-1.0 [facility] Comment on above: Performed By: #### C MP, LIPA #### [facility] [address] [place] [address] Dr. Nancy Gillis Calcium [Mass/Vol] 7.9 mg/dL Critically low 8.5-10.1 [facility] [facility] [place] Comment on above: Performed By: #### C MP, LIPA #### [facility] [address] [place] [address] Dr. Nancy Gillis Chloride [Moles/Vol] 99 mmol/L Normal 98-107 [facility] Comment on above: Performed By: #### C MP, LIPA #### [facility] [address] [place] [address] Dr. Nancy Gillis CO2 [Moles/Vol] 26.0 mmol/L Normal 21.0-32.0 [facility] Comment on above: Performed By: #### C MP, LIPA #### [facility] [address] [place] [address] Dr. Nancy Gillis Creatinine [Mass/Vol] 1.12 mg/dL Normal 0.70-1.30 [facility] Comment on above: Performed By: #### C MP, LIPA #### [facility] [address] [place] [address] Dr. Nancy Gillis EGFR-AF PERUVIAN >60 Normal >=60 [facility] Comment on above: Performed By: #### C MP, LIPA #### [facility] [address] [place] [address] Dr. Nancy Gillis EGFR-NON AF PERUVIAN >60 Normal >=60 [facility] Comment on above: Performed By: #### C MP, LIPA #### [facility] [address] [place] [address] Dr. Nancy Gillis Globulin (S) [Mass/Vol] 3.5 g/dL Normal [facility] Comment on above: Performed By: #### C MP, LIPA #### [facility] [address] [place] [address] Dr. Nancy Gillis Glucose [Mass/Vol] 122 mg/dL Critically high 74-106 [facility] Comment on above: Performed By: #### C MP, LIPA #### [facility] [address] [place] [address] Dr. Nancy Gillis Potassium [Moles/Vol] 3.2 mmol/L Critically low 3.5-5.1 [facility] Comment on above: Performed By: #### C MP, LIPA #### [facility] [address] [place] [address] Dr. Nancy Gillis Protein [Mass/Vol] 6.7 g/dL Normal 6.1-8.2 [facility] Comment on above: Performed By: #### C MP, LIPA #### [facility] [address] [place] [address] Dr. Nancy Gillis Sodium [Moles/Vol] 135 mmol/L Critically low 136-145 [facility] [place] Comment on above: Performed By: #### C MP, LIPA #### [facility] [address] [place] [address] Dr. Nancy Gillis Urea nitrogen [Mass/Vol] 23.0 mg/dL Critically high 7.0-18 .0 [facility] Comment on above: Performed By: #### C MP, LIPA #### [facility] [address] [place] [address] Dr. Nancy Gillis Urea nitrogen/Creatinine [Mass ratio] 20.5 mg/mg Normal [facility] Comment on above: Performed By: #### C MP, LIPA #### [facility] [address] [place] [address] Dr. Nancy Gillis TROPONIN, HIGH SENSITIVITYon 12-13-2021 HSTROP 4.3 pg/mL Normal 4.0-76.1 [facility] Comment on above: Result Comment: CUT- OFF POINTS HAVE BEEN ESTABLISHED BASED ON THE FOURTH UNIVERSAL DEFINITIONS OF MYOCARDIAL INFARCTION. THE UPPER REFERENCE LIMIT (URL) OF TROPONIN, DEFINED THE 99TH PERCENTILE OF cTnI DISTRIBUTION IN A REFERENCE POPULATION, HAS BEEN CONFIRMED THE DECISION THRESHOLD FOR NM DIAGNOSIS. Performed By: #### C MP, LIPA #### [facility] [address] [place] [address] Dr. Nancy Gillis URINE MICROSCOPIC ONLYon BACTERIA LARGE Abnormal NONE SEEN [facility] Comment on above: Performed By: #### U MICRO, ERUR #### [facility] [address] [place] [address] Dr. Nancy Gillis Bacteria identified Cx Nom (U) INDICATED Normal [facility] Comment on above: Performed By: #### U MICRO, ERUR #### [facility] [address] [place] [address] Dr. Nancy Gillis CAST NONE SEEN Normal NONE SEEN [facility] Comment on above: Performed By: #### U MICRO, ERUR #### [facility] [address] [place] [address] Dr. Nancy Gillis Crystals LM Nom (Urine sed) NONE SEEN Normal NONE SEE N [facility] Comment on above: Performed By: #### U MICRO, ERUR #### [facility] [address] [place] [address] Dr. Nancy Gillis Epithelial cells LM Ql (Urine sed) FEW Abnormal N ONE SEEN /RARE [facility] Comment on above: Performed By: #### U MICRO, ERUR #### [facility] [address] [place] [address] Dr. Nancy Gillis MUCOUS NONE SEEN Normal NONE SEEN The [facility] ostal Comment on above: Performed By: #### U MICRO, ERUR #### [facility] [address] [place] [address] Dr. Nancy Gillis RBC 5-10 Abnormal 0-2 [facility] Comment on above: Performed By: #### U MICRO, ERUR #### [facility] [address], [place] [address] Dr. Nancy Gillis WBC 20-50 Abnormal NONE SEEN [facility] Comment on above: Performed By: #### U MICRO, ERUR #### [facility] [address] [place], [place] [address] Dr. Nancy Gillis XR CHEST 1 Von 12-13-2021 XR CHEST 1 V EXAMINATION: XR CHES T 1 V HISTORY: Attacks of weakness COMPARISON: No relevant comparison available. TECHNIQUE: FINDINGS: LUNGS: No significant pulmonary parenchymal abnormalities. VASCULATURE: No increased pulmonary vasculature. PLEURA: No pneumothorax, effusion, or pleural thickening. CARDIAC: No cardiomegaly or cardiac silhouette abnormality. MEDIASTINUM: No visible mass or adenopathy. BONES: Mild degenerative disc disease and spondylosis without visible acute abnormalities. OTHER: Negative. IMPRESSION: No acute disease. Electronically authenticated by: RAFAELA VALLECILLO Date: 2021-12-13 14:11 Normal [facility] Vital Signs Date Time Vital Sign Value Performing Clinician Faci lity 03-03-2023 07:35-0400 Body temperature 97.7 [degF] Ange Bergman MD Work Phone[facility] 03-03-2023 07:35-0400 Diastolic blood pressure 64 mm[Hg] Ange Bergman MD Work Phone: [facility] 03-03-2023 07:35-0400 Heart rate 71 /min Ange Bergman MD Work Phone: [facility] 03-03-2023 07:35-0400 Respiratory rate 14 /min Ange Bergman MD Work Phone: [facility] 03-03-2023 07:35-0400 SaO2% (BldA) [Mass fraction] 95 % Ange Bergman MD Work Phone: [facility] 03-03-2023 07:35-0400 Systolic blood pressure 109 mm[Hg] Ange Bergman MD Work Phone: [facility] 03-02-2023 05:21-0400 Body mass index (BMI) [Ratio] 31.7 kg/m2 Ange Bergman MD Work Phone: [facility] 03-02-2023 05:21-0400 Body weight 100.2 kg Ange Bergman MD Work Phone: [facility] 03-01-2023 14:15-0400 Body height 177.8 cm Ange Bergman MD Work Phone: [facility] 01-14-2022 12:24-0400 Diastolic blood pressure 78 mm[Hg] MD Frank Rivas Work Phone: [facility] 01-14-2022 12:24-0400 Heart rate 64 /min MD Frank Rivas Work Phone: [facility] 01-14-2022 12:24-0400 Respiratory rate 16 /min MD Frank Rivas Work Phone: [facility] 01-14-2022 12:24-0400 SaO2% (BldA) [Mass fraction] 97 % MD Frank Rivas Work Phone: [facility] 01-14-2022 12:24-0400 Systolic blood pressure 113 mm[Hg] MD Frank Rivas Work Phone: [facility] 01-14-2022 10:31-0400 Body height 177.8 cm MD Frank Rivas Work Phone: [facility] 01-14-2022 10:31-0400 Body mass index (BMI) [Ratio] 37.7 kg/m2 MD Frank Rivas Work Phone: [facility] 01-14-2022 10:31-0400 Body temperature 98.4 [degF] MD Frank Rivas Work Phone: [facility] 01-14-2022 10:31-0400 Body weight 119.29 kg MD Frank Rivas Work Phone: [facility] Encounters Encounter Date Encounter Type Care Provider Facility Start: 02-24-2023 End: 03-03-2023 Evaluation and management of inpatient [facility] Start: 02-24-2023 End: 03-03-2023 Evaluation and management of inpatient Ange Bergman MD Work Phone: [address] Ortho/Med Surg Comment on above: Acute cholecystitis due to biliary calculus Start: 04-15-2022 End: 04-16-2022 ambulatory JIMENES H FAWWAD Facility:[facility]1 Start: 04-06-2022 End: 04-06-2022 ambulatory JIMENES H FAWWAD Facility:[facility] Start: 01-14-2022 End: 01-14-2022 Admission to same day surgery center MD Frank Rivas Work Phone: [facility] Start: 01-12-2022 End: 01-12-2022 Patient encounter procedure MD Frank Rivas Work Phone: [facility] Start: 12-16-2021 End: 12-17-2021 ambulatory JIMENES H FAWWAD Facility:[facility] Start: 12-13-2021 End: 12-13-2021 ambulatory JIMENES H FAWWAD Facility:[facility] Procedures Date Procedure Procedure Detail Performing Clinician Start: 03-03-2023 Hepatic function panel Susanne Raman [employer] - [employer] Work Phone: Start: 03-02-2023 Assay of magnesium Henry Loepz MD Work Phone: Start: 03-02-2023 COMPREHENSIVE METABO LIC W/ BILI PROFILE W/ REFLEX TO MG Tomás Lopez MD Work Phone: Start: 03-01-2023 Assay of lipase Tomás Lopez MD Work Phone: Start: 03-01-2023 BASIC METABOLIC PANE L W/ REFLEX TO MG FOR LOW K Tomás Lopez MD Work Phone: Start: 03-01-2023 Hepatic function panel Annabel Wetzel DO Work Phone: Start: 02-28-2023 Fluoroscopy during operation Natasha Whitney MD Work Phone: Start: 02-28-2023 Fluoroscopy during operation Santo Woodruff MD Work Phone: Start: 02-28-2023 End: 02-28-2023 CHOLECYSTECTOMY LAPAROSCOPIC ROBOTIC Santo Woodruff MD Work Phone: Start: 02-28-2023 End: 02-28-2023 ERCP SPHINCTER/PAPILLOTOMY Santo Woodruff MD Work Phone: Start: 02-28-2023 End: 02-28-2023 ERCP STONE REMOVAL Santo lechuga MD Work Phone: Start: 02-28-2023 Blood count complete auto&auto difrntl wbc Tomás Lopez MD Work Phone: Start: 02-28-2023 COMPREHENSIVE METABO LIC W/ BILI PROFILE W/ REFLEX TO MG Tomás Lopez MD Work Phone: Start: 02-28-2023 SURGICAL PATHOLOGY REPORT Santo Woodruff MD Work Phone: Start: 02-27-2023 Assay of magnesium Elvira lie L Fallows DO Work Phone: Start: 02-27-2023 COMPREHENSIVE METABO LIC W/ BILI PROFILE W/ REFLEX TO MG Susanne L Fallows DO Work Phone: Start: 02-26-2023 Prothrombin time Tomás Lopez MD Work Phone: Start: 02-26-2023 Blood count complete auto&auto difrntl wbc Jewel A Karma [employer] INSPECTOR - [employer] WORK[employer] Work Phone: Start: 02-25-2023 Mri abdomen w/o cont rast material Jewel A Karma [employer]KES INSPECTOR - [employer] WORK[employer] Work Phone: Start: 02-25-2023 Comprehensive metabo lic panel Myrna Birmingham BRAKES INSPECTOR - [employer] WORKER Work Phone: Start: 01-14-2022 Diagnostic endoscopi c examination on colon MD Frank Rivas Work Phone: Start: 01-12-2022 SARS Antigen (LFIA) MD Frank Rivas Work Phone: Plan of Treatment Date Care Activity Detail Author Start: 11-15-2028 DTaP/Tdap/Td vaccine (2 - Td or Tdap) DTaP/Tdap/Td vaccine (2 - Td or Tdap) [facility] Start: 03-22-2023 Influenza vaccination Flu vaccine (# 1) [facility] Start: 02-25-2023 Annual Wellness Visi t (AWV) Annual Wellness Visit (AWV) [facility] Start: 1999 Shingles vaccine (1 of 2) Hernandez gles vaccine (1 of 2) [facility] Start: 1994 Screening for malign ant neoplasm of colon [facility] Start: 1989 Lipid panel Lipids [facility] Start: 1967 Hepatitis C screening Hepatitis C sc reen [facility] Start: 1961 Depression Screen Depression Screen [facility] [facility] Start: 1949 COVID-19 Vaccine (#1) COVID-19 Vacci ne (#1) [facility] End: 02-24-2023 Intermittent pulse oximetry Pulse Oximetry Spot Check Respiratory Care Routine One Time for 1 Occurrences starting 02/24/2023 until 02/24/2023 [facility] Comment on above: One Time for 1 Occur rences starting 02/24/2023 until 02/24/2023 Oxygen therapy [[facility] [place] Initiate Oxygen Therapy Protocol Respiratory Care Routine As Needed until discontinued starting 02/24/2023 [facility] Comment on above: As Needed until disc ontinued starting 02/24/2023 Patient Education Colon Polyps Diverticul osis (DC) [facility] Work Phone: Surgical Pathology Surgical Path ology Lab Routine Acute cholecystitis due to biliary calculus Release Upon Ordering for 1 Occurrences starting 02/28/2023 [facility] Comment on above: Release Upon Orderin g for 1 Occurrences starting 02/28/2023 Immunizations Immunization Date Immunization Notes Care Provider Andreas araujo 11-29-2020 COVID-19 mRNA-1273 (Moderna) MD Frank Rivas Work Phone: [facility] 11-01-2020 COVID-19 mRNA-1273 (Moderna) MD Frank Rivas Work Phone: [facility] Payers Date Payer Category Payer Medicare [id number] 1960 Private Health Insurance [id number] 1950 Unknown [id number] 1950 Unknown [id number] 1950 Unknown [id number] 1949 Unknown [id number] 1950 Unknown [id number] Medicare Medicare [id number] Private Health Insurance [facility] PFFS Non Pt [id number] Self-pay Self Pay [id number] Social History Date Type Detail Facility Tobacco smoking status NHIS Unknown if ever smoked [facility] Work Phone: Start: 1950 Sex Assigned At Male F [facility] Start: 01-14-2022 Tobacco smoking status [facility] Ex-smoker (finding) [facility] Tobacco smoking status [facility] Tobacco smoking consumption unknown [facility] Start: 1950 Sex Assigned At Not on file [facility] Medical Equipment Procedure Code Equipment Code Equipment Origin al Text Equipment Identifier Dates Clip Int L Polym er Willie Lig Hem O Willie - [id number] Start: 02-28-2023 Goals Date Patient Goal Desired Activity /State History of Present illness Narrative 03-03-2023 Nora De Anda MD - 03/03/2023 11:03 AM Julissa De Anda MD - 03/02/2023 11:11 AM Moriah Lopez DO - 03/02/2023 8:[address] - 03/01/2023 2:31 PM EDT Note Date & Type Note Facility 03-03-2023 History of Present illness Narrative Images from the original note were not included. [facility] Office: [phone] David Hanna DO, Teo Banuelos DO, Spenser Manrique DO, Brad Emanuel DO, Alexander Weiss MD, Giovanna Mathew MD, Cam Julio MD, Ange Bergman MD, Nora De Anda MD, Tomás Lopez MD, Atul Rossi DO, Jaya Boston MD, Karthik Robbins DO, Isaac Hale MD, Cole Larson MD, Jaylen Hanna DO, Candie Ellis MD, Jonas Pierre DO, Larisa Paul MD, Crystal Kelly MD, Jen Keys MD, Saulo Salomon MD, Zachariah Lawson MD, Penny Holliday MD, Aaron Salinas DO, Chetna Dyer MD, Palmer Cheney MD, Myrna Birmingham CNP, Raine Nash CNP, Gabrielle Houston CNP, Logan Lee CNP, Rochelle Chicas DNP, Katelyn Ramirez CNP, Jacqueline Ramirez CNP, Mary Garcia, GAMA, Rachel Lopez, GAMA, Stefany Ortega, GAMA, Luis Leal PA-C, ROSS Gibson, Agnes Martinez CNP, Anahi Nogueira CNP [facility] IN-PATIENT SERVICE [facility] Progress Note 03/03/2023 11:03 AM Name: Yael Contreras Acct: [id number] Room: [address] [place] [address] Day: 7 Admit Date: 02/24/2023 8:51 PM PCP: No primary care provider on file. Code Status: Full Code Subjective: C/C: abdominal pain Interval History Status: not changed. No issues overnight Pain controlled Asking when he can go home No other complaints Discussed with family at bedside Brief History: 72 years old gentleman who presented to the hospital from outside facility because of abdominal pain radiating to upper abdomen. CTs do not show acute process but he had elevated lipase. He was evaluated by GI and there was concern for gallstone pancreatitis. Patient underwent robotic cholecystectomy with intraoperative cholangiogram and ERCP with stone removal on 02/28/2023. Review of Systems: Constitutional: negative for chills, fevers, sweats Respiratory: negative for cough, dyspnea on exertion, shortness of breath, wheezing Cardiovascular: negative for chest pain, chest pressure/discomfort, lower extremity edema, palpitations Gastrointestinal: positive for abdominal pain Neurological: negative for dizziness, headache Medications: Allergies: No Known Allergies Current Meds: Scheduled Meds: acetaminophen 1,000 mg Oral 3 times per day methocarbamol 750 mg Oral Q6H hydroCHLOROthiazide 25 mg Oral Daily losartan 100 mg Oral Daily sodium chloride flush 5-40 mL IntraVENous 2 times per day enoxaparin 40 mg SubCUTAneous Daily Continuous Infusions: PRN Meds: oxyCODONE, dicyclomine, sodium chloride flush, potassium chloride, magnesium sulfate, ondansetron OR ondansetron Data: Past Medical History: has a past medical history of Hearing loss. Social History: Family History: History reviewed. No pertinent family history. Vitals: BP 109/64 Pulse 71 Temp 97.7 F (36.5 C) (Oral) Resp 14 Ht 5' 10 (1.778 m) Wt 220 lb 14.4 oz (100.2 kg) SpO2 95% BMI 31.70 kg/m Temp (24hrs), Av.7 F (36.5 C), Min:97.6 F (36.4 C), Max:97.7 F (36.5 C) No results for input(s): POCGLU in the last 72 hours. I/O (24Hr): No intake or output data in the 24 hours ending 03/03/23 1103 Labs: Hematology: Recent Labs 03/01/2392503/02/23717 WBC 8.3 7.4 RBC 4.34 4.15* HGB 13.4 12.7* HCT 39.3* 36.5* MCV 90.6 88.0 MCH 30.9 30.6 MCHC 34.1 34.8 RDW 13.6 13.7 PLT See Reflexed IPF Result See Reflexed IPF Result Chemistry: Recent Labs 03/01/2392503/02/23717 NA 136 137 K 4.0 3.5* CL 101 100 CO2 26 27 GLUCOSE 111* 106* BUN 10 10 CREATININE 0.8 0.8 MG -- 1.9 ANIONGAP 9 10 LABGLOM >60 >60 CALCIUM 8.8 8.6 Recent Labs 03/01/2392503/02/2371703/03/23 0457 PROT 5.8* 5.5* 6.1* LABALBU 3.3* 3.1* 2.8* AST 139* 89* 54* ALT 145* 117* 92* ALKPHOS 207* 181* 182* BILITOT 5.7* 5.3* 4.4* BILIDIR 4.1* 3.8* 2.9* LIPASE 28 -- -- ABG:No results found for: POCPH, PHART, PH, POCPCO2, YIS9DAH, PCO2, POCPO2, PO2ART, PO2, POCHCO3, NGQ0GAY, HCO3, NBEA, PBEA, BEART, BE, THGBART, THB, [id number], XOTC8ECI, W9TKPEDN, O2SAT, FIO2 No results found for: SPECIAL No results found for: CULTURE Radiology: MRI ABDOMEN WO CONTRAST MRCP Result Date: 02/25/2023 Unremarkable MRCP. Physical Examination: General appearance: alert, cooperative and no distress Mental Status: oriented to person, place and time and normal affect Lungs: clear to auscultation bilaterally, normal effort Heart: regular rate and rhythm Abdomen: soft, nontender, nondistended, normal bowel sounds Extremities: no edema, redness, tenderness in the calves Skin: no gross lesions, rashes, induration Assessment: Hospital Problems Last Modified POA * (Principal) Acute pancreatitis without infection or necrosis 02/25/2023 Yes Primary hypertension 02/25/2023 Yes Transaminitis 02/25/2023 Yes Hyperbilirubinemia 02/25/2023 Yes Elevated alkaline phosphatase level 02/25/2023 Yes Hearing loss 02/25/2023 Yes Acute cholecystitis due to biliary calculus 02/28/2023 Yes Plan: Gallstone pancreatitis-s/p robotic cholecystectomy with intraoperative cholangiogram and ERCP with stone removal on 02/28/2023. Continue to trend LFTs. Patient is on Zosyn Hypertension - continue home blood pressure medications including lisinopril and hydrochlorothiazide. Continue to monitor, pain control Disposition - DC planning today, cleared by surgery Nora De Anda MD 03/03/2023 11:03 AM Images from the original note were not included. [facility] Office: [phone] David Hanna DO, Teo Banuelos DO, Spenser Manrique DO, Brad Emanuel DO, Alexander Weiss MD, Giovanna Mathew MD, Cam Julio MD, Ange Bergman MD, Nora De Anda MD, Tomás Lopez MD, Atul Rossi DO, Jaya Boston MD, Karthik Robbins DO, Isaac Hale MD, Cole Larson MD, Jaylen Hanna DO, Candie Ellis MD, Jonas Pierre DO, Larisa Paul MD, Crystal Kelly MD, Jen Keys MD, Saulo Salomon MD, Zachariah Lawson MD, Penny Holliday MD, Aaron Salinas DO, Chetna Dyer MD, Palmer Cheney MD, Myrna Birmingham, GAMA, Raine Nash CNP, Gabrielle Houston CNP, Logan Lee CNP, Rochelle Chicas DNP, Katelyn Ramirez, GAMA, Jacqueline Ramirez, GAMA, Mary Garcia, TOUCH UP WORKER, Rachel Lopez, GAMA, Stefany Ortega, GAMA, Luis Leal PA-C, Roshni Knapp, [facility], Agnes Martinez, GAMA, Anahi Nogueira, GAMA [facility] IN-PATIENT SERVICE [facility] Progress Note 03/02/2023 11:11 AM Name: Yael Contreras Acct: [id number] Room: 0239/0239-01 Day: 6 Admit Date: 02/24/2023 8:51 PM PCP: No primary care provider on file. Code Status: Full Code Subjective: C/C: abdominal pain Interval History Status: not changed. No issues overnight Pain controlled Asking when he can go home No other complaints Brief History: 72 years old gentleman who presented to the hospital from outside facility because of abdominal pain radiating to upper abdomen. CTs do not show acute process but he had elevated lipase. He was evaluated by GI and there was concern for gallstone pancreatitis. Patient underwent robotic cholecystectomy with intraoperative cholangiogram and ERCP with stone removal on 02/28/2023. Review of Systems: Constitutional: negative for chills, fevers, sweats Respiratory: negative for cough, dyspnea on exertion, shortness of breath, wheezing Cardiovascular: negative for chest pain, chest pressure/discomfort, lower extremity edema, palpitations Gastrointestinal: positive for abdominal pain Neurological: negative for dizziness, headache Medications: Allergies: No Known Allergies Current Meds: Scheduled Meds: acetaminophen 1,000 mg Oral 3 times per day methocarbamol 750 mg Oral Q6H piperacillin-tazobactam 3,375 mg IntraVENous Q8H hydroCHLOROthiazide 25 mg Oral Daily losartan 100 mg Oral Daily sodium chloride flush 5-40 mL IntraVENous 2 times per day enoxaparin 40 mg SubCUTAneous Daily Continuous Infusions: PRN Meds: oxyCODONE, dicyclomine, sodium chloride flush, potassium chloride, magnesium sulfate, ondansetron OR ondansetron Data: Past Medical History: has a past medical history of Hearing loss. Social History: Family History: History reviewed. No pertinent family history. Vitals: BP 115/74 Pulse 63 Temp 97.7 F (36.5 C) (Oral) Resp 17 Ht 5' 10 (1.778 m) Wt 220 lb 14.4 oz (100.2 kg) SpO2 94% BMI 31.70 kg/m Temp (24hrs), Av.1 F (36.7 C), Min:97.7 F (36.5 C), Max:98.4 F (36.9 C) No results for input(s): POCGLU in the last 72 hours. I/O (24Hr): No intake or output data in the 24 hours ending 03/02/23 1111 Labs: Hematology: Recent Labs 02/28/2360703/01/2392503/02/23717 WBC 4.6 8.3 7.4 RBC 4.69 4.34 4.15* HGB 14.2 13.4 12.7* HCT 40.2* 39.3* 36.5* MCV 85.7 90.6 88.0 MCH 30.3 30.9 30.6 MCHC 35.3* 34.1 34.8 RDW 13.0 13.6 13.7 PLT See Reflexed IPF Result See Reflexed IPF Result See Reflexed IPF Result Chemistry: Recent Labs 02/28/2360703/01/2392503/02/23717 NA 136 136 137 K 3.9 4.0 3.5* CL 103 101 100 CO2 21 26 27 GLUCOSE 100* 111* 106* BUN 9 10 10 CREATININE 0.7 0.8 0.8 MG -- -- 1.9 ANIONGAP 12 9 10 LABGLOM >60 >60 >60 CALCIUM 9.0 8.8 8.6 Recent Labs 02/28/2308 03/01/23 0903/02/23 0718 PROT 6.1* 5.8* 5.5* LABALBU 3.4* 3.3* 3.1* AST 64* 139* 89* ALT 80* 145* 117* ALKPHOS 228* 207* 181* BILITOT 5.4* 5.7* 5.3* BILIDIR 3.8* 4.1* 3.8* LIPASE -- 28 -- ABG:No results found for: POCPH, PHART, PH, POCPCO2, LMU9CSS, PCO2, POCPO2, PO2ART, PO2, POCHCO3, ZYH2EER, HCO3, NBEA, PBEA, BEART, BE, THGBART, THB, PJU8DOR, EVMI2MOA, P7OSICNE, O2SAT, FIO2 No results found for: SPECIAL No results found for: CULTURE Radiology: MRI ABDOMEN WO CONTRAST MRCP Result Date: 02/25/2023 Unremarkable MRCP. Physical Examination: General appearance: alert, cooperative and no distress Mental Status: oriented to person, place and time and normal affect Lungs: clear to auscultation bilaterally, normal effort Heart: regular rate and rhythm Abdomen: soft, nontender, nondistended, normal bowel sounds Extremities: no edema, redness, tenderness in the calves Skin: no gross lesions, rashes, induration Assessment: Hospital Problems Last Modified POA * (Principal) Acute pancreatitis without infection or necrosis 02/25/2023 Yes Primary hypertension 02/25/2023 Yes Transaminitis 02/25/2023 Yes Hyperbilirubinemia 02/25/2023 Yes Elevated alkaline phosphatase level 02/25/2023 Yes Hearing loss 02/25/2023 Yes Acute cholecystitis due to biliary calculus 02/28/2023 Yes Plan: Gallstone pancreatitis-s/p robotic cholecystectomy with intraoperative cholangiogram and ERCP with stone removal on 02/28/2023. Continue to trend LFTs. Patient is on Zosyn Hypertension - continue home blood pressure medications including lisinopril and hydrochlorothiazide. Continue to monitor, pain control Disposition - DC planning when cleared by surgery Nora De Anda MD 03/02/2023 11:11 AM Images from the original note were not included. PROGRESS NOTE PATIENT NAME: Yael Contreras DATE: 03/02/2023 HD: # 6 Patient Active Problem List Diagnosis Acute pancreatitis without infection or necrosis Primary hypertension Transaminitis Hyperbilirubinemia Elevated alkaline phosphatase level Hearing loss Acute cholecystitis due to biliary calculus DIAGNOSIS AND PLAN Gallstone pancreatitis S/p robotic lap jerri and ERCP Okay for regular diet Continue zosyn Recommend Tylenol, robaxin, jovanni prn for pain Looks like hepatic function numbers are starting to downtrend however still quite elevated, would recommend staying in hospital 1 more night, would also recommend GI revisit SUBJECTIVE Patient seen and examined at bedside. States he is doing okay, pain is controlled. Denies nausea or emesis. Tolerating some p.o. Passing flatus. No BM OBJECTIVE VITALS: Vitals: 03/02/23 0700 BP: 115/74 Pulse: 63 Resp: 17 Temp: 97.7 F (36.5 C) SpO2: 94% Physical Exam Constitutional: General: He is awake. HENT: Head: Normocephalic. Eyes: Extraocular Movements: Extraocular movements intact. Pupils: Pupils are equal, round, and reactive to light. Cardiovascular: Rate and Rhythm: Normal rate and regular rhythm. Pulses: Normal pulses. Pulmonary: Effort: Pulmonary effort is normal. No respiratory distress. Breath sounds: No stridor. Abdominal: General: Abdomen is flat. Palpations: Abdomen is soft. Tenderness: There is abdominal tenderness (mild RUQ and midepigastric) in the left upper quadrant. Comments: Surgical incisions well approximated Musculoskeletal: General: No swelling. Normal range of motion. Cervical back: Normal range of motion. Skin: General: Skin is warm and dry. Capillary Refill: Capillary refill takes less than 2 seconds. Coloration: Skin is jaundiced. Neurological: General: No focal deficit present. Mental Status: He is alert and oriented to person, place, and time. Psychiatric: Mood and Affect: Mood normal. LAB: CBC: Recent Labs 02/28/23 0608 03/01/2392503/02/2318 WBC 4.6 8.3 7.4 HGB 14.2 13.4 12.7* HCT 40.2* 39.3* 36.5* MCV 85.7 90.6 88.0 PLT See Reflexed IPF Result See Reflexed IPF Result See Reflexed IPF Result BMP: Recent Labs 02/28/23 0608 03/01/23 0926 03/02/2318 NA 136 136 137 K 3.9 4.0 3.5* CL 103 101 100 CO2 21 26 27 BUN 9 10 10 CREATININE 0.7 0.8 0.8 GLUCOSE 100* 111* 106* Associated attestation - Gordo Baires MD - 03/02/2023 2:19 PM EDT I personally evaluated the patient and directed the medical decision making with Resident/KATIA after the physical/radiologic exam and laboratory values were reviewed and confirmed. Improving T bili 3.8 from 4 Likely d/c home tomorrow S. Dominic Baires MD Acute Care Surgery Comprehensive Nutrition Assessment Type and Reason for Visit: Initial, NPO/Clear Liquid Nutrition Recommendations/Plan: Recommend to advance to Low Fat Diet Send Clear liquids ONS with meals while on clear liquid diet Malnutrition Assessment: Malnutrition Status: No malnutrition (03/01/23 1429) Context: Acute Illness Findings of the 6 clinical characteristics of malnutrition: Energy Intake: 50% or less of estimated energy requirements for 5 or more days Weight Loss: No significant weight loss Body Fat Loss: No significant body fat loss Muscle Mass Loss: No significant muscle mass loss Fluid Accumulation: No significant fluid accumulation Sociology Faculty Member Strength: Not Performed Nutrition Assessment: Pt admitted with Gallstone Pancreatitis with Hx HTN. Pt underwent ERCP with stone removal and Cholecystectomy on 02/28 and remains on clear liquid diet at this time. Pt has been NPO or on clear liquids since admission, and reports his last significant oral intake was on Friday 02/23. This makes today Day #6 of inadequate nutritional intake. Patient and family state that he has been having nausea, especially when offered gelatin with his trays, but has been doing better today. Pt states he was able to drink some broth and juice today, and this has not caused any increase in Abd pain or nausea, though Pt continues to have Abd pain with movement as well as some cramps. He is hopeful he can have some solid food soon. No changes in weight are reported, and Pt denies any other nutritional problems/concerns. This script writer did provide verbal education on low fat diet, with written information provided, as well. Trimming Machine Operator encouraged small, frequent meals/snacks during the day once diet advances. Pt agrees to try clear ONS with meals while on clear liquids for increased protein intake. Nutrition Related Findings: Meds/Labs reviewed. Meds include Zofran PRN, HCTZ. Wound Type: Surgical Incision Current Nutrition Intake & Therapies: Average Meal Intake: 26-50% Average Supplements Intake: None Ordered ADULT DIET; Clear Liquid Anthropometric Measures: Height: 5' 10 (177.8 cm) [place] Body Weight (IBW): 166 lbs (75 kg) Current Body Weight: 221 lb 5.5 oz (100.4 kg), 133.3 % IBW. Current BMI (kg/m2): 31.8 Weight Adjustment For: No Adjustment BMI Categories: Obese Class 1 (BMI 30.0-34.9) Estimated Daily Nutrient Needs: Energy Requirements Based On: Formula Weight Used for Energy Requirements: Current Energy (kcal/day): 0241-8099 kcal/day Weight Used for Protein Requirements: [place] Protein (g/day): 110-115 g/day Method Used for Fluid Requirements: 1 ml/kcal Fluid (ml/day): 6308-7306 ml/day Nutrition Diagnosis: Inadequate oral intake related to other (comment) (inadequate diet order, nausea, Abd pain) as evidenced by NPO or clear liquid status due to medical condition, poor intake prior to admission Nutrition Interventions: Food and/or Nutrient Delivery: Start Oral Nutrition Supplement Nutrition Education/Counseling: Education completed (Low Fat diet education provided) Coordination of Nutrition Care: Continue to monitor while inpatient Plan of Care discussed with: Patient, family Goals: Goals: Meet at least 75% of estimated needs, prior to discharge Nutrition Monitoring and Evaluation: Behavioral-Environmental Outcomes: None Identified Food/Nutrient Intake Outcomes: Diet Advancement/Tolerance, Food and Nutrient Intake, Supplement Intake Physical Signs/Symptoms Outcomes: Biochemical Data, GI Status, Nausea or Vomiting, Skin, Weight Discharge Planning: Too soon to determine Isidra Fields RD Contact: Occupational Therapy Facility/Department: [address] ORTHO/MED SURG Occupational Therapy Initial Assessment Name: Yael Contreras : 1950 Date of Service: 03/01/2023 No chief complaint on file. Discharge Recommendations: No therapy recommended at discharge. OT Equipment Recommendations Equipment Needed: No Patient Diagnosis(es): The encounter diagnosis was Acute cholecystitis due to biliary calculus. Past Medical History: has a past medical history of Hearing loss. Past Surgical History: has a past surgical history that includes Dental surgery; Rotator cuff repair; and Cholecystectomy. Assessment Assessment: Pt agreed to OT this date. Pt engaged in functional transfers and mobility without difficulty. Pt engaged in grooming, toileting, and LB dressing this date independently with ability to provide own setup of items and retrieve/transport items without difficulty. Pt exhibits no acute performance deficits to further address and pt will be discharged from OT services. Pt reports no concerns with independently completing ADLs/IADLs or functional transfers/mobility upon discharge. Please reorder OT if future needs arise. Prognosis: Good Decision Making: Low Complexity No Skilled OT: No OT goals identified;Independent with ADL's REQUIRES OT FOLLOW-UP: No Activity Tolerance Activity Tolerance: Patient Tolerated treatment well Restrictions Restrictions/Precautions Restrictions/Precautions: General Precautions Required Braces or Orthoses?: No Position Activity Restriction Other position/activity restrictions: Up with assistance, s/p cholecystectomy, ERCP stone removal, sphincterectomy 02/28/2023 Subjective General Patient assessed for rehabilitation services?: Yes Family / Caregiver Present: No General Comment Comments: RN ok'd pt for OT this date. Pt agreed to session and was very pleasant/cooperative throughout. Pt reports pain of 5/10 to abdomen and was educated on non-pharmaceutical pain management intervention with good return and use Social/Functional History Social/Functional History Lives With: Spouse Type of Home: House Home Layout: Two level, Able to Live on Main level with bedroom/bathroom Home Access: Stairs to enter with rails Entrance Stairs - Number of Steps: 5 Entrance Stairs - Rails: Both (pt reports unable to reach B rail simultaneously) Bathroom Shower/Tub: Walk-in shower Bathroom Toilet: Standard Bathroom Equipment: Shower chair Home Equipment: Wheelchair-manual, Walker, rolling (No DME use at baseline) ADL Assistance: Independent Homemaking Assistance: Independent Homemaking Responsibilities: Yes Ambulation Assistance: Independent Transfer Assistance: Independent Active Churn Operator Margarine: Yes Mode of Transportation: Car, Truck, Van (typically drives truck) 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 Objective Safety Devices Type of Devices: Nurse notified;Gait belt;Call light within reach;Left in chair Restraints Restraints Initially in Place: No Bed Mobility Training Bed Mobility Training: No (pt was seated in recliner upon OT entrance and retired to recliner at OT exit) Balance Sitting: Intact (pt engaged in static and dynamic sitting and reaching activity with ability to reach to foot level bilaterally with increased time and effort independently) Standing: Intact (pt completed static and dynamic standing within hospital room and sinkside independently with ability to retrieve self-care items) Transfer Training Transfer Training: Yes Overall Level of Assistance: Supervision (SUP provided for safety only) Sit to Stand: Supervision Stand to Sit: Supervision Toilet Transfer: Supervision Gait Overall Level of Assistance: Supervision (pt completed functional mobility within hospital room and to/from bathroom with SUP for safety noting no gross unsteadiness throughout. pt was able to retrieve and transport grooming items without difficulty) AROM: Within functional limits Strength: Within functional limits (grossly 4/5) Coordination: Within functional limits Tone: Normal Sensation: Intact (pt denies numbness/tingling at this time) ADL Feeding: Independent Grooming: Independent Grooming Skilled Clinical Factors: pt retrieved and provided own setup for supplies and then completed oral hygiene standing sinkside independently UE Bathing: Independent LE Bathing: Modified independent ;Setup UE Dressing: Independent LE Dressing: Modified independent ;Setup;Increased time to complete LE Dressing Skilled Clinical Factors: pt engaged in LB dressing task utilizing modified technique while reaching to foot level and requiring increased time d/t abdominal pain Toileting: Independent Toileting Skilled Clinical Factors: pt engaged in toilet transfer independently Vision Vision: Impaired Vision Exceptions: Wears glasses at all times Hearing Hearing: Within functional limits Cognition Overall Cognitive Status: WFL Orientation Overall Orientation Status: Within Functional Limits Orientation Level: Oriented X4 Education Provided Comments: Pt ed on OT role, OT POC, safety awareness, pain utilization management rn, adaptive ADL tech, and to notify RN or MD if future needs arise. Good return noted. Hand Dominance Hand Dominance: Right AM-PAC Score AM-PAC Inpatient Daily Activity Raw Score: 24 (03/01/23 1233) AM-PAC Inpatient ADL T-Scale Score : 57.54 (03/01/23 1233) ADL Inpatient CMS 0-100% Score: 0 (03/01/23 1233) ADL Inpatient CMS G-Code Modifier : CH (03/01/23 1233) Therapy Time Individual Concurrent Group Co-treatment Time In 1019 Time Out 1045 Minutes 26 Timed Code Treatment Minutes: 24 Minutes Dominic Do OTR/L Images from the original note were not included. PROGRESS NOTE PATIENT NAME: Yael Contreras DATE: 03/01/2023 HD: # 5 Patient Active Problem List Diagnosis Acute pancreatitis without infection or necrosis Primary hypertension Transaminitis Hyperbilirubinemia Elevated alkaline phosphatase level Hearing loss Acute cholecystitis due to biliary calculus DIAGNOSIS AND PLAN Gallstone pancreatitis S/p robotic lap jerri Okay to advance diet as tolerated Continue zosyn LFTs tomorrow 03/02 Recommend DC IV pain meds Recommend Tylenol, robaxin, jovanni prn for pain SUBJECTIVE Patient seen and examined at bedside. States he is feeling okay but has not ate much. States stephen was brought in for breakfast and patient had the tray taken away because he was afraid it would make him throw up. OBJECTIVE VITALS: Vitals: 03/01/23 1114 BP: 128/67 Pulse: 70 Resp: 18 Temp: 97.8 F (36.6 C) SpO2: 95% Physical Exam Constitutional: General: He is awake. HENT: Head: Normocephalic. Eyes: Extraocular Movements: Extraocular movements intact. Pupils: Pupils are equal, round, and reactive to light. Cardiovascular: Rate and Rhythm: Normal rate and regular rhythm. Pulses: Normal pulses. Pulmonary: Effort: Pulmonary effort is normal. No respiratory distress. Breath sounds: No stridor. Abdominal: General: Abdomen is flat. Palpations: Abdomen is soft. Tenderness: There is abdominal tenderness (mild RUQ and midepigastric) in the left upper quadrant. Comments: Surgical incisions well approximated Musculoskeletal: General: No swelling. Normal range of motion. Cervical back: Normal range of motion. Skin: General: Skin is warm and dry. Capillary Refill: Capillary refill takes less than 2 seconds. Coloration: Skin is jaundiced. Neurological: General: No focal deficit present. Mental Status: He is alert and oriented to person, place, and time. Psychiatric: Mood and Affect: Mood normal. LAB: CBC: Recent Labs 02/27/23 0534 02/28/23 0608 03/01/23 0926 WBC 3.9 4.6 8.3 HGB 12.7* 14.2 13.4 HCT 36.3* 40.2* 39.3* MCV 88.1 85.7 90.6 PLT See Reflexed IPF Result See Reflexed IPF Result See Reflexed IPF Result BMP: Recent Labs 02/27/23 0534 02/28/23 0608 03/01/23 0926 NA 136 136 136 K 3.5* 3.9 4.0 CL 108* 103 101 CO2 19* 21 26 BUN 11 9 10 CREATININE 0.60* 0.7 0.8 GLUCOSE 107* 100* 111* Images from the original note were not included. [facility] Office: [phone] David Hanna DO, Teo Banuelos DO, Spenser Manrique DO, Brad Emanuel DO, Alexander Weiss MD, Giovanna Mathew MD, Cam Julio MD, Ange Bergman MD, Nora De Anda MD, Tomás Lopez MD, Atul Rossi DO, Jaya Boston MD, Karthik Robbins DO, Isaac Hale MD, Cole Larson MD, Jaylen Hanna DO, Candie Ellis MD, Jonas Pierre DO, Larisa Paul MD, Crystal Kelly MD, Jen Keys MD, Saulo Salomon MD, Zachariah Lawson MD, Penny Holliday MD, Aaron Salinas DO, Chetna Dyer MD, Palmer Cheney MD, Myrna Birmingham CNP, Raine Nash CNP, Gabrielle Houston CNP, Logan Lee CNP, Rochelle Chicas DNP, Katelyn Ramirez CNP, Jacqueline Ramirez CNP, Mary Garcia, TOUCH UP WORKER, Rachel Lopez, TOUCH UP WORKER, Stefany Ortega, TOUCH UP WORKER, Luis Leal PA-C, Roshni nKapp, ROSS, Agnes Martinez, GAMA, Anahi Nogueira, GAMA [facility] IN-PATIENT SERVICE [facility] Progress Note 03/01/2023 12:24 PM Name: Yael Contreras Acct: [id number] Room: [facility] Day: 5 Admit Date: 02/24/2023 8:51 PM PCP: No primary care provider on file. Code Status: Full Code Subjective: C/C: Abdominal pain Interval History Status: Patient underwent ERCP with stone removal and robotic cholecystectomy yesterday. Some postoperative pain is present but overall improved. LFTs are worsened today. Denies chest pain. Denies shortness of breath. Brief History: 72 years old gentleman who presented to the hospital from outside facility because of abdominal pain radiating to upper abdomen. CTs do not show acute process but he had elevated lipase. He was evaluated by GI and there was concern for gallstone pancreatitis. Patient underwent robotic cholecystectomy with intraoperative cholangiogram and ERCP with stone removal on 02/28/2023. Review of Systems: Constitutional: negative for chills, fevers, sweats Respiratory: negative for cough, dyspnea on exertion, shortness of breath, wheezing Cardiovascular: negative for chest pain, chest pressure/discomfort, lower extremity edema, palpitations Gastrointestinal: Positive for abdominal pain, no vomiting today neurological: negative for dizziness, headache Medications: Allergies: No Known Allergies Current Meds: Scheduled Meds: acetaminophen 1,000 mg Oral 3 times per day piperacillin-tazobactam 3,375 mg IntraVENous Q8H hydroCHLOROthiazide 25 mg Oral Daily losartan 100 mg Oral Daily sodium chloride flush 5-40 mL IntraVENous 2 times per day enoxaparin 40 mg SubCUTAneous Daily Continuous Infusions: PRN Meds: oxyCODONE, dicyclomine, sodium chloride flush, potassium chloride, magnesium sulfate, ondansetron OR ondansetron Data: Past Medical History: has a past medical history of Hearing loss. Social History: Family History: History reviewed. No pertinent family history. Vitals: BP 128/67 Pulse 70 Temp 97.8 F (36.6 C) (Oral) Resp 18 Ht 5' 10 (1.778 m) Wt 221 lb 5.5 oz (100.4 kg) SpO2 95% BMI 31.76 kg/m Temp (24hrs), Av.1 F (36.7 C), Min:97.8 F (36.6 C), Max:98.3 F (36.8 C) No results for input(s): POCGLU in the last 72 hours. I/O (24Hr): Intake/Output Summary (Last 24 hours) at 03/01/2023 1224 Last data filed at 02/28/2023 1818 Gross per 24 hour Intake 1900.6 ml Output -- Net 1900.6 ml Labs: Hematology: Recent Labs 02/27/2334 02/28/23 0608 03/01/23 0926 WBC 3.9 4.6 8.3 RBC 4.12* 4.69 4.34 HGB 12.7* 14.2 13.4 HCT 36.3* 40.2* 39.3* MCV 88.1 85.7 90.6 MCH 30.8 30.3 30.9 MCHC 35.0* 35.3* 34.1 RDW 13.1 13.0 13.6 PLT See Reflexed IPF Result See Reflexed IPF Result See Reflexed IPF Result Chemistry: Recent Labs 02/27/23 0534 02/28/23 0608 03/01/23 0926 NA 136 136 136 K 3.5* 3.9 4.0 CL 108* 103 101 CO2 19* 21 26 GLUCOSE 107* 100* 111* BUN 11 9 10 CREATININE 0.60* 0.7 0.8 MG 2.0 -- -- ANIONGAP 9 12 9 LABGLOM >60 >60 >60 CALCIUM 8.2* 9.0 8.8 Recent Labs 02/27/23 0534 02/28/23 0608 03/01/23 0926 PROT 5.2* 6.1* 5.8* LABALBU 2.8* 3.4* 3.3* AST 52* 64* 139* ALT 71* 80* 145* ALKPHOS 199* 228* 207* BILITOT 5.1* 5.4* 5.7* BILIDIR 3.6* 3.8* 4.1* ABG:No results found for: POCPH, PHART, PH, POCPCO2, [id number], PCO2, POCPO2, PO2ART, PO2, POCHCO3, MCU3DVC, HCO3, NBEA, PBEA, BEART, BE, THGBART, THB, BDT4DXJ, FVFO3FKP, X3TWBAPD, O2SAT, FIO2 No results found for: SPECIAL No results found for: CULTURE Radiology: MRI ABDOMEN WO CONTRAST MRCP Result Date: 02/25/2023 Unremarkable MRCP. Physical Examination: General appearance: alert, cooperative and no distress Mental Status: oriented to person, place and time and normal affect Lungs: clear to auscultation bilaterally, normal effort Heart: regular rate and rhythm, no murmur Abdomen: Mild postoperative tenderness, no rebound Extremities: no edema, redness, tenderness in the calves Skin: no gross lesions, rashes, induration Assessment: Hospital Problems Last Modified POA * (Principal) Acute pancreatitis without infection or necrosis 02/25/2023 Yes Primary hypertension 02/25/2023 Yes Transaminitis 02/25/2023 Yes Hyperbilirubinemia 02/25/2023 Yes Elevated alkaline phosphatase level 02/25/2023 Yes Hearing loss 02/25/2023 Yes Acute cholecystitis due to biliary calculus 02/28/2023 Yes Plan: Acute pancreatitis-possibly gallstone pancreatitis-s/p robotic cholecystectomy with intraoperative cholangiogram and then ERCP with stone removal t on 02/28/2023. LFTs are worsening today, I discussed with general surgery attending and they are recommending reviewed the patient in hospital to trend LFTs. Patient is on Zosyn as well. essential hypertension-on his home blood pressure medications including lisinopril and hydrochlorothiazide. Pain is also contributing to that. Continue to monitor, pain control On Zosyn DVT prophylaxis Tomás Lopez MD 03/01/2023 12:24 PM [facility] Gastroenterology Progress Note Yael Contreras is a 72 y.o. male patient. Hospitalization Day:5 Chief consult reason: Suspected choledocholithiasis Subjective: Patient seen and examined. Patient denies any epigastric abdominal pain though reports surgical pain. Patient reports nauseated this morning but no emesis. We will try to eat lunch. Last bowel movement prior to surgery yesterday Objective: VITALS: BP 115/66 Pulse 64 Temp 98.1 F (36.7 C) (Oral) Resp 16 Ht 5' 10 (1.778 m) Wt 221 lb 5.5 oz (100.4 kg) SpO2 98% BMI 31.76 kg/m TEMPERATURE: Current - Temp: 98.1 F (36.7 C); Max - Temp Av F (36.7 C) Min: 97 F (36.1 C) Max: 98.3 F (36.8 C) Physical Assessment: General appearance: alert, cooperative and no distress Mental Status: oriented to person, place and time and normal affect Lungs: clear to auscultation bilaterally, normal effort Heart: regular rate and rhythm, no murmur Abdomen: soft, surgically tender, nondistended, Extremities: no edema, no redness, No clubbing Skin: warm, dry, no gross lesions or rashes CURRENT MEDICATIONS: Scheduled Meds: acetaminophen 1,000 mg Oral 3 times per day piperacillin-tazobactam 3,375 mg IntraVENous Q8H hydroCHLOROthiazide 25 mg Oral Daily losartan 100 mg Oral Daily sodium chloride flush 5-40 mL IntraVENous 2 times per day enoxaparin 40 mg SubCUTAneous Daily Continuous Infusions: PRN Meds:oxyCODONE, dicyclomine, sodium chloride flush, potassium chloride, magnesium sulfate, HYDROmorphone OR HYDROmorphone, ondansetron OR ondansetron Data Review: LABS and IMAGING: CBC Recent Labs 02/27/23 0534 02/28/23 0608 WBC 3.9 4.6 HGB 12.7* 14.2 HCT 36.3* 40.2* MCV 88.1 85.7 MCHC 35.0* 35.3* RDW 13.1 13.0 PLT See Reflexed IPF Result See Reflexed IPF Result Immature PLTs Lab Results Component Value Date/Time PLTFLUORE 139 02/28/2023 06:08 AM PLTFLUORE 121 02/27/2023 05:34 AM PLTFLUORE 124 02/26/2023 06:47 AM ANEMIA STUDIES No results for input(s): LABIRON, TIBC, IRON, FERRITIN, [id number], FOLATE, OCCULTBLD in the last 72 hours. BMP Recent Labs 02/27/23 0534 02/28/23 0608 NA 136 136 K 3.5* 3.9 CL 108* 103 CO2 19* 21 BUN 11 9 CREATININE 0.60* 0.7 GLUCOSE 107* 100* CALCIUM 8.2* 9.0 LFTS Recent Labs 02/27/23 0534 02/28/23 0608 ALKPHOS 199* 228* ALT 71* 80* AST 52* 64* BILITOT 5.1* 5.4* BILIDIR 3.6* 3.8* LABALBU 2.8* 3.4* AMYLASE/LIPASE/AMMONIA No results for input(s): AMYLASE, LIPASE, AMMONIA in the last 72 hours. Acute Hepatitis Panel No results found for: HEPBSAG, HEPCAB, HEPBIGM, HEPAIGM HCV Genotype No results found for: HEPATITISCGENOTYPE HCV Quantitative No results found for: HCVQNT LIVER WORK UP: AFP No results found for: AFP Alpha 1 antitrypsin No results found for: A1A Anti - Liver/Kidney Ab No results found for: LIVER-KIDNEYMICROSOMALAB KARL No results found for: KARL AMA No results found for: MITOAB ASMA No results found for: SMOOTHMUSCAB Ceruloplasmin No results found for: CERULOPLSM Celiac panel No results found for: TISSTRNTIIGG, TTGIGA, IGA IgG No results found for: IGG IgM No results found for: IGM GGT No results found for: LABGGT PT/INR Recent Labs 02/26/23 1019 PROTIME 13.1 INR 1.0 Cancer Markers: CEA: No results found for: CEA Ca 125: No results found for: CA125 Ca 19-9: No results found for: CA199 AFP: No results found for: AFP Lactic acid:No results for input(s): LACTACIDWB in the last 72 hours. Radiology Review: ENDOSCOPY Principal Problem: Acute pancreatitis without infection or necrosis Active Problems: Primary hypertension Transaminitis Hyperbilirubinemia Elevated alkaline phosphatase level Hearing loss Acute cholecystitis due to biliary calculus Resolved Problems: * No resolved hospital problems. * GI Assessment: Choledocholithiasis - 02/28/2023 ERCP with sphincterotomy and balloon extraction of stone Acute cholecystitis - 02/28/2023 -laparoscopic robotic cholecystectomy Gallstone pancreatitis Plan of care: Diet per surgical team recommendations but okay for low-fat diet from a GI perspective Okay to discharge from GI perspective GI will sign off Time spent reviewing chart, seeing patient, and discussing with attending: Around 25 minutes This plan was formulated in collaboration with Dr. Whitney Please feel free to contact me with any questions or concerns. Thank you for allowing me to participate in the care of your patient. GRETEL Tse CNP on 03/01/2023 at 7:18 AM [facility] Please note that this note was generated using a voice recognition dictation software. Although every effort was made to ensure the accuracy of this automated medical and scientific illustrator, some errors in medical and scientific illustrator may have occurred. Images from the original note were not included. PROGRESS NOTE PATIENT NAME: Yael Contreras DATE: 02/28/2023 HD: # 4 Patient Active Problem List Diagnosis Acute pancreatitis without infection or necrosis Primary hypertension Transaminitis Hyperbilirubinemia Elevated alkaline phosphatase level Hearing loss DIAGNOSIS AND PLAN Gallstone pancreatitis S/p robotic lap jerri CLD-advance as tolerated. Continue zosyn LFTs tomorrow Recommend DC IV pain meds Recommend Tylenol, robaxin, jovanni prn for pain Chief Complaint: in pain SUBJECTIVE Patient seen postoperatively. C/o pain. Family at bedside. Spouse concerned and upset patient did not receive his blood pressure medications until last night and would like to know why. OBJECTIVE VITALS: Vitals: 02/28/23 1237 BP: Pulse: Resp: 16 Temp: SpO2: Physical Exam Constitutional: General: He is awake. HENT: Head: Normocephalic. Eyes: General: Scleral icterus present. Extraocular Movements: Extraocular movements intact. Pupils: Pupils are equal, round, and reactive to light. Cardiovascular: Rate and Rhythm: Normal rate and regular rhythm. Pulses: Normal pulses. Pulmonary: Effort: Pulmonary effort is normal. No respiratory distress. Breath sounds: No stridor. Abdominal: General: Abdomen is flat. Palpations: Abdomen is soft. Tenderness: There is abdominal tenderness (mild RUQ and midepigastric). Comments: Surgical incisions well approximated Musculoskeletal: General: No swelling. Normal range of motion. Cervical back: Normal range of motion. Skin: General: Skin is warm and dry. Capillary Refill: Capillary refill takes less than 2 seconds. Coloration: Skin is jaundiced. Neurological: General: No focal deficit present. Mental Status: He is alert and oriented to person, place, and time. Psychiatric: Mood and Affect: Mood normal. LAB: CBC: Recent Labs 02/26/23 0647 02/27/23 0534 02/28/23 0608 WBC 4.6 3.9 4.6 HGB 13.2 12.7* 14.2 HCT 38.2* 36.3* 40.2* MCV 88.2 88.1 85.7 PLT See Reflexed IPF Result See Reflexed IPF Result See Reflexed IPF Result BMP: Recent Labs 02/26/23 0647 02/27/23 0534 02/28/23 0608 NA 137 136 136 K 3.6* 3.5* 3.9 CL 107 108* 103 CO2 18* 19* 21 BUN 17 11 9 CREATININE 0.54* 0.60* 0.7 GLUCOSE 78 107* 100* Images from the original note were not included. [facility] Office: [phone] David Hanna DO, Teo Banuelos DO, Spenser Manrique DO, Brad Emanuel DO, Alexander Weiss MD, Giovanna Mathew MD, Cam Julio MD, Ange Bergman MD, Nora De Anda MD, Tomás Lopez MD, Atul Rossi DO, Jaya Boston MD, Karthik Robbins DO, Isaac Hale MD, Cole Larson MD, Jaylen Hanna DO, Candie Ellis MD, Jonas Pierre DO, Larisa Paul MD, Crystal Kelly MD, Jen Keys MD, Saulo Salomon MD, Zachariah Lawson MD, Penny Holliday MD, Aaron Salinas DO, Chetna Dyer MD, Palmer Cheney MD, Myrna Birmingham, GAMA, Raine Nash CNP, Gabrielle Houston CNP, Logan Lee, TOUCH UP WORKER, Rochelle Chicas, MERCEDES, Katelyn Ramirez, TOUCH UP WORKER, Jacqueline Ramirez, TOUCH UP WORKER, Mary Garcia, TOUCH UP WORKER, Rachel Lopez, TOUCH UP WORKER, Stefany Ortega TOUCH UP WORKER, Luis Leal PA-C, Roshni Knapp, [facility], Agnes Martinez, TOUCH UP WORKER, Anahi Nogueira, TOUCH UP WORKER [facility] IN-PATIENT SERVICE [facility] Progress Note 02/28/2023 12:35 PM Name: Yael Contreras Acct: [id number] Room: 0239/0239-01 Day: 4 Admit Date: 02/24/2023 8:51 PM PCP: No primary care provider on file. Code Status: Full Code Subjective: C/C: Abdominal pain Interval History Status: Patient underwent ERCP with stone removal and robotic cholecystectomy today. Currently having postoperative pain, denies chest pain, denies shortness of breath Brief History: Per my colleague:Yael Contreras is a 72 y.o. Unavailable / unknown male who presents with No chief complaint on file. and is admitted to the hospital for the management of Acute pancreatitis without infection or necrosis. Patient with no significant past medical history except for essential hypertension and hearing loss transferred to our facility from outside hospital with complaint of generalized abdominal pain that radiates to his upper abdomen and more to the right associated with nausea vomiting loose appetite, he had 2 similar episodes in the past one of them were associated with chills. Blood work at outside hospital showing elevated lipase CT abdomen pelvis at outside facility did not show acute abnormalities, he was transferred to our facility to be evaluated by GI team Denies any associated vomiting or diarrhea chest pain or shortness of breath or fevers. Upon presentation repeat blood work still revealing increased alkaline phosphatase transaminitis and hyperbilirubinemia along with lipase of 900 Patient was admitted. Patient underwent robotic cholecystectomy with intraoperative cholangiogram and then possible ERCP with stone removal on 02/28/2023. Review of Systems: Constitutional: negative for chills, fevers, sweats Respiratory: negative for cough, dyspnea on exertion, shortness of breath, wheezing Cardiovascular: negative for chest pain, chest pressure/discomfort, lower extremity edema, palpitations Gastrointestinal: Positive for abdominal pain, no vomiting today neurological: negative for dizziness, headache Medications: Allergies: No Known Allergies Current Meds: Scheduled Meds: acetaminophen 1,000 mg Oral 3 times per day piperacillin-tazobactam 3,375 mg IntraVENous Q8H hydroCHLOROthiazide 25 mg Oral Daily losartan 100 mg Oral Daily sodium chloride flush 5-40 mL IntraVENous 2 times per day enoxaparin 40 mg SubCUTAneous Daily Continuous Infusions: sodium chloride 75 mL/hr at 02/28/23 1109 PRN Meds: oxyCODONE, dicyclomine, sodium chloride flush, potassium chloride, magnesium sulfate, HYDROmorphone OR HYDROmorphone, ondansetron OR ondansetron Data: Past Medical History: has a past medical history of Hearing loss. Social History: Family History: History reviewed. No pertinent family history. Vitals: BP (!) 161/99 Pulse 82 Temp 98.2 F (36.8 C) (Oral) Resp 18 Ht 5' 10 (1.778 m) Wt 217 lb 9.5 oz (98.7 kg) SpO2 96% BMI 31.22 kg/m Temp (24hrs), Av.9 F (36.6 C), Min:97 F (36.1 C), Max:98.2 F (36.8 C) No results for input(s): POCGLU in the last 72 hours. I/O (24Hr): Intake/Output Summary (Last 24 hours) at 02/28/2023 1235 Last data filed at 02/28/2023 0930 Gross per 24 hour Intake 1500 ml Output 20 ml Net 1480 ml Labs: Hematology: Recent Labs 02/26/23 0647 02/26/23 1019 02/27/23 0534 02/28/23 0608 WBC 4.6 -- 3.9 4.6 RBC 4.33 -- 4.12* 4.69 HGB 13.2 -- 12.7* 14.2 HCT 38.2* -- 36.3* 40.2* MCV 88.2 -- 88.1 85.7 MCH 30.5 -- 30.8 30.3 MCHC 34.6 -- 35.0* 35.3* RDW 13.2 -- 13.1 13.0 PLT See Reflexed IPF Result -- See Reflexed IPF Result See Reflexed IPF Result INR -- 1.0 -- -- Chemistry: Recent Labs 02/26/23 0647 02/27/23 0534 02/28/23 0608 NA 137 136 136 K 3.6* 3.5* 3.9 CL 107 108* 103 CO2 18* 19* 21 GLUCOSE 78 107* 100* BUN 17 11 9 CREATININE 0.54* 0.60* 0.7 MG -- 2.0 -- ANIONGAP 12 9 12 LABGLOM >60 >60 >60 CALCIUM 8.3* 8.2* 9.0 Recent Labs 02/26/2347 02/27/23 0534 02/28/23 0608 PROT 5.6* 5.2* 6.1* LABALBU 3.0* 2.8* 3.4* AST 62* 52* 64* ALT 88* 71* 80* ALKPHOS 219* 199* 228* BILITOT 7.5* 5.1* 5.4* BILIDIR -- 3.6* 3.8* ABG:No results found for: POCPH, PHART, PH, POCPCO2, WXG2EOV, PCO2, POCPO2, PO2ART, PO2, POCHCO3, TYS1ZUV, HCO3, NBEA, PBEA, BEART, BE, THGBART, THB, TPP6VRC, SLON7GKM, D9VGLREG, O2SAT, FIO2 No results found for: SPECIAL No results found for: CULTURE Radiology: MRI ABDOMEN WO CONTRAST MRCP Result Date: 02/25/2023 Unremarkable MRCP. Physical Examination: General appearance: alert, cooperative and no distress Mental Status: oriented to person, place and time and normal affect Lungs: clear to auscultation bilaterally, normal effort Heart: regular rate and rhythm, no murmur Abdomen: Mild postoperative tenderness, no rebound Extremities: no edema, redness, tenderness in the calves Skin: no gross lesions, rashes, induration Assessment: Hospital Problems Last Modified POA * (Principal) Acute pancreatitis without infection or necrosis 02/25/2023 Yes Primary hypertension 02/25/2023 Yes Transaminitis 02/25/2023 Yes Hyperbilirubinemia 02/25/2023 Yes Elevated alkaline phosphatase level 02/25/2023 Yes Hearing loss 02/25/2023 Yes Plan: Acute pancreatitis-possibly gallstone pancreatitis-s/p robotic cholecystectomy with intraoperative cholangiogram and then possible ERCP with stone removal today essential hypertension-on his home blood pressure medications including lisinopril and hydrochlorothiazide. Pain is also contributing to that. Continue to monitor, pain control On Zosyn DVT prophylaxis Tomás Lopez MD 02/28/2023 12:[address] Chele Lopez notified patient unable to tolerate 2nd dose of IV potassium replacement d/t burning pain in his arm from the infusion. Images from the original note were not included. PROGRESS NOTE PATIENT NAME: Yael Contreras DATE: 02/27/2023 HD: # 3 Patient Active Problem List Diagnosis Acute pancreatitis without infection or necrosis Primary hypertension Transaminitis Hyperbilirubinemia Elevated alkaline phosphatase level Hearing loss DIAGNOSIS AND PLAN Diagnosis - Gallstone pancreatitis Plan - Improving, currently plan ERCP followed by robotic jerri NPO w/ sips MIVF Continue abx Goal home POD1 from surgery if doing well Chief Complaint: I'm ready SUBJECTIVE AMARI, VSS, some HTN, denies CP or SOB, N/V. States abdominal pain much improved, bili improving today OBJECTIVE VITALS: Vitals: 02/27/23 0811 BP: (!) 141/81 Pulse: 59 Resp: 16 Temp: 98.3 F (36.8 C) SpO2: 96% Physical Exam Constitutional: General: He is not in acute distress. Appearance: Normal appearance. He is normal weight. HENT: Head: Normocephalic and atraumatic. Right Ear: External ear normal. Left Ear: External ear normal. Nose: Nose normal. No congestion. Mouth/Throat: Mouth: Mucous membranes are moist. Pharynx: Oropharynx is clear. Eyes: General: Scleral icterus present. Extraocular Movements: Extraocular movements intact. Pupils: Pupils are equal, round, and reactive to light. Cardiovascular: Rate and Rhythm: Normal rate and regular rhythm. Pulses: Normal pulses. Pulmonary: Effort: Pulmonary effort is normal. No respiratory distress. Breath sounds: No stridor. Abdominal: General: Abdomen is flat. Palpations: Abdomen is soft. Tenderness: There is abdominal tenderness (mild RUQ and midepigastric). Musculoskeletal: General: No swelling. Normal range of motion. Cervical back: Normal range of motion. Skin: General: Skin is warm and dry. Capillary Refill: Capillary refill takes less than 2 seconds. Coloration: Skin is jaundiced. Neurological: General: No focal deficit present. Mental Status: He is alert and oriented to person, place, and time. Psychiatric: Mood and Affect: Mood normal. LAB: CBC: Recent Labs 02/25/23 0600 02/26/23 0647 02/27/23 0534 WBC 6.3 4.6 3.9 HGB 12.8* 13.2 12.7* HCT 37.4* 38.2* 36.3* MCV 90.3 88.2 88.1 PLT 124* See Reflexed IPF Result See Reflexed IPF Result BMP: Recent Labs 02/25/23 0600 02/26/23 0647 02/27/23 0534 NA 136 137 136 K 3.7 3.6* 3.5* CL 105 107 108* CO2 21 18* 19* BUN 20 17 11 CREATININE 0.64* 0.54* 0.60* GLUCOSE 112* 78 107* RADIOLOGY: CXR: MRI ABDOMEN WO CONTRAST MRCP Result Date: 02/25/2023 Unremarkable MRCP. Juanita Wood MD 02/27/2023, 12:01 PM Attending Note I have reviewed the above [facility] resident progress note and I either performed the mott elements of the medical history and physical exam or was present when the resident performed them. I have discussed the findings, established the care plan and recommendations with resident Bernard. The following confirms and/or amends the IMPRESSION, MEDICAL DECISION MAKING and PLAN from above. ASSESSMENT Patient Active Problem List Diagnosis Acute pancreatitis without infection or necrosis Primary hypertension Transaminitis Hyperbilirubinemia Elevated alkaline phosphatase level Hearing loss MEDICAL DECISION MAKING AND PLAN Bilirubin, while still elevated is decreasing Juanita Wood MD 02/27/2023 12:01 PM [facility] Progress Note Yael Contreras is a 72 y.o. male patient. Hospitalization Day:3 Chief consult reason: Suspected choledocholithiasis Subjective: Patient has mild epigastric abdominal discomfort. LFTs are trending down. Objective: VITALS: BP (!) 141/81 Pulse 59 Temp 98.3 F (36.8 C) (Oral) Resp 16 Ht 5' 10 (1.778 m) Wt 217 lb 9.5 oz (98.7 kg) SpO2 96% BMI 31.22 kg/m TEMPERATURE: Current - Temp: 98.3 F (36.8 C); Max - Temp Av.2 F (36.8 C) Min: 98.1 F (36.7 C) Max: 98.3 F (36.8 C) Physical Assessment: General appearance: alert, cooperative and no distress Mental Status: oriented to person, place and time and normal affect Lungs: clear to auscultation bilaterally, normal effort Heart: regular rate and rhythm, no murmur Abdomen: soft, mild tenderness in epigastric area. nondistended, normal bowel sounds, no masses Extremities: no edema, no redness, No clubbing Skin: warm, dry, no gross lesions or rashes CURRENT MEDICATIONS: Scheduled Meds: sodium chloride flush 5-40 mL IntraVENous 2 times per day enoxaparin 40 mg SubCUTAneous Daily Continuous Infusions: sodium chloride sodium chloride PRN Meds:sodium chloride flush, sodium chloride, potassium chloride, magnesium sulfate, HYDROmorphone OR HYDROmorphone, ondansetron OR ondansetron Data Review: LABS and IMAGING: CBC Recent Labs 02/25/23 0600 02/26/23 0647 02/27/23 0534 WBC 6.3 4.6 3.9 HGB 12.8* 13.2 12.7* HCT 37.4* 38.2* 36.3* MCV 90.3 88.2 88.1 MCHC 34.2 34.6 35.0* RDW 13.2 13.2 13.1 PLT 124* See Reflexed IPF Result See Reflexed IPF Result Immature PLTs Lab Results Component Value Date/Time PLTFLUORE 121 02/27/2023 05:34 AM PLTFLUORE 124 02/26/2023 06:47 AM [facility] [employer] No results for input(s): LABIRON, TIBC, IRON, FERRITIN, PZRCGSGP85, FOLATE, OCCULTBLD in the last 72 hours. BMP Recent Labs 02/25/23 0602/26/23 0647 02/27/23 0534 NA 136 137 136 K 3.7 3.6* 3.5* CL 105 107 108* CO2 21 18* 19* BUN 20 17 11 CREATININE 0.64* 0.54* 0.60* GLUCOSE 112* 78 107* CALCIUM 8.1* 8.3* 8.2* LFTS Recent Labs 02/25/23 0602/26/23 0647 02/27/23 0534 ALKPHOS 208* 219* 199* ALT 105* 88* 71* AST 71* 62* 52* BILITOT 8.1* 7.5* 5.1* BILIDIR -- -- 3.6* LABALBU 3.0* 3.0* 2.8* AMYLASE/LIPASE/AMMONIA Recent Labs 02/25/23 0600 LIPASE 902* PT/INR Recent Labs 02/25/2359902/26/23 1019 PROTIME 14.1 13.1 INR 1.1 1.0 Cancer Markers: CEA: No results for input(s): CEA in the last 72 hours. Ca 125: No results for input(s): CA125 in the last 72 hours. Ca 19-9: No results for input(s): CA199 in the last 72 hours. AFP: No results for input(s): AFP in the last 72 hours. Lactic acid:No results for input(s): LACTACIDWB in the last 72 hours. Radiology Review: MRI ABDOMEN WO CONTRAST MRCP Result Date: 02/25/2023 EXAMINATION: MRI OF THE ABDOMEN WITHOUT CONTRAST AND MRCP 02/25/2023 11:27 am TECHNIQUE: Multiplanar multisequence MRI of the abdomen was performed without the administration of intravenous contrast. After initial T2 axial and coronal images, thick slab, thin slab and 3D coronal MRCP sequences were obtained without the administration of intravenous contrast. MIP images are provided for review. COMPARISON: None HISTORY: ORDERING SYSTEM PROVIDED HISTORY: Transaminitis/pancreatitis/rule out biliary stone TECHNOLOGIST PROVIDED HISTORY: Transaminitis/pancreatitis/rule out biliary stone Reason for Exam: Transaminitis/pancreatitis/rule out biliary stone FINDINGS: MRCP images are limited due to respiratory motion contributing to artifact on reconstructed sequences. Gallbladder: The gallbladder is normally distended. No evidence of cholelithiasis. No inflammation. Bile Ducts: The intrahepatic biliary ducts appear normal. The common bile duct is also normal measuring 8 mm in diameter. No intraluminal filling defect or underlying stricture. Pancreatic Duct: Normal pancreatic duct. Other: None Unremarkable MRCP. ENDOSCOPY Principal Problem: Acute pancreatitis without infection or necrosis Active Problems: Primary hypertension Transaminitis Hyperbilirubinemia Elevated alkaline phosphatase level Hearing loss Resolved Problems: * No resolved hospital problems. * GI Assessment: Abnormal liver chemistries likely from biliary duct obstruction which are trending down may have passed CBD stone. MRI was negative officially. Gallstone pancreatitis. Obesity Body mass index is 31.22 kg/m . Plan of care: Patient was originally scheduled for ERCP with cholecystectomy today however due to few emergencies this has been postponed. We will plan for cholecystectomy tomorrow with possible intraoperative cholangiogram and if intraoperative cholangiogram shows any persistent CBD stone then we can plan for ERCP at the same sedation. Discussed with surgery team attending over the phone. Please feel free to contact me with any questions or concerns. Thank you for allowing me to participate in the care of your patient. Natasha Whitney MD on 02/27/2023 at 11:26 AM [facility] Please note that this note was generated using a voice recognition dictation software. Although every effort was made to ensure the accuracy of this automated medical and scientific illustrator, some errors in medical and scientific illustrator may have occurred. Images from the original note were not included. PROGRESS NOTE PATIENT NAME: Yael Contreras DATE: 02/27/2023 HD: # 3 Patient Active Problem List Diagnosis Acute pancreatitis without infection or necrosis Primary hypertension Transaminitis Hyperbilirubinemia Elevated alkaline phosphatase level Hearing loss DIAGNOSIS AND PLAN Diagnosis - Gallstone pancreatitis Plan - Improving, currently plan ERCP followed by robotic jerri NPO w/ sips MIVF Continue abx Goal home POD1 from surgery if doing well Chief Complaint: I'm ready SUBJECTIVE AMARI, VSS, some HTN, denies CP or SOB, N/V. States abdominal pain much improved, bili improving today OBJECTIVE VITALS: Vitals: 02/27/23 0811 BP: (!) 141/81 Pulse: 59 Resp: 16 Temp: 98.3 F (36.8 C) SpO2: 96% Physical Exam Constitutional: General: He is not in acute distress. Appearance: Normal appearance. He is normal weight. HENT: Head: Normocephalic and atraumatic. Right Ear: External ear normal. Left Ear: External ear normal. Nose: Nose normal. No congestion. Mouth/Throat: Mouth: Mucous membranes are moist. Pharynx: Oropharynx is clear. Eyes: General: Scleral icterus present. Extraocular Movements: Extraocular movements intact. Pupils: Pupils are equal, round, and reactive to light. Cardiovascular: Rate and Rhythm: Normal rate and regular rhythm. Pulses: Normal pulses. Pulmonary: Effort: Pulmonary effort is normal. No respiratory distress. Breath sounds: No stridor. Abdominal: General: Abdomen is flat. Palpations: Abdomen is soft. Tenderness: There is abdominal tenderness (mild RUQ and midepigastric). Musculoskeletal: General: No swelling. Normal range of motion. Cervical back: Normal range of motion. Skin: General: Skin is warm and dry. Capillary Refill: Capillary refill takes less than 2 seconds. Coloration: Skin is jaundiced. Neurological: General: No focal deficit present. Mental Status: He is alert and oriented to person, place, and time. Psychiatric: Mood and Affect: Mood normal. LAB: CBC: Recent Labs 02/25/23 0600 02/26/23 0647 02/27/23 0534 WBC 6.3 4.6 3.9 HGB 12.8* 13.2 12.7* HCT 37.4* 38.2* 36.3* MCV 90.3 88.2 88.1 PLT 124* See Reflexed IPF Result See Reflexed IPF Result BMP: Recent Labs 02/25/23 0600 02/26/23 0647 02/27/23 0534 NA 136 137 136 K 3.7 3.6* 3.5* CL 105 107 108* CO2 21 18* 19* BUN 20 17 11 CREATININE 0.64* 0.54* 0.60* GLUCOSE 112* 78 107* RADIOLOGY: CXR: MRI ABDOMEN WO CONTRAST MRCP Result Date: 02/25/2023 Unremarkable MRCP. Tony MaldonadoisDO 02/27/2023, 10:44 AM Associated attestation - Santo Woodruff MD - 02/27/2023 12:43 PM EDT I personally evaluated the patient and directed the medical decision making with Resident/KATIA after the physical/radiologic exam and laboratory values were reviewed and confirmed. Discussed need of cholecystectomy and possible ERCP. OR is not available today so case was moved to tomorrow. Patient aware. Will plan for robo jerri with IOC and possible ERCP if needed tomorrow. Santo Woodruff MD Images from the original note were not included. [facility] Office: [phone] David Hanna DO, Teo Banuelos DO, Spenser Manrique DO, Brad Emanuel DO, Alexander Weiss MD, Giovanna Mathew MD, Cam Julio MD, Ange Bergman MD, Nora De Anda MD, Tomsá Lopez MD, Atul Rossi DO, Jaya Boston MD, Karthik Robbins DO, Isaac Hale MD, Cole Larson MD, Jaylen Hanna DO, Candie Ellis MD, Jonas Pierre DO, Larisa Paul MD, Crystal Kelly MD, Jen Keys MD, Saulo Salomon MD, Zachariah Lawson MD, Penny Holliday MD, Aaron Salinas DO, Chetna Dyer MD, Palmer Cheney MD, Myrna Birmingham CNP, Raine Nash CNP, Gabrielle Houston CNP, Logan Lee CNP, Rochelle Chicas, MERCEDES, Katelyn Ramirez, GAMA, Jacqueline Ramirez, GAMA, Mary Garcia, GAMA, Rachel Lopez, GAMA, Stefany Ortega, GAMA, Luis Leal PA-C, Roshni Knapp, ROSS, Agnes Martinez, GAMA, Anahi Nogueira, GAMA [facility] IN-PATIENT SERVICE [facility] Progress Note 02/27/2023 2:28 PM Name: Yael Contreras Acct: [id number] Room: 0239/0239-01 Day: 3 Admit Date: 02/24/2023 8:51 PM PCP: No primary care provider on file. Code Status: Full Code Subjective: C/C: Abdominal pain Interval History Status: Patient is hemodynamically stable. Plan was for surgery today however due to emergencies it has been postponed till tomorrow, denies chest pain, denies shortness of breath Brief History: Per my colleague:Yael Contreras is a 72 y.o. Unavailable / unknown male who presents with No chief complaint on file. and is admitted to the hospital for the management of Acute pancreatitis without infection or necrosis. Patient with no significant past medical history except for essential hypertension and hearing loss transferred to our facility from outside hospital with complaint of generalized abdominal pain that radiates to his upper abdomen and more to the right associated with nausea vomiting loose appetite, he had 2 similar episodes in the past one of them were associated with chills. Blood work at outside hospital showing elevated lipase CT abdomen pelvis at outside facility did not show acute abnormalities, he was transferred to our facility to be evaluated by GI team Denies any associated vomiting or diarrhea chest pain or shortness of breath or fevers. Upon presentation repeat blood work still revealing increased alkaline phosphatase transaminitis and hyperbilirubinemia along with lipase of 900 Review of Systems: Constitutional: negative for chills, fevers, sweats Respiratory: negative for cough, dyspnea on exertion, shortness of breath, wheezing Cardiovascular: negative for chest pain, chest pressure/discomfort, lower extremity edema, palpitations Gastrointestinal: Positive for abdominal pain, no vomiting today neurological: negative for dizziness, headache Medications: Allergies: No Known Allergies Current Meds: Scheduled Meds: potassium chloride 20 mEq Oral Once sodium chloride flush 5-40 mL IntraVENous 2 times per day enoxaparin 40 mg SubCUTAneous Daily Continuous Infusions: [START ON 02/28/2023] sodium chloride sodium chloride PRN Meds: sodium chloride flush, sodium chloride, potassium chloride, magnesium sulfate, HYDROmorphone OR HYDROmorphone, ondansetron OR ondansetron Data: Past Medical History: has a past medical history of Hearing loss. Social History: Family History: No family history on file. Vitals: BP (!) 141/81 Pulse 59 Temp 98.3 F (36.8 C) (Oral) Resp 16 Ht 5' 10 (1.778 m) Wt 217 lb 9.5 oz (98.7 kg) SpO2 96% BMI 31.22 kg/m Temp (24hrs), Av.2 F (36.8 C), Min:98.1 F (36.7 C), Max:98.3 F (36.8 C) No results for input(s): POCGLU in the last 72 hours. I/O (24Hr): No intake or output data in the 24 hours ending 02/27/23 1428 Labs: Hematology: Recent Labs 02/25/23 0600 02/26/23 0647 02/26/23 1019 02/27/23 0534 WBC 6.3 4.6 -- 3.9 RBC 4.14* 4.33 -- 4.12* HGB 12.8* 13.2 -- 12.7* HCT 37.4* 38.2* -- 36.3* MCV 90.3 88.2 -- 88.1 MCH 30.9 30.5 -- 30.8 MCHC 34.2 34.6 -- 35.0* RDW 13.2 13.2 -- 13.1 PLT 124* See Reflexed IPF Result -- See Reflexed IPF Result MPV 11.6 -- -- -- INR 1.1 -- 1.0 -- Chemistry: Recent Labs 02/25/23 0600 02/26/23 0647 02/27/23 0534 NA 136 137 136 K 3.7 3.6* 3.5* CL 105 107 108* CO2 21 18* 19* GLUCOSE 112* 78 107* BUN 20 17 11 CREATININE 0.64* 0.54* 0.60* MG 2.0 -- 2.0 ANIONGAP 10 12 9 LABGLOM >60 >60 >60 CALCIUM 8.1* 8.3* 8.2* CAION 1.05* -- -- PHOS 2.6 -- -- Recent Labs 02/25/23 0600 02/26/23 0647 02/27/23 0534 PROT 5.3* 5.6* 5.2* LABALBU 3.0* 3.0* 2.8* AST 71* 62* 52* ALT 105* 88* 71* ALKPHOS 208* 219* 199* BILITOT 8.1* 7.5* 5.1* BILIDIR -- -- 3.6* LIPASE 902* -- -- TRIG 159* -- -- ABG:No results found for: POCPH, PHART, PH, POCPCO2, DWE2VNC, PCO2, POCPO2, PO2ART, PO2, POCHCO3, [id number], HCO3, NBEA, PBEA, BEART, BE, THGBART, THB, DKF3ZSC, KMXT2IWU, G7KMCFIY, O2SAT, FIO2 No results found for: SPECIAL No results found for: CULTURE Radiology: MRI ABDOMEN WO CONTRAST MRCP Result Date: 02/25/2023 Unremarkable MRCP. Physical Examination: General appearance: alert, cooperative and no distress Mental Status: oriented to person, place and time and normal affect Lungs: clear to auscultation bilaterally, normal effort Heart: regular rate and rhythm, no murmur Abdomen: Mild right upper quadrant and epigastric tenderness Extremities: no edema, redness, tenderness in the calves Skin: no gross lesions, rashes, induration Assessment: Hospital Problems Last Modified POA * (Principal) Acute pancreatitis without infection or necrosis 02/25/2023 Yes Primary hypertension 02/25/2023 Yes Transaminitis 02/25/2023 Yes Hyperbilirubinemia 02/25/2023 Yes Elevated alkaline phosphatase level 02/25/2023 Yes Hearing loss 02/25/2023 Yes Plan: Acute pancreatitis-possibly gallstone pancreatitis-decrease IV fluids. Plan for robotic cholecystectomy with intraoperative cholangiogram and then possible ERCP tomorrow essential hypertension-blood pressure medications on hold. Blood pressure currently acceptable Transaminitis/hyperbilirubinemia-co ntinue to monitor, follow GI/surgery plan Replace potassium DVT prophylaxis Tomás Lopez MD 02/27/2023 2:28 PM Images from the original note were not included. [facility] Office: [phone] David Hanna DO, Teo Banuelos DO, Spenser Manrique DO, Brad Emanuel DO, Alexander Weiss MD, Giovanna Mathew MD, Cam Julio MD, Ange Bergman MD, Nora De Anda MD, Tomás Lopez MD, Atul Rossi DO, Jaya Boston MD, Karthik Robbins DO, Isaac Hale MD, Cole Larson MD, Jaylen Hanna DO, Candie Ellis MD, Jonas Pierre DO, Larisa Paul MD, Crystal Kelly MD, Jen Keys MD, Saulo Salomon MD, Zachariah Lawson MD, Penny Holliday MD, Aaron Salinas DO, Chetna Dyer MD, Palmer Cheney MD, Myrna Birmingham CNP, Raine Nash CNP, Gabrielle Houston CNP, Logan Lee, TOUCH UP WORKER, Rochelle Chicas, MERCEDES, Katelyn Ramirez, TOUCH UP WORKER, Jacqueline Ramirez CNP, Mary Garcia CNP, Rachel Lopez CNP, Stefany Ortega CNP, SANDY Briones-C, Roshni Knapp, ROSS, Agnes Martinez, TOUCH UP WORKER, Anahi Nogueira, TOUCH UP WORKER [facility] IN-PATIENT SERVICE [facility] Progress Note 02/26/2023 2:44 PM Name: Yael Contreras Acct: [id number] Room: 0239/0239-01 Day: 2 Admit Date: 02/24/2023 8:51 PM PCP: No primary care provider on file. Code Status: Full Code Subjective: C/C: Abdominal pain Interval History Status: Patient is feeling much better today, his abdominal pain is better. He had some diarrhea this morning. Denies chest pain, denies shortness of breath. Denies any chest pain on exertion. No other acute issues overnight. Brief History: Per my colleague:Yael Contreras is a 72 y.o. Unavailable / unknown male who presents with No chief complaint on file. and is admitted to the hospital for the management of Acute pancreatitis without infection or necrosis. Patient with no significant past medical history except for essential hypertension and hearing loss transferred to our facility from outside hospital with complaint of generalized abdominal pain that radiates to his upper abdomen and more to the right associated with nausea vomiting loose appetite, he had 2 similar episodes in the past one of them were associated with chills. Blood work at outside hospital showing elevated lipase CT abdomen pelvis at outside facility did not show acute abnormalities, he was transferred to our facility to be evaluated by GI team Denies any associated vomiting or diarrhea chest pain or shortness of breath or fevers. Upon presentation repeat blood work still revealing increased alkaline phosphatase transaminitis and hyperbilirubinemia along with lipase of 900 Review of Systems: Constitutional: negative for chills, fevers, sweats Respiratory: negative for cough, dyspnea on exertion, shortness of breath, wheezing Cardiovascular: negative for chest pain, chest pressure/discomfort, lower extremity edema, palpitations Gastrointestinal: Positive for abdominal pain, no vomiting today neurological: negative for dizziness, headache Medications: Allergies: No Known Allergies Current Meds: Scheduled Meds: sodium chloride flush 5-40 mL IntraVENous 2 times per day [Held by provider] enoxaparin 40 mg SubCUTAneous Daily Continuous Infusions: sodium chloride 150 mL/hr at 02/26/23 0834 sodium chloride PRN Meds: sodium chloride flush, sodium chloride, potassium chloride, magnesium sulfate, HYDROmorphone OR HYDROmorphone, ondansetron OR ondansetron Data: Past Medical History: has a past medical history of Hearing loss. Social History: Family History: No family history on file. Vitals: BP 127/76 Pulse 63 Temp 97.9 F (36.6 C) (Oral) Resp 16 Ht 5' 10 (1.778 m) Wt 217 lb 9.5 oz (98.7 kg) SpO2 98% BMI 31.22 kg/m Temp (24hrs), Av F (36.7 C), Min:97.9 F (36.6 C), Max:98 F (36.7 C) No results for input(s): POCGLU in the last 72 hours. I/O (24Hr): No intake or output data in the 24 hours ending 02/26/23 1444 Labs: Hematology: Recent Labs 02/25/23 0602/26/23 1019 WBC 6.3 -- RBC 4.14* -- HGB 12.8* -- HCT 37.4* -- MCV 90.3 -- MCH 30.9 -- MCHC 34.2 -- RDW 13.2 -- PLT 124* -- MPV 11.6 -- INR 1.1 1.0 Chemistry: Recent Labs 02/25/23 0602/26/23 0647 NA 136 137 K 3.7 3.6* CL 105 107 CO2 21 18* GLUCOSE 112* 78 BUN 20 17 CREATININE 0.64* 0.54* MG 2.0 -- ANIONGAP 10 12 LABGLOM >60 >60 CALCIUM 8.1* 8.3* CAION 1.05* -- PHOS 2.6 -- Recent Labs 02/25/23 0602/26/23 0647 PROT 5.3* 5.6* LABALBU 3.0* 3.0* AST 71* 62* ALT 105* 88* ALKPHOS 208* 219* BILITOT 8.1* 7.5* LIPASE 902* -- TRIG 159* -- ABG:No results found for: POCPH, PHART, PH, POCPCO2, IPQ9AMV, PCO2, POCPO2, PO2ART, PO2, POCHCO3, KGE3GBW, HCO3, NBEA, PBEA, BEART, BE, THGBART, THB, TAK8PFZ, FOQI1GXI, S7ROYKNF, O2SAT, FIO2 No results found for: SPECIAL No results found for: CULTURE Radiology: MRI ABDOMEN WO CONTRAST MRCP Result Date: 02/25/2023 Unremarkable MRCP. Physical Examination: General appearance: alert, cooperative and no distress Mental Status: oriented to person, place and time and normal affect Lungs: clear to auscultation bilaterally, normal effort Heart: regular rate and rhythm, no murmur Abdomen: Mild right upper quadrant and epigastric tenderness Extremities: no edema, redness, tenderness in the calves Skin: no gross lesions, rashes, induration Assessment: Hospital Problems Last Modified POA * (Principal) Acute pancreatitis without infection or necrosis 02/25/2023 Yes Primary hypertension 02/25/2023 Yes Transaminitis 02/25/2023 Yes Hyperbilirubinemia 02/25/2023 Yes Elevated alkaline phosphatase level 02/25/2023 Yes Hearing loss 02/25/2023 Yes Plan: Acute pancreatitis-possibly gallstone pancreatitis-continue IV fluids but decrease the rate. GI and general surgery are contemplating ERCP with cholecystectomy possibly tomorrow Essential hypertension-blood pressure medications on hold. Blood pressure currently acceptable Transaminitis/hyperbilirubinemia-co ntinue to monitor, follow GI/surgery plan Replace potassium DVT prophylaxis Tomás Lopez MD 02/26/2023 2:44 PM [facility] Gastroenter[facility] Progress Note Yael Contreras is a 72 y.o. male patient. Hospitalization Day:2 Chief consult reason: Gallstone pancreatitis, possible ERCP Subjective: Patient seen and examined. Patient continues to report slight RRUQ abdominal discomfort. No nausea or vomiting at this time Objective: VITALS: BP 127/76 Pulse 63 Temp 97.9 F (36.6 C) (Oral) Resp 15 Ht 5' 10 (1.778 m) Wt 217 lb 9.5 oz (98.7 kg) SpO2 98% BMI 31.22 kg/m TEMPERATURE: Current - Temp: 97.9 F (36.6 C); Max - Temp Av F (36.7 C) Min: 97.9 F (36.6 C) Max: 98 F (36.7 C) Physical Assessment: General appearance: alert, cooperative and no distress Mental Status: oriented to person, place and time and normal affect Lungs: clear to auscultation bilaterally, normal effort Heart: regular rate and rhythm, no murmur Abdomen: soft, obese, slight tenderness, nondistended,+ bowel sounds, Extremities: no edema, no redness, No clubbing Skin: warm, dry, no gross lesions or rashes CURRENT MEDICATIONS: Scheduled Meds: sodium chloride flush 5-40 mL IntraVENous 2 times per day [Held by provider] enoxaparin 40 mg SubCUTAneous Daily Continuous Infusions: sodium chloride 150 mL/hr at 02/26/23 0834 sodium chloride PRN Meds:sodium chloride flush, sodium chloride, potassium chloride, magnesium sulfate, HYDROmorphone OR HYDROmorphone, ondansetron OR ondansetron Data Review: LABS and IMAGING: CBC Recent Labs 02/25/23 0600 WBC 6.3 HGB 12.8* HCT 37.4* MCV 90.3 MCHC 34.2 RDW 13.2 PLT 124* Immature PLTs No results found for: PLTFLUORE ANEMIA STUDIES No results for input(s): LABIRON, TIBC, IRON, FERRITIN, [id number], FOLATE, OCCULTBLD in the last 72 hours. BMP Recent Labs 02/25/23 0600 02/26/23 0647 NA 136 137 K 3.7 3.6* CL 105 107 CO2 21 18* BUN 20 17 CREATININE 0.64* 0.54* GLUCOSE 112* 78 CALCIUM 8.1* 8.3* LFTS Recent Labs 02/25/23 0600 02/26/23 0647 ALKPHOS 208* 219* ALT 105* 88* AST 71* 62* BILITOT 8.1* 7.5* LABALBU 3.0* 3.0* AMYLASE/LIPASE/AMMONIA Recent Labs 02/25/23 0600 LIPASE 902* Acute Hepatitis Panel No results found for: HEPBSAG, HEPCAB, HEPBIGM, HEPAIGM HCV Genotype No results found for: HEPATITISCGENOTYPE HCV Quantitative No results found for: HCVQNT LIVER WORK UP: AFP No results found for: AFP Alpha 1 antitrypsin No results found for: A1A Anti - Liver/Kidney Ab No results found for: LIVER-KIDNEYMICROSOMALAB KARL No results found for: KARL AMA No results found for: MITOAB ASMA No results found for: SMOOTHMUSCAB Ceruloplasmin No results found for: CERULOPLSM Celiac panel No results found for: TISSTRNTIIGG, TTGIGA, IGA IgG No results found for: IGG IgM No results found for: IGM GGT No results found for: LABGGT PT/INR Recent Labs 02/25/23 0600 02/26/23 1019 PROTIME 14.1 13.1 INR 1.1 1.0 Cancer Markers: CEA: No results found for: CEA Ca 125: No results found for: CA125 Ca 19-9: No results found for: CA199 AFP: No results found for: AFP Lactic acid:No results for input(s): LACTACIDWB in the last 72 hours. Radiology Review: .. MRI ABDOMEN WO CONTRAST MRCP Final Result Unremarkable MRCP. ENDOSCOPY Principal Problem: Acute pancreatitis without infection or necrosis Active Problems: Primary hypertension Transaminitis Hyperbilirubinemia Elevated alkaline phosphatase level Hearing loss Resolved Problems: * No resolved hospital problems. * GI Assessment: Abnormal LFTs Elevated lipase Distended gallbladder -Suspect gallstone pancreatitis. MRCP unremarkable however patient LFTs remain significantly elevated. Concern for translucent CBD stone versus sludge versus other. Plan of care: We will plan for EUS +/- ERCP. can be completed in conjunction with cholecystectomy by general surgery team. Timing to be determined Trend LFTs Clear liquid diet then n.p.o. after midnight per GS Time spent reviewing chart, seeing patient, and discussing with attending: Around 35 minutes This plan was formulated in collaboration with Dr. Whitney Please feel free to contact me with any questions or concerns. Thank you for allowing me to participate in the care of your patient. GRETEL Tse CNP on 02/26/2023 at 1:21 PM [facility] Please note that this note was generated using a voice recognition dictation software. Although every effort was made to ensure the accuracy of this automated medical and scientific illustrator, some errors in medical and scientific illustrator may have occurred. Physical Therapy Facility/Department: [address] ORTHO/MED SURG Physical Therapy Initial Assessment Name: Yael Contreras : 1950 Date of Service: 02/25/2023 admitted to the hospital for the management of Acute pancreatitis without infection or necrosis. Discharge Recommendations: No therapy recommended at discharge PT Equipment Recommendations Equipment Needed: No Patient Diagnosis(es): There were no encounter diagnoses. Past Medical History: has a past medical history of Hearing loss. Past Surgical History: has a past surgical history that includes Dental surgery and Rotator cuff repair. Assessment Assessment: The pt ambulated 75 ft without a device x SBA. He ambulated safely with no c/o pain or dizziness. No further PT intervention is needed at this time Therapy Prognosis: Good Decision Making: Medium Complexity Requires PT Follow-Up: No Activity Tolerance Activity Tolerance: Patient tolerated evaluation without incident Plan Physcial Therapy Plan General Plan: Discharge with evaluation only Safety Devices Type of Devices: Nurse notified, Left in bed, Gait belt, Call light within reach Restraints Restraints Initially in Place: No Restrictions Restrictions/Precautions Restrictions/Precautions: General Precautions Required Braces or Orthoses?: No Position Activity Restriction Other position/activity restrictions: Up with assist Subjective General Patient assessed for rehabilitation services?: Yes Response To Previous Treatment: Not applicable Family / Caregiver Present: No Follows Commands: Within Functional Limits Subjective Subjective: The reported a 4/10 pain level inhis abd area Social/Functional History Social/Functional History Lives With: Spouse Type of Home: House Home Layout: Two level, Able to Live on Main level with bedroom/bathroom Home Access: Stairs to enter with rails Entrance Stairs - Number of Steps: 5 Entrance Stairs - Rails: Both Bathroom Shower/Tub: Walk-in shower Bathroom Toilet: Standard Home Equipment: (No DME at baseline) ADL Assistance: Independent Homemaking Assistance: Independent Homemaking Responsibilities: Yes Ambulation Assistance: Independent Transfer Assistance: Independent Active Churn Operator Margarine: Yes Mode of Transportation: Car, Truck 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 Leisure & Hobbies: Taking care of the home Vision/Hearing Vision Vision: Impaired Vision Exceptions: Wears glasses at all times Hearing Hearing: Within functional limits Cognition Orientation Overall Orientation Status: Within Functional Limits Orientation Level: Oriented X4 Cognition Overall Cognitive Status: WFL Objective Pulse: 75 Heart Rate Source: Monitor BP: 120/72 BP Location: Right upper arm BP Method: Automatic MAP (Calculated): 88 Respirations: 14 SpO2: 97 % O2 Device: None (Room air) AROM RLE (degrees) RLE AROM: WNL AROM LLE (degrees) LLE AROM : WNL AROM RUE (degrees) RUE AROM : WNL AROM LUE (degrees) LUE AROM : WNL Strength RLE Strength RLE: WNL Strength LLE Strength LLE: WNL Strength RUE Strength RUE: WNL Strength LUE Strength LUE: WNL Bed mobility Supine to Sit: Stand by assistance Sit to Supine: Stand by assistance Scooting: Stand by assistance Transfers Sit to Stand: Stand by assistance Stand to Sit: Stand by assistance Ambulation Amb 75 ft without a device x SBA Surface: Level tile Device: No Device Balance Posture: Good Sitting - Static: Good Sitting - Dynamic: Good Standing - Static: Good Standing - Dynamic: Good OutComes Score AM-PAC Score AM-PAC Inpatient Mobility Raw Score : 24 (02/25/231351) AM-PAC Inpatient T-Scale Score : 61.14 (02/25/231351) Mobility Inpatient CMS 0-100% Score: 0 (02/25/231351) Mobility Inpatient CMS G-Code Modifier : CH (02/25/231351) Tinneti Score Goals Short Term Goals Time Frame for Short Term Goals: No PT needs at this time DC PT Education Patient Education Education Given To: Patient Education Provided: Role of Therapy;Plan of Care Education Method: Verbal Barriers to Learning: None Education Outcome: Verbalized understanding Therapy Time Individual Concurrent Group Co-treatment Time In 1320 Time Out 1341 Minutes 21 Gordo Ramos, PT RN unable to complete the Med list because pt does not know the names of his meds, RN tried to call to get the list , call could not go through. Will try again during day documented in this encounter [facility] Procedure note 01-14-2022 Note Date & Type Note Facility 01-14-2022 Procedure note [facility] Evaluation note Note Date & Type Note Facility Evaluation note No assessment information availa [facility] Work Phone: Evaluation note Note Date & Type Note Facility Evaluation note Diagnosis Acute pancreatitis without infection or necrosis- Primary Acute cholecystitis due to biliary calculus Primary hypertension Unspecified essential hypertension Transaminitis Nonspecific elevation of levels of transaminase or lactic acid dehydrogenase (LDH) Hyperbilirubinemia Disorders of bilirubin excretion Elevated alkaline phosphatase level Other nonspecific abnormal serum enzyme levels Hearing loss Unspecified hearing loss documented in this encounter [facility] History and physical note Note Date & Type Note Facility History and physical note Note Date/Time January 14, 2022 11:35 am [facility] [address] [place], [place] [id number] Gastroenterology H&P Signed Patient: Yael Contreras MR#: [id number] : 1950 Acct:[id number] Age/Sex: 71 / M Adm Date: 2 Loc: Room: Type: [facility] Attending Dr: Frank Rivas MD Copies to: MD Shaikh Bobby Garza MD~ Date of Service: 01/14/2022 HISTORY & PHYSICAL: Patient's history with special attention to the cardiovascular, pulmonary systems and the current problem was reviewed with the patient immediately prior to the procedure. Present medications and doses reviewed in the EMR. Allergies and pertinent laboratory tests were also reviewedat this time in the EMR. The physical examination, as below, was then performed. Indication, assessment and HPI: This is a 71-year-old male who presents for colonoscopy to evaluate history of anemia Family history of GI malignancy? No PHYSICAL EXAMINATION Mouth and Pharynx : Moist mucus membranes, normal dentition Cardiac: Regular rate, regular rhythm Pulmonary: Clear to auscultation bilaterally, no wheezing Neurological: Alert and oriented x3, no focal deficits noted Abdomen: Abdomen soft, non-tender REVIEW OF SYSTEMS Constitutional: Denies malaise, fevers Cardiovascular: Denies chest pain, palpitations Respiratory: Denies shortness of breath, wheezing Gastrointestinal: Per HPI Genitourinary: Denies dysuria, polyuria Musculoskeletal: Denies joint swelling, joint stiffness Neurological: Denies numbness, tingling Integumentary: Denies rashes, skin lesions Endocrine: Denies fatigue, weight loss Written informed consent obtained from the patient. Risks (including but not limited to perforation, infection, bloating, bleeding, need for emergent surgeryand loss of life), benefits and alternatives explained and questions answered. The patient verbalized understanding. Based on history patient is an appropriate candidate for the procedure. Frank Rivas MD Documented By: Frank Rivas MD 01/14/22 1130 Signed By: <Electronically signed by Frank Rivas MD> 01/14/22 [address] [facility] Work Phone: Chief Complaint and Reason for Visit Chief Complaint Iron Deficiency Anem ia Chief Complaint Iron Deficiency Anem ia Iron Deficiency Anemia Advance Directives No Advanced Directives Records Found Advance Directive Response Recorded Date/ Time Advance Directives No January 11 9:19am Latest Code Status on File Code Status Date Activated Date Inactivated Comments Full Code 02/24/2023 8:54 PM Summary Purpose Family History No Family History Records Found Relationship Condition Age at Onset Recorded Date/T silvia Not Specified Diabetes mellitus Unknown Heart disease Unknown brother Heart disease Unknown brother Malignant neoplasm of colon Unknown daughter Depression Unknown Additional Source Comments Care Teams (unrecognized sec tion and content) Team Status: Inactive Member Role Status Dates Frank Rivas MD Attending Provider Active Shaikh Bobby MD Primary Care Provider Active Team Status: Active Member Role Status Dates Shaikh Bobby MD Primary Care Provider Active Goals (unrecognized section and content) Goals may be documented in a n alternate section (unrecognized sect ion and content) No Status Records FoundNo Status Records FoundNo Status Records FoundNo Status Records Found INFORMATION SOURCE (unrecogn ized section and content) DATE CREATED AUTHOR 01/24/2022 [facility] DATE CREATED AUTHOR AUTHOR'S ORGANIZ ATION 04/19/2022 [facility] DATE CREATED AUTHOR AUTHOR'S ORGANIZ ATION 06/19/2022 [facility] DATE CREATED AUTHOR AUTHOR'S ORGANIZ ATION 03/22/2023 [facility] Reason for Visit (unrecogniz ed section and content) Specialty Diagnoses / Procedures Referred By [facility] Referred To Contact Diagnoses Acute pancreatitis without infection or necrosis Pancreatitis Tomás Lopez MD [address] [address] [facility] [address] [place] [address] Referral ID Status Reason Start Date Expiration Date Visits Re quested Visits Authorized [id number] 1 1 Ordered Prescriptions (unrec ognized section and content) Prescription Sig Dispensed Refills Start Date End Da te oxyCODONE (ROXICODONE) 5 MG immediate release tabletIndications:Acute cholecystitis due to biliary calculus Take 1 tablet by mouth every 6 hours as needed for Pain for up to 5 days. Max Daily Amount: 20 mg 20 tablet 0 03/02/2023 03/07/2023 Scheduled Active and Recently Administ ered Medications (unrecognized section and content) Medication Order 03/01/2023 03/02/2023 03/03/2023 acetaminophen (TYLENOL) tablet 1,000 mg 1,000 mg, Oral, EVERY 8 HOURS SCHEDULED (3 times per day), First dose on Tue03/01/23 at 1615, Until Discontinued, Maximum dose of acetaminophen is 4000 mg from all sources in 24 hours. 1712 (Not Given - Provider: Oscar Mathis RN - Reason: Patient/family refused)2309 (Given - Provider: Stephanie Ross RN) 0436 (Given - Provider: Stephanie Ross, RN)1512 (Not Given - Provider: Juanita Dodson RN - Reason: Patient/family refused)2253 (Given - Provider: Ngozi Boone RN) 0516 (Given - Provider: Ngozi Boone RN)1241 (Given - Provider: Juanita Dodson, JOHN)2200 (Due) enoxaparin (LOVENOX) injection 40 mg 40 mg, SubCUTAneous, DAILY, First dose on Tue02/25/23 at 0900, Until Discontinued, Indication of Use: Prophylaxis-DVT/PE, Administer by deep subCUTAneous injection with pt lying down. Alternate injection sites on abdominal wall. Do not rub site after injection. Check with provider prior to any invasive procedure. 09 (Given - Provider: Oscar Mathis RN) 0944 (Given - Provider: Juanita Dodson RN) 0938 (Not Given - Provider: Juanita Dodson RN - Reason: Patient/family refused) hydroCHLOROthiazide (HYDRODIURIL) tablet 25 mg 25 mg, Oral, DAILY, First dose on Tue02/27/23 at 2115, Until Discontinued 0924 (Given - Provider: Oscar Mathis RN) 0944 (Given - Provider: Juanita Dodson RN) 0933 (Given - Provider: Juanita Dodson RN) losartan (COZAAR) tablet 100 mg 100 mg, Oral, DAILY, First dose on Tue02/27/23 at 2115, Until Discontinued 0923 (Given - Provider: Oscar Mathis RN) 0944 (Given - Provider: Juanita Dodson RN) 0932 (Given - Provider: Juanita Dodson RN) methocarbamol (ROBAXIN) tablet 750 mg 750 mg, Oral, EVERY 6 HOURS, First dose on Tue03/01/23 at 1615, Until Discontinued 1713 (Not Given - Provider: Oscar Mathis RN - Reason: Medication not available)2309 (Given - Provider: Stephanie Ross RN) 0436 (Given - Provider: Stephanie Ross RN)0944 (Given - Provider: Juanita Dodson RN)1758 (Given - Provider: Juanita Dodson RN)2253 (Given - Provider: Ngozi Boone RN) 0516 (Given - Provider: Ngozi Boone RN)1134 (Not Given - Provider: Juanita Dodson RN - Reason: Patient not available)1615 (Due)2215 (Due) piperacillin-tazobactam (ZOSYN) 3,375 mg in sodium chloride 0.9 % 50 mL IVPB (mini-bag) (CANCELED) 3,375 mg, IntraVENous, EVERY 8 HOURS, First dose on Tue02/28/23 at 1300, Until Discontinued, Antimicrobial Indications: Intra-Abdominal Infection 0021 (New Bag - Provider: Mariana Villavicencio RN)0422 (Stopped - Provider: Mariana Villavicencio RN)0918 (New Bag - Provider: Oscar Mathis RN)1318 (Stopped - Provider: Oscar Mathis RN)1611 (New Bag - Provider: Oscar Mathis RN)2123 (Stopped - Provider: Stephanie Ross, JOHN) 0034 (New Bag - Provider: Stephanie Ross RN)0435 (Stopped - Provider: Stephanie Ross RN)0951 (New Bag - Provider: Juanita Dodson RN)1351 (Stopped - Provider: Juanita Dodson RN)1801 (New Bag - Provider: Juanita Dodson RN)2227 (Stopped - Provider: Stephanie Ross RN) 0109 (New Bag - Provider: Ngozi Boone RN)0519 (Stopped - Provider: Ngozi Boone RN)0853 (Not Given - Provider: Juanita Dodson RN - Reason: Other - Comment: order discontinued) sodium chloride flush 0.9 % injection 5-40 mL 5-40 mL, IntraVENous, EVERY 12 HOURS SCHEDULED (2 times per day), First dose on Tue02/24/23 at 2115, Until Discontinued, For Line Patency: Peripheral IV = 5 mL; Midline or Central Line = 10 mL/lumen. If following IV push medication, administer flush at same rate as the IV push. Flush volume is determined by type of infusion therapy being given. For non-viscous solutions use: Peripheral IV = 5 mL Midline or Central Line = 10 mL/lumen For viscous solutions (i.e. blood components, parenteral nutrition, contrast media, or after obtaining blood sample) use: Peripheral IV = 10 mL Midline or Central Line = 20 mL/lumen 0925 (Given - Provider: Oscar Mathis RN)212 (Not Given - Provider: Stephanie Ross RN - Reason: Other - Comment: dup order) 0948 (Given - Provider: Juanita Dodson RN)2227 (Given - Provider: Stephanie Ross RN) 0933 (Given - Provider: Juanita Dodson RN)2100 (Due) Continuous Medication Order 03/01/2023 03/02/2023 03/03/2023 0.9 % sodium chloride infusion (CANCELED) IntraVENous, at 75 mL/hr, CONTINUOUS, Starting on Tue02/28/23 at 0100 0018 (New Bag - Provider: Mariana Villavicencio RN) PRN Medication Order 03/01/2023 03/02/2023 03/03/2023 dicyclomine (BENTYL) capsule 20 mg 20 mg, Oral, 3 TIMES DAILY PRN, 4 doses, Starting on Tue02/28/23 at 1129, Until Discontinued, Abdominal Cramping 922 (Given - Provider: Oscar Mathis RN) magnesium sulfate 1000 mg in dextrose 5% 100 mL IVPB 1,000 mg, IntraVENous, at 100 mL/hr, Administer over 1 Hours, PRN, Other, Magnesium Replacement, Starting on Tue02/24/23 at 2054, Mg Lab Replacement Action 1.4-1.6 1 gram IVPB x 2 doses (2 grams total) 1.0-1.3 1 gram IVPB x 4 doses (4 grams total) < 1.0 CALL PHYSICIAN and 1 gram IVPB x 4 doses (4 grams total) Infuse at 1 gram/hr. Repeat Mag level next AM. Not for use in Patients with CrCl less than 30 mL/min. ondansetron (ZOFRAN) injection 4 mg(Linked Group 1) 4 mg, IntraVENous, EVERY 6 HOURS PRN, Starting on Tue02/24/23 at 2053, Until Discontinued, Nausea, Vomiting, Administer if oral route cannot be used. ondansetron (ZOFRAN-ODT) disintegrating tablet 4 mg(Linked Group 1) 4 mg, Oral, EVERY 8 HOURS PRN, Starting on Tue02/24/23 at 2053, Until Discontinued, Nausea, Vomiting oxyCODONE (ROXICODONE) immediate release tablet 5 mg 5 mg, Oral, EVERY 6 HOURS PRN, Starting on Tue02/28/23 at 1054, Until Discontinued, Pain Moderate (4-6) 1317 (Given - Provider: Oscar Mathis, JOHN)2033 (Given - Provider: Stephanie Ross, JOHN) 0436 (Given - Provider: Stephanie Ross, JOHN)1758 (Given - Provider: Juanita Dodson, JOHN) 1241 (Given - Provider: Juanita Dodson, JOHN) potassium chloride 10 mEq/100 mL IVPB (Peripheral Line) 10 mEq, IntraVENous, PRN, Starting on Tue02/24/23 at 2053, Until Discontinued, at 100 mL/hr, Potassium Replacement, K Lab Replacement Action 3.1-3.5 10 mEq IVPB x 4 doses (40 mEq Total) 2.7-3.0 10 mEq IVPB x 6 doses (60 mEq Total) < 2.7 CALL PHYSICIAN and 10 mEq IVPB x 6 doses (60 mEq Total) Infuse at 10 mEq/hr. Repeat Potassium lab 1 hour after final administration. Not for use in patients with CrCl less than 30 mL/min. sodium chloride flush 0.9 % injection 5-40 mL 5-40 mL, IntraVENous, PRN, Starting on Tue02/24/23 at 2053, Until Discontinued, Line Care, After every IV line use, For Line Patency: Peripheral IV = 5 mL; Midline or Central Line = 10 mL/lumen. If following IV push medication, administer flush at same rate as the IV push. Flush volume is determined by type of infusion therapy being given. For non-viscous solutions use: Peripheral IV = 5 mL Midline or Central Line = 10 mL/lumen For viscous solutions (i.e. blood components, parenteral nutrition, contrast media, or after obtaining blood sample) use: Peripheral IV = 10 mL Midline or Central Line = 20 mL/lumen Linked Groups Order Group 1: ondansetron (ZOFRAN-ODT) disintegrating tablet 4 mgJump to med 4 mg, Oral, EVERY 8 HOURS PRN, Starting on Kelly 02/24/23 at 2053, Until Discontinued, Nausea, Vomiting Or ondansetron (ZOFRAN) injection 4 mgJump to med 4 mg, IntraVENous, EVERY 6 HOURS PRN, Starting on Kelly 02/24/23 at 2053, Until Discontinued, Nausea, Vomiting
Administer if oral route cannot be used.
FOR RECORDS PERTAINING TO PATIENTS WHO ARE OR HAVE BEEN ENROLLED IN A CHEMICAL DEPENDENCY/SUBSTANCEABUSE PROGRAM, SOME INFORMATION MAY BE OMITTED. This clinical summary was aggregated from multiple sources. Caution should be exercised in using it in the provision of clinical care. This summary normalizes information from multiple sources, and as a consequence, information in this document may materially change the coding, format and clinical context of patient data. In addition, data may be omitted in some cases. CLINICAL DECISIONS SHOULD BE BASED ON THE PRIMARY CLINICAL RECORDS. [employer] [facility]. provides no warranty or guarantee of the accuracy or completeness of information in this document.
== END 2023-06-29 14:28 | disposition home or self-care (01) ==
LOC: LAB 14:28
PROVIDERS: PCP Internal Medicine; Visit Provider Internal Medicine
DX: D50.9 Iron deficiency anemia, unspecified (principal); I10 Essential (primary) hypertension
CPT/HCPCS: 36415; 80048; 82728; 83540; 83550; 84466; 85025